=== PATIENT | male | born 1960 | race Caucasian/White ===

== ENCOUNTER → 2019-03-27 13:01 | Outpatient (CLI) | payer MEDICARE, SELFPAY ==
--- NOTE | 2019-03-27 13:00 | SP.MBSS_ITS ---
PRIMARY / SECONDARY DIAGNOSIS: dysphagia (R13.10) REFERRING PHYSICIAN: Dr. Sterling Grier MD. CURRENT DIET: regular textures, thin liquids DENTITION: WFL MENTAL STATUS: sufficient for participation RESPIRATORY STATUS: O2 via room air REASON FOR REFERRAL: The Patient is a 58 year old male referred for a modified barium swallow (MBS) study to objectively assess the Patients oropharyngeal swallow function under fluoroscopy secondary to persistent post irradiation dysphagia for both solids and liquids. MEDICAL HISTORY: Oropharyngeal cancer status post irradiation (2002), prior cerebrovascular accident, esophageal strictures status post dilatation (2003), status post cardiac stent placement (all per Patient report; no information in EMR). PREVIOUS MODIFIED BARIUM SWALLOW STUDY: None. ASSESSMENT PARAMETERS: The Patient participated in a Modified Barium Swallow (MBS) study on 03/27/2019. Dr. Ashraf was the radiologist present for this evaluation. This study was recorded in the lateral view and images were sent to PACs for storage. Scoring was completed through each trial using the 8-point Penetration-Aspiration Scale (PAS) and the Videofluoroscopic Scale Score (VSS), and summarized via the Modified Barium Swallow Impairment Profile (MBSImP) and the Bolus Residue Scale (BRS), with severity scoring through the Dysphagia Severity Rating Scale (DSRS), the Swallowing Performance Scale (PSP), and the Dynamic Imaging Grade of Swallowing Toxicity (DIGEST), and recommended diet textures through the International Dysphagia Diet Standardisation Initiative (IDDSI). RESULTS OF THE EVALUATION: The Patient presents with moderate to severe pharyngeal dysphagia (DSRS: 5; SPS: 7; DIGEST: grade III) with grade III SILENT aspiration of thin liquids, consistent penetration without consistent ejection of all viscosities, and significant pharyngeal dysmotility secondary to prior oropharyngeal cancer status post irradiation. OBJECTIVE ASSESSMENT OF SWALLOW FUNCTION (QUANTITATIVE ? PER TRIAL): PENETRATION / ASPIRATION SCALE (MCGOWAN): 1 = does not enter airway 2 = enters airway/above vocal folds/ejected 3 = enters airway/above vocal folds/not ejected 4 = enters airway/contacts vocal folds/ejected 5 = enters airway/contacts vocal folds/not ejected 6 = enters airway/below vocal folds/ejected 7 = enters airway/below vocal folds/not ejected despite effort 8 = enters airway/below vocal folds/no effort VIDEOFLOROSCOPIC SCALE SCORE (MCGOWAN): Grade I = aspiration of material that has penetrated into the laryngeal vestibule, intact cough reflex Grade II = aspiration < 10 % of the bolus, intact cough reflex Grade III = aspiration of < 10 % of the bolus, reduced cough reflex or aspiration of > 10 % of the bolus, intact cough reflex Grade IV = aspiration of > 10 % of the bolus, reduced cough reflex PENETRATION / ASPIRATION SCALE (SCORE) WITH VIDEOFLOROSCOPIC SCALE SCORE: Thin liquid - 5 mL tsp.: 8 ? Grade III Thin liquids via cup (single sip): 8 ? Grade III [place] thickened liquids via straw (single sip): 3 [place] thickened liquids via straw (single sip): 3 [place] thickened liquids via straw (single sip): 2 Pudding via spoon: 2 [place] thickened liquids via straw (chin tuck): 3 [place] thickened liquids via straw (single sip): 3 [place] thickened liquids via straw (post cough): 2 [place] thickened liquids via straw (post cough): 2 OBJECTIVE ASSESSMENT OF SWALLOW FUNCTION (QUANTITATIVE ? AGGREGATE): MODIFIED BARIUM SWALLOW IMPAIRMENT PROFILE (MBSImP) LABIAL SEAL: 0 (of 4) no labial escape TONGUE CONTROL: 0 (of 3) cohesive bolus BOLUS PREPARATION / MASTICATION: held due to safety concerns BOLUS TRANSPORT / LINGUAL MOTION: 1 (of 4) delayed initiation of motion ORAL RESIDUE: 2 (of 4) residue collection on oral structures INITIATION OF PHARYNGEAL SWALLOW: 1 (of 4) valleculae SOFT PALATE ELEVATION: 0 (of 4) no bolus between soft palate & pharyngeal wall LARYNGEAL ELEVATION: 2 (of 3) minimal superior movement / approximation ANTERIOR HYOID EXCURSION: 1 (of 2) partial movement EPIGLOTTIC MOVEMENT: 1 (of 2) partial inversion LARYNGEAL VESTIBULE CLOSURE: 1 (of 2) incomplete closure PHARYNGEAL STRIPPING WAVE: 2 (of 2) absent PE SEGMENT OPENIN (of 3) minimal distension / duration; marked obstruction TONGUE BASE RETRACTION: 4 (of 4) no visible posterior motion PHARYNGEAL RESIDUE: 4 (of 4) minimal to no pharyngeal clearance ESOPHAGEAL BOLUS CLEARANCE: could not view BOLUS RESIDUE SCALE (BRS): 6 (of 6) residue in valleculae, posterior pharyngeal wall, and piriform sinus DYSPHAGIA SEVERITY RATING SCALE (DSRS): 5 (moderate-severe) SWALLOWING PERFORMANCE SCALE (SPS): 7 (severe) DYNAMIC IMAGING GRADE OF SWALLOWING TOXICITY (DIGEST) DIGEST SAFETY GRADE: Grade 2 DIGEST EFFICIENCY GRADE: Grade 3 SUMMARY DIGEST GRADE: Grade 3 (severe) OBJECTIVE ASSESSMENT OF SWALLOW FUNCTION (QUALITATIVE): ORAL PREPARATORY PHASE: solid textures held due to safety concerns for asphyxiation given the profound level of pharyngeal dysmotility observed; sufficient anterior oral containment during presentation / manipulation; preserved management of breathing / bolus formation. ORAL TRANSITIONAL PHASE: inconsistent bolus manipulation / transportation possibly attributed to anticipatory effect (fully aware of dysphagia); overall sufficient oral clearance with textures trialed; sufficient oral containment across textures. PHARYNGEAL PHASE: no signs of pharyngeal dyssynchrony; reduced hyolaryngeal excursion and duration with insufficient laryngeal vestibule pressure generated to consistently expel penetrated material; profound pharyngeal dysmotility with little to no pharyngeal constriction, pharyngoesophageal segment relaxation, and very poor epiglottic deflection throughout trials, with nearly complete pharyngeal retention of semisolid textures; no signs of velopharyngeal impairments; ESOPHAGEAL PHASE: no obvious esophageal phase abnormalities observed. CONTRIBUTING / COMPLICATING FACTORS AND NOTABLE FINDINGS: absent cough in response to tracheobronchial aspiration (atussia); weak cued volitional cough intensity generated to expel penetrated material / tracheobronchial aspiration (dystussia); thickened appearance to the epiglottis. RESPONSE TO STRATEGIES: Insufficient / inconsistent effects noted from a variety of compensatory strategies implemented across studies, with best results noted with multiple swallows with liquid wash following semisolid ingestion with volitional post prandial cough. DYSPHAGIA ASSOCIATED MEDICAL CONSIDERATIONS / INTERVENTION CONSIDERATIONS: The Patient was noted to SILENTLY aspirate with thin liquids, with clinical assessment at bedside relying on identification of classic overt signs and symptoms of aspiration considered unreliable. Would consider the Patient to be at a higher risk of aspiration related medical complications / aspiration pneumonia / aspiration related pulmonary syndrome secondary to prior history of a cerebrovascular accident, prior oropharyngeal cancer status post radiation therapy presence of dysphagia with extensive pharyngeal phase impairment, presence of SILENT aspiration identified under fluoroscopy, and potential for tracheobronchial aspiration of more dense viscosities, Would consider this Patient to be a high risk for malnutrition and dehydration due to the extent of recommended liquid viscosities / diet texture restrictions and the related negative impact on palatability / intake pleasure / quality of life and anticipated smaller PO intake quantities, and the severity of dysphagia. May need to strongly consider alternative means of nutrition. INTERVENTION RECOMMENDATIONS AND CONSIDERATIONS: The Patient requires intensive skilled speech-language intervention targeting diet texture management and training / implementation of recommended compensatory strategies; training and implementation of recommended oropharyngeal strengthening exercises to facilitate improved / maintained laryngeal vestibule closure / pressure and pharyngeal motility; training and implementation of a home oral care protocol to reduce the effects of xerostomia and improve / maintain the integrity of the oral mucosa reducing the risk of aspiration related pulmonary complications; Patient / caregiver education regarding post-irradiation dysphagia and associated symptomology; Patient and caregiver training targeting meal preparation / thickened liquid preparation POST ASSESSMENT EDUCATION: Results and recommendations were briefly discussed with the Patient immediately following MBS completion, with the Patient verbalizing understanding and agreement with all recommendations and education provided, though further education is warranted. DIET TEXTURE RECOMMENDATIONS: Will recommend a pureed textured (IDDSI: 4), nectar thickened liquid (IDDSI: 2) diet RECOMMENDED COMPENSATORY STRATEGIES: Reduced bolus volume / rate of ingestion, cough following deglutition (considerations for training and implementation of the supraglottic swallow), liquid chaser, seated upright at 90 degrees during PO intake, remain upright for 30-60 minutes post meal (GERD precaution), medications one at a time with a liquid chaser. IMAGE COUNT: [id number] Samir Neves M.A., CCC-AVIATION SAFETY TECHNICIAN, CBIS MBSImP Certified, LSVT Certified [facility] Speech-Language Pathology Department [email or web address]
--- NOTE | 2019-03-27 13:05 | RAD_ITS ---
STUDY: SWALLOWING STUDY REASON FOR EXAM: Male, 58 years old. Patient had a previous larynx surgery for squamous cell cancer TECHNIQUE: The examination was performed with Speech Pathology in attendance. Under fluoroscopic observation, the patient ingested thin barium, thick barium, barium pudding, and barium coated cracker. FLUOROSCOPY TIME: 3:25 minutes/seconds RADIOLOGIST INVOLVEMENT: Dr. Carlos Ashraf observed and did fluoroscopy COMPARISON: None. FINDINGS: The following was observed during swallowing of the various mixtures of barium: Thin Barium: There was evidence of penetration and aspiration of thin barium Thick Barium: There was evidence of penetration of nectar thickened barium Barium Pudding: There was no evidence of aspiration or laryngeal penetration. Barium Coated Cracker: This was not given. RAD/Swallowing Function w/Video IMPRESSION: Aspiration penetration was performed with thin liquid barium and penetration was noted with nectar thickened barium. The swallow study findings were discussed with the patient by the speech pathologist at the conclusion of the examination. Please see speech pathology report for more information and recommendations. The procedure was performed by the speech therapist under the direct supervision of Dr. Carlos Ashraf Electronically Signed: Carlos Ashraf, at 15:38 EDT Tel , Service support ,
== END ==
PROVIDERS: Family Provider Family Medicine; PCP Family Medicine; Referring Provider Internal Medicine Gastroenterology; Visit Provider Internal Medicine Gastroenterology
DX: R13.10 Dysphagia, unspecified (principal)
CPT/HCPCS: 74230; 92611

== ENCOUNTER 2019-05-10 13:00 | Outpatient (RCR) | payer MEDICARE, SELFPAY ==
--- NOTE | 2019-04-05 13:09 | ST ---
[facility] Speech Pathology [address] [place] [address] Modified Barium Swallow Study MR#: [id number] Acct: [id number] Name: NOLBERTO AMAYA Rep #: [id number] : 1960 58 From: Samir Neves M.A., CCC-BOAT CLEANING SUPERVISOR PRIMARY / SECONDARY DIAGNOSIS: dysphagia (R13.10) REFERRING PHYSICIAN: Dr. Sterling Grier MD. CURRENT DIET: regular textures, thin liquids DENTITION: WFL MENTAL STATUS: sufficient for participation RESPIRATORY STATUS: O2 via room air REASON FOR REFERRAL: The Patient is a 58 year old male referred for a modified barium swallow (MBS) study to objectively assess the Patients oropharyngeal swallow function under fluoroscopy secondary to persistent post irradiation dysphagia for both solids and liquids. MEDICAL HISTORY: Oropharyngeal cancer status post irradiation (2002), prior cerebrovascular accident, esophageal strictures status post dilatation (2003), status post cardiac stent placement (all per Patient report; no information in EMR). PREVIOUS MODIFIED BARIUM SWALLOW STUDY: None. ASSESSMENT PARAMETERS: The Patient participated in a Modified Barium Swallow (MBS) study on 03/27/2019. Dr. Ashraf was the radiologist present for this evaluation. This study was recorded in the lateral view and images were sent to PACs for storage. Scoring was completed through each trial using the 8-point Penetration-Aspiration Scale (PAS) and the Videofluoroscopic Scale Score (VSS), and summarized via the Modified Barium Swallow Impairment Profile (MBSImP) and the Bolus Residue Scale (BRS), with severity scoring through the Dysphagia Severity Rating Scale (DSRS), the Swallowing Performance Scale (PSP), and the Dynamic Imaging Grade of Swallowing Toxicity (DIGEST), and recommended diet textures through the International Dysphagia Diet Standardisation Initiative (IDDSI). RESULTS OF THE EVALUATION: The Patient presents with moderate to severe pharyngeal dysphagia (DSRS: 5; SPS: 7; DIGEST: grade III) with grade III SILENT aspiration of thin liquids, consistent penetration without consistent ejection of all viscosities, and significant pharyngeal dysmotility secondary to prior oropharyngeal cancer status post irradiation. OBJECTIVE ASSESSMENT OF SWALLOW FUNCTION (QUANTITATIVE ? PER TRIAL): PENETRATION / ASPIRATION SCALE (MCGOWAN): 1 = does not enter airway 2 = enters airway/above vocal folds/ejected 3 = enters airway/above vocal folds/not ejected 4 = enters airway/contacts vocal folds/ejected 5 = enters airway/contacts vocal folds/not ejected 6 = enters airway/below vocal folds/ejected 7 = enters airway/below vocal folds/not ejected despite effort 8 = enters airway/below vocal folds/no effort VIDEOFLOROSCOPIC SCALE SCORE (MCGOWAN): Grade I = aspiration of material that has penetrated into the laryngeal vestibule, intact cough reflex Grade II = aspiration < 10 % of the bolus, intact cough reflex Grade III = aspiration of < 10 % of the bolus, reduced cough reflex or aspiration of > 10 % of the bolus, intact cough reflex Grade IV = aspiration of > 10 % of the bolus, reduced cough reflex PENETRATION / ASPIRATION SCALE (SCORE) WITH VIDEOFLOROSCOPIC SCALE SCORE: Thin liquid - 5 mL tsp.: 8 ? Grade III Thin liquids via cup (single sip): 8 ? Grade III [place] thickened liquids via straw (single sip): 3 [place] thickened liquids via straw (single sip): 3 [place] thickened liquids via straw (single sip): 2 Pud[place] via spoon: 2 [place] thickened liquids via straw (chin tuck): 3 [place] thickened liquids via straw (single sip): 3 [place] thickened liquids via straw (post cough): 2 [place] thickened liquids via straw (post cough): 2 OBJECTIVE ASSESSMENT OF SWALLOW FUNCTION (QUANTITATIVE ? AGGREGATE): MODIFIED BARIUM SWALLOW IMPAIRMENT PROFILE (MBSImP) LABIAL SEAL: 0 (of 4) no labial escape TONGUE CONTROL: 0 (of 3) cohesive bolus BOLUS PREPARATION / MASTICATION: held due to safety concerns BOLUS TRANSPORT / LINGUAL MOTION: 1 (of 4) delayed initiation of motion ORAL RESIDUE: 2 (of 4) residue collection on oral structures INITIATION OF PHARYNGEAL SWALLOW: 1 (of 4) valleculae SOFT PALATE ELEVATION: 0 (of 4) no bolus between soft palate & pharyngeal wall LARYNGEAL ELEVATION: 2 (of 3) minimal superior movement / approximation ANTERIOR HYOID EXCURSION: 1 (of 2) partial movement EPIGLOTTIC MOVEMENT: 1 (of 2) partial inversion LARYNGEAL VESTIBULE CLOSURE: 1 (of 2) incomplete closure PHARYNGEAL STRIPPING WAVE: 2 (of 2) absent PE SEGMENT OPENIN (of 3) minimal distension / duration; marked obstruction TONGUE BASE RETRACTION: 4 (of 4) no visible posterior motion PHARYNGEAL RESIDUE: 4 (of 4) minimal to no pharyngeal clearance ESOPHAGEAL BOLUS CLEARANCE: could not view BOLUS RESIDUE SCALE (BRS): 6 (of 6) residue in valleculae, posterior pharyngeal wall, and piriform sinus DYSPHAGIA SEVERITY RATING SCALE (DSRS): 5 (moderate-severe) SWALLOWING PERFORMANCE SCALE (SPS): 7 (severe) DYNAMIC IMAGING GRADE OF SWALLOWING TOXICITY (DIGEST) DIGEST SAFETY GRADE: Grade 2 DIGEST EFFICIENCY GRADE: Grade 3 SUMMARY DIGEST GRADE: Grade 3 (severe) OBJECTIVE ASSESSMENT OF SWALLOW FUNCTION (QUALITATIVE): ORAL PREPARATORY PHASE: solid textures held due to safety concerns for asphyxiation given the profound level of pharyngeal dysmotility observed; sufficient anterior oral containment during presentation / manipulation; preserved management of breathing / bolus formation. ORAL TRANSITIONAL PHASE: inconsistent bolus manipulation / transportation possibly attributed to anticipatory effect (fully aware of dysphagia); overall sufficient oral clearance with textures trialed; sufficient oral containment across textures. PHARYNGEAL PHASE: no signs of pharyngeal dyssynchrony; reduced hyolaryngeal excursion and duration with insufficient laryngeal vestibule pressure generated to consistently expel penetrated material; profound pharyngeal dysmotility with little to no pharyngeal constriction, pharyngoesophageal segment relaxation, and very poor epiglottic deflection throughout trials, with nearly complete pharyngeal retention of semisolid textures; no signs of velopharyngeal impairments; ESOPHAGEAL PHASE: no obvious esophageal phase abnormalities observed. CONTRIBUTING / COMPLICATING FACTORS AND NOTABLE FINDINGS: absent cough in response to tracheobronchial aspiration (atussia); weak cued volitional cough intensity generated to expel penetrated material / tracheobronchial aspiration (dystussia); thickened appearance to the epiglottis. RESPONSE TO STRATEGIES: Insufficient / inconsistent effects noted from a variety of compensatory strategies implemented across studies, with best results noted with multiple swallows with liquid wash following semisolid ingestion with volitional post prandial cough. DYSPHAGIA ASSOCIATED MEDICAL CONSIDERATIONS / INTERVENTION CONSIDERATIONS: The Patient was noted to SILENTLY aspirate with thin liquids, with clinical assessment at bedside relying on identification of classic overt signs and symptoms of aspiration considered unreliable. Would consider the Patient to be at a higher risk of aspiration related medical complications / aspiration pneumonia / aspiration related pulmonary syndrome secondary to prior history of a cerebrovascular accident, prior oropharyngeal cancer status post radiation therapy presence of dysphagia with extensive pharyngeal phase impairment, presence of SILENT aspiration identified under fluoroscopy, and potential for tracheobronchial aspiration of more dense viscosities, Would consider this Patient to be a high risk for malnutrition and dehydration due to the extent of recommended liquid viscosities / diet texture restrictions and the related negative impact on palatability / intake pleasure / quality of life and anticipated smaller PO intake quantities, and the severity of dysphagia. May need to strongly consider alternative means of nutrition. INTERVENTION RECOMMENDATIONS AND CONSIDERATIONS: The Patient requires intensive skilled speech-language intervention targeting diet texture management and training / implementation of recommended compensatory strategies; training and implementation of recommended oropharyngeal strengthening exercises to facilitate improved / maintained laryngeal vestibule closure / pressure and pharyngeal motility; training and implementation of a home oral care protocol to reduce the effects of xerostomia and improve / maintain the integrity of the oral mucosa reducing the risk of aspiration related pulmonary complications; Patient / caregiver education regarding post-irradiation dysphagia and associated symptomology; Patient and caregiver training targeting meal preparation / thickened liquid preparation POST ASSESSMENT EDUCATION: Results and recommendations were briefly discussed with the Patient immediately following MBS completion, with the Patient verbalizing understanding and agreement with all recommendations and education provided, though further education is warranted. DIET TEXTURE RECOMMENDATIONS: Will recommend a pureed textured (IDDSI: 4), nectar thickened liquid (IDDSI: 2) diet RECOMMENDED COMPENSATORY STRATEGIES: Reduced bolus volume / rate of ingestion, cough following deglutition (considerations for training and implementation of the supraglottic swallow), liquid chaser, seated upright at 90 degrees during PO intake, remain upright for 30-60 minutes post meal (GERD precaution), medications one at a time with a liquid chaser. IMAGE COUNT: [id number] Samir Neves M.A., GRECIA-BOAT CLEANING SUPERVISOR, CBIS MBSImP Certified, LSVT Certified [facility] Speech-Language Pathology Department 03/27/19 [id number] <Electronically signed by Samir Neves M.A., CCC-BOAT CLEANING SUPERVISOR> Date Samir Neves M.A., CCC-BOAT CLEANING SUPERVISOR Co-Signature Required for all Medicare patients Date/Time Co-Signature
--- NOTE | 2019-04-26 14:56 | HP.SP.AD_ITS ---
History - History Date of Eval: 04/05/19 Medical Diagnosis (from RX): R13.10 Date of Onset of Diagnosis: 03/27/2019 Previous speech therapy: Yes Other Relevant Medical History/Diagnoses/Surgery: oropharyngeal cancer status post radiation (2003), prior cerebrovascular accident, esophageal strictures status post dilatation (2003), status post cardiac stent placement (all per pt report from MBS study on 03/27/2019; no information in EMR), hx of reflux. 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 Objective Oral Motor - Oral Status Dentition: Upper Dentures, Lower Dentures - Labial Impairment: WNL Observation at Rest: Left Droop Closure: WNL Pucker: WFL Retraction: WFL Alternating Pucker/Retraction: WFL Involuntary Movement noted: No - Lingual Impairment: Mild Protrusion: WFL Retraction: Mild Lateralization: Mild Involuntary Movement: No - Lingual Comments Comments: Mild/Mod impairment in strength and ROM. - Jaw Impairment: WNL Opening: WNL Closing: WNL - Respiratory Status Respiratory Status: Room Air Subjective Dysphagia - Symptoms Reported Symptoms/Problems with: Coughing, Choking, Difficulty Swallowing Solids, Pain on Swallowing Other: Pain in R side of throat at level of thyroid. - Current Diet Solids Current Diet: Regular, Pureed Other: Pt reports he avoids beef and has difficulty with shrimp, pepperoni. - Current Diet Liquids Current Liquids: Thin Objective Dysphagia - Administered by Administered by: Self - [place] Thickened Liquids Administered via: Cup Symptoms: Throat Clearing Laryngeal Elevation: Impaired Oral Holding: No Gagging: No Comments: Pt requires multiple swallows (3-4) to complete each sip. - Pureed Symptoms: Throat Clearing, Couging, Immediate, Delayed Laryngeal Elevation: Impaired Comments: Pt requires multiple swallows (4-5) to complete each bite. Wet vocal quality present following bites of applesauce. Modified Barium Results Hx MBS Report Entered: Yes MBS Results (from prior exam): 04/05/19 13:09 Speech Therapy by Michaela Rojas [facility] Speech Pathology [address] [place] [address] Modified Barium Swallow Study MR#: [id number] Acct: [id number] Name: NOLBERTO AMAYA Rep #:[id number] : 1960 58 From: Samir Epstein, [facility]-[employer] CUSTODIAN PRIMARY / SECONDARY DIAGNOSIS: dysphagia (R13.10) REFERRING PHYSICIAN: Dr. Sterling Grier MD. CURRENT DIET: regular textures, thin liquids DENTITION: WFL MENTAL STATUS: sufficient for participation RESPIRATORY STATUS: O2 via room air REASON FOR REFERRAL: The Patient is a 58 year old male referred for a modified barium swallow (MBS) study to objectively assess the Patients oropharyngeal swallow function under fluoroscopy secondary to persistent post irradiation dysphagia for both solids and liquids. MEDICAL HISTORY: Oropharyngeal cancer status post irradiation (2002), prior cerebrovascular accident, esophageal strictures status post dilatation (2003), status post cardiac stent placement (all per Patient report; no information in EMR). PREVIOUS MODIFIED BARIUM SWALLOW STUDY: None. ASSESSMENT PARAMETERS: The Patient participated in a Modified Barium Swallow (MBS) study on 03/27/2019. Dr. Ashraf was the radiologist present for this evaluation. This study was recorded in the lateral view and images were sent to PACs for storage. Scoring was completed through each trial using the 8-point Penetration-Aspiration Scale (PAS) and the Videofluoroscopic Scale Score (VSS), and summarized via the Modified Barium Swallow Impairment Profile (MBSImP) and the Bolus Residue Scale (BRS), with severity scoring through the Dysphagia Severity Rating Scale (DSRS), the Swallowing Performance Scale (PSP), and the Dynamic Imaging Grade of Swallowing Toxicity (DIGEST), and recommended diet textures through the International Dysphagia Diet Standardisation Initiative (IDDSI). RESULTS OF THE EVALUATION: The Patient presents with moderate to severe pharyngeal dysphagia (DSRS: 5; SPS: 7; DIGEST: grade III) with grade III SILENT aspiration of thin liquids, consistent penetration without consistent ejection of all viscosities, and significant pharyngeal dysmotility secondary to prior oropharyngeal cancer status post irradiation. OBJECTIVE ASSESSMENT OF SWALLOW FUNCTION (QUANTITATIVE ? PER TRIAL): PENETRATION / ASPIRATION SCALE (MCGOWAN): 1 = does not enter airway 2 = enters airway/above vocal folds/ejected 3 = enters airway/above vocal folds/not ejected 4 = enters airway/contacts vocal folds/ejected 5 = enters airway/contacts vocal folds/not ejected 6 = enters airway/below vocal folds/ejected 7 = enters airway/below vocal folds/not ejected despite effort 8 = enters airway/below vocal folds/no effort VIDEOFLOROSCOPIC SCALE SCORE (MCGOWAN): Grade I = aspiration of material that has penetrated into the laryngeal vestibule, intact cough reflex Grade II = aspiration < 10 % of the bolus, intact cough reflex Grade III = aspiration of < 10 % of the bolus, reduced cough reflex or aspiration of > 10 % of the bolus, intact cough reflex Grade IV = aspiration of > 10 % of the bolus, reduced cough reflex PENETRATION / ASPIRATION SCALE (SCORE) WITH VIDEOFLOROSCOPIC SCALE SCORE: Thin liquid - 5 mL tsp.: 8 ? Grade III Thin liquids via cup (single sip): 8 ? Grade III [place] thickened liquids via straw (single sip): 3 [place] thickened liquids via straw (single sip): 3 [place] thickened liquids via straw (single sip): 2 Pudding via spoon: 2 [place] thickened liquids via straw (chin tuck): 3 [place] thickened liquids via straw (single sip): 3 [place] thickened liquids via straw (post cough): 2 [place] thickened liquids via straw (post cough): 2 OBJECTIVE ASSESSMENT OF SWALLOW FUNCTION (QUANTITATIVE ? AGGREGATE): MODIFIED BARIUM SWALLOW IMPAIRMENT PROFILE (MBSImP) LABIAL SEAL: 0 (of 4) no labial escape TONGUE CONTROL: 0 (of 3) cohesive bolus BOLUS PREPARATION / MASTICATION: held due to safety concerns BOLUS TRANSPORT / LINGUAL MOTION: 1 (of 4) delayed initiation of motion ORAL RESIDUE: 2 (of 4) residue collection on oral structures INITIATION OF PHARYNGEAL SWALLOW: 1 (of 4) valleculae SOFT PALATE ELEVATION: 0 (of 4) no bolus between soft palate & pharyngeal wall LARYNGEAL ELEVATION: 2 (of 3) minimal superior movement / approximation ANTERIOR HYOID EXCURSION: 1 (of 2) partial movement EPIGLOTTIC MOVEMENT: 1 (of 2) partial inversion LARYNGEAL VESTIBULE CLOSURE: 1 (of 2) incomplete closure PHARYNGEAL STRIPPING WAVE: 2 (of 2) absent PE SEGMENT OPENIN (of 3) minimal distension / duration; marked obstruction TONGUE BASE RETRACTION: 4 (of 4) no visible posterior motion PHARYNGEAL RESIDUE: 4 (of 4) minimal to no pharyngeal clearance ESOPHAGEAL BOLUS CLEARANCE: could not view BOLUS RESIDUE SCALE (BRS): 6 (of 6) residue in valleculae, posterior pharyngeal wall, and piriform sinus DYSPHAGIA SEVERITY RATING SCALE (DSRS): 5 (moderate-severe) SWALLOWING PERFORMANCE SCALE (SPS): 7 (severe) DYNAMIC IMAGING GRADE OF SWALLOWING TOXICITY (DIGEST) DIGEST SAFETY GRADE: Grade 2 DIGEST EFFICIENCY GRADE: Grade 3 SUMMARY DIGEST GRADE: Grade 3 (severe) OBJECTIVE ASSESSMENT OF SWALLOW FUNCTION (QUALITATIVE): ORAL PREPARATORY PHASE: solid textures held due to safety concerns for asphyxiation given the profound level of pharyngeal dysmotility observed; sufficient anterior oral containment during presentation / manipulation; preserved management of breathing / bolus formation. ORAL TRANSITIONAL PHASE: inconsistent bolus manipulation / transportation possibly attributed to anticipatory effect (fully aware of dysphagia); overall sufficient oral clearance with textures trialed; sufficient oral containment across textures. PHARYNGEAL PHASE: no signs of pharyngeal dyssynchrony; reduced hyolaryngeal excursion and duration with insufficient laryngeal vestibule pressure generated to consistently expel penetrated material; profound pharyngeal dy smotility with little to no pharyngeal constriction, pharyngoesophageal segment relaxation, and very poor epiglottic deflection throughout trials, with nearly complete pharyngeal retention of semisolid textures; no signs of velopharyngeal impairments; ESOPHAGEAL PHASE: no obvious esophageal phase abnormalities observed. CONTRIBUTING / COMPLICATING FACTORS AND NOTABLE FINDINGS: absent cough in response to tracheobronchial aspiration (atussia); weak cued volitional cough intensity generated to expel penetrated material / tracheobronchial aspiration (dystussia); thickened appearance to the epiglottis. RESPONSE TO STRATEGIES: Insufficient / inconsistent effects noted from a variety of compensatory strategies implemented across studies, with best results noted with multiple swallows with liquid wash following semisolid ingestion with volitional post prandial cough. DYSPHAGIA ASSOCIATED MEDICAL CONSIDERATIONS / INTERVENTION CONSIDERATIONS: The Patient was noted to SILENTLY aspirate with thin liquids, with clinical assessment at bedside relying on identification of classic overt signs and symptoms of aspiration considered unreliable. Would consider the Patient to be at a higher risk of aspiration related medical complications / aspiration pneumonia / aspiration related pulmonary syndrome secondary to prior history of a cerebrovascular accident, prior oropharyngeal cancer status post radiation therapy presence of dysphagia with extensive pharyngeal phase impairment, presence of SILENT aspiration identified under fluoroscopy, and potential for tracheobronchial aspiration of more dense viscosities, Would consider this Patient to be a high risk for malnutrition and dehydration due to the extent of recommended liquid viscosities / diet texture restrictions and the related negative impact on palatability / intake pleasure / quality of life and anticipated smaller PO intake quantities, and the severity of dysphagia. May need to strongly consider alternative means of nutrition. INTERVENTION RECOMMENDATIONS AND CONSIDERATIONS: The Patient requires intensive skilled speech-language intervention targeting diet texture management and training / implementation of recommended compensatory strategies; training and implementation of recommended oropharyngeal strengthening exercises to facilitate improved / maintained la ryngeal vestibule closure / pressure and pharyngeal motility; training and implementation of a home oral care protocol to reduce the effects of xerostomia and improve / maintain the integrity of the oral mucosa reducing the risk of aspiration related pulmonary complications; Patient / caregiver education regarding post-irradiation dysphagia and associated symptomology; Patient and caregiver training targeting meal preparation / thickened liquid preparation POST ASSESSMENT EDUCATION: Results and recommendations were briefly discussed with the Patient immediately following MBS completion, with the Patient verbalizing understanding and agreement with all recommendations and education provided, though further education is warranted. DIET TEXTURE RECOMMENDATIONS: Will recommend a pureed textured (IDDSI: 4), nectar thickened liquid (IDDSI: 2) diet RECOMMENDED COMPENSATORY STRATEGIES: Reduced bolus volume / rate of ingestion, cough following deglutition (considerations for training and implementation of the supraglottic swallow), liquid chaser, seated upright at 90 degrees during PO intake, remain upright for 30-60 minutes post meal (GERD precaution), medications one at a time with a liquid chaser. IMAGE COUNT: [id number] Samir Neves M.A., CCC-ALEX, CBIS MBSImP Certified, LSVT Certified [facility] Speech-Language Pathology Department [email or web address] 03/27/19 [id number] <Electronically signed by Samir Neves M.A., CCC-RIDING SIL[employer] CUSTODIAN> Date _ Samir Neves M.A., CCC-RIDING SILKS CUSTODIAN Co-Signature Required for all Medicare patients Date/Time _ Co-Signature Initialized on 04/05/19 13:09 - END OF NOTE Dysphagia Assessment - Swallowing Impairment Contributing Factors to Swallowing Impairment: Reduced Oral Strength/Coordination/Sensation, Mastication Inefficiency, Impaired Oral- Pharyngeal Transport, Delayed Swallow Initiation, Reduced Laryngeal Excursion Other: Ill-fitting dentures; pt stated he cannot afford to get dentures refitt ed. - Impact Impact on Safety & Functioning: Risk for Aspiration, Risk for Inadequate Nutrition/Hydration Comments: Increased risk for aspiration PNA d/t decreased pharyngeal motility, hx of oropharyngeal cancer, hx of CVA. - Recommendations Modified Barium Swallow/Cookie Swallow Recommended: No Swallowing Treatment: Yes - Diet Texture Recommendations Solids Other: Pureed Liquids: [place] Thick [place] free water Protocol: No - Safety Saftey Precautions/Swallowing Recommendations (Check all that Apply): Needs Verbal Cues to Use Recommended Strategies, Upright Position at Least 30 Minutes After Meals, Small Sips & Bites when Eating, Multiple Swallows Other: Liquid wash all bites, supraglottic swallow, slow rate, medications 1 at a time with liquid lissette. Continued education required for strict oral care plan at home: brushing teeth frequently throughout the day, including before/after meals to reduce risk for PNA. - Compensatory Strategies Compensatory Strategies: Cough after swallow Plan - Plan Plan: Recommendation for dysphagia tx 2X/week X5 weeks to address functional deficits in oropharyngeal strength and ROM, implement use of compensatory strategies and maneuvers to decrease risk for aspiration/penetration, provide pt education in strict home oral care routine, and educate pt in food/drink preparation for current diet recommendation of puree diet, nectar thick liquids. Pt provided thorough education on this date for results of MBS study, current diet recommendation (provided written educational materials related to diet guidelines and preparation), compensatory strategies and maneuvers to decrease risk for aspiration, and oropharyngeal exercises to complete at home daily 3- 4X/day. Pt requires continued education on information above and education on strict oral care routine for home to further reduce risk for aspiration PNA. Pt is not safe for trials for diet upgrade at this time. Repeat MBS study to be recommended at therapist's discretion during POC to determine potential for diet upgrade. - Recommendations MBS: No Treatment Warranted: Yes - Frequency Frequency: 2x /Week Duration: 4-6 Weeks - Prognosis Prognosis: Good - Goals that are Established: Determination:: Goals will be added/modified as deemed necessary and appropriate. Therapy will be discontinued when results of re-evaluation indicate therapy is no longer needed or lack of progress has been documented. - Goal #1-5 Goal #1: Pt will consume LRD with no overt s/s of penetration/aspiration with 90% accuracy with use of compensatory strategies to decrease risk for penetration/aspiration and choking in 3/4 consecutive sessions. Prompts: Min Goal #2: Pt will verbalize/demonstrate follow through with use of recommended compensatory strategies and maneuvers, food/drink preparation in accordance with current diet recommendation, and oral care protocol with 90% accuracy provided min verbal cues in 3/4 consecutive sessions. Prompts: Mod Accuracy: 60% Goal #3: Pt will complete oropharyngeal strengthening with 100% acc to improve pharyngeal phase of swallow and decrease risk for penetration/aspiration. Prompts: Mod Education - Patient Instruction Patient Education: Treatment Plan, Goals, Safety Precautions, Diet Level
--- NOTE | 2019-06-09 09:23 | HP.SP.DC ---
ST Discharge Summary - Discharged: Discharge: Oscar Carlisle is discharged from [facility] speech therapy as of June 07, 2019. He was evaluated on 04/05/19 for dysphagia following throat cancer. The patient attended 4 sessions and then was placed on a home program as he was able to complete all oropharygeal exercises independently. He had a repeat MBS in May with continued recommendation for pureed foods and nectar thickened liquids. During the course of his therapy, he declined to follow diet recommendations. He verbalized an understanding of what may happen if he does not follow the recommendations. At the time of discharge, he again stated that he will likely do a regular diet with thin liquids. Further therapy is not recommended at this time and he is in agreement. He can continue to do his exercises and have a repeat MBS in 6-12 months if he wishes. A copy of this discharge summary will be sent to his referring physician.
== END 2019-05-10 19:00 | disposition home or self-care (01) ==
LOC: SP 13:00
PROVIDERS: Family Provider Family Medicine; PCP Family Medicine; Referring Provider Internal Medicine Gastroenterology; Visit Provider Internal Medicine Gastroenterology
DX: R13.10 Dysphagia, unspecified (principal)
CPT/HCPCS: 92507; 92526; 92610

== ENCOUNTER → 2019-05-29 12:46 | Outpatient (CLI) | payer MEDICARE, SELFPAY ==
--- NOTE | 2019-05-29 12:48 | RAD_ITS ---
STUDY: SWALLOWING STUDY REASON FOR EXAM: Male, 58 years old. Dysphagia. Post radiation therapy. TECHNIQUE: The examination was performed with Speech Pathology in attendance. Under fluoroscopic observation, the patient ingested thin barium, thick barium, barium pudding, and barium coated cracker. FLUOROSCOPY TIME: 4:31 minutes/seconds. [id number] images were obtained. RADIOLOGIST INVOLVEMENT: Radiologist was present and providing direct supervision. COMPARISON: Comparison is made with prior study dated March 27, 2019. FINDINGS: The following was observed during swallowing of the various mixtures of barium: There is narrowing of the oropharynx. Thin Barium: Silent aspiration with ingestion of thin. Moderate residual within the vallecula and piriform sinus. The aspiration occurs from the retrograde displacement of the residual in the piriform sinus. Thick Barium: Silent aspiration with ingestion of nectar thickened liquids. Moderate residual in the vallecula and piriform sinuses. Barium Pudding: Large amount of residual in the vallecula and piriform sinuses. Barium Coated Cracker: Large amount of residual in the vallecula and piriform sinuses. RAD/Swallowing Function w/Video IMPRESSION: Narrowing of the oropharynx with aspiration of thin liquids and nectar thickened liquids. Large amount of residual in the vallecula and piriform sinuses. The swallow study findings were discussed with the patient by the speech pathologist at the conclusion of the examination. Please see speech pathology report for more information and recommendations. Electronically Signed: Sean Small, at 14:06 EST , Service support ,
--- NOTE | 2019-05-29 13:00 | SP.MBSS_ITS ---
PRIMARY / SECONDARY DIAGNOSIS: dysphagia (R13.10) REFERRING PHYSICIAN: Dr. Sterling Grier MD. CURRENT DIET: regular textures, thin liquids DENTITION: upper/lower dentures in place, reported to be poorly fitting MENTAL STATUS: sufficient ability to comprehend and follow instruction for participation in MBS RESPIRATORY STATUS: oxygenating on room air REASON FOR REFERRAL: The Patient is a 58 year old male referred for a modified barium swallow (MBS) study to objectively assess the Patients oropharyngeal swallow function under fluoroscopy secondary to persistent post irradiation dysphagia for both solids and liquids; has been following for outpatient dysphagia intervention. Pt reports completing oral and oropharyngeal strengthening/ROM exercises 2-3x daily w/ sufficient explanation of exercises to suggest independent completion. MEDICAL HISTORY: Oropharyngeal cancer status post irradiation (2002), prior cerebrovascular accident, esophageal strictures status post dilatation (2003), status post cardiac stent placement. PREVIOUS MODIFIED BARIUM SWALLOW STUDY: 03/27/2019 - moderate to severe pharyngeal dysphagia w/ silent aspiration ASSESSMENT PARAMETERS: The Patient participated in a Modified Barium Swallow (MBS) study on 03/27/2019. Dr. Small was the radiologist present for this evaluation. This study was recorded in the lateral view and images were sent to PACs for storage. Scoring was completed through each trial using the 8-point Penetration-Aspiration Scale (PAS) and summarized via the Modified Barium Swallow Impairment Profile (MBSImP). with recommended diet texture and liquid viscosity through the International Dysphagia Diet Standardisation Initiative (IDDSI). RESULTS OF THE EVALUATION This patient presents with moderate to severe pharyngeal dysphagia with SILENT aspiration of thin liquids, consistent penetration without consistent ejection of all other viscosities, and significant pharyngeal dysmotility secondary to prior oropharyngeal cancer status post irradiation these findings are consistent w/ prior MBS completed 03/29/2019. PENETRATION / ASPIRATION SCALE (MCGOWAN): 1 = does not enter airway 2 = enters airway/above vocal folds/ejected 3 = enters airway/above vocal folds/not ejected 4 = enters airway/contacts vocal folds/ejected 5 = enters airway/contacts vocal folds/not ejected 6 = enters airway/below vocal folds/ejected 7 = enters airway/below vocal folds/not ejected despite effort 8 = enters airway/below vocal folds/no effort PENETRATION / ASPIRATION SCALE (SCORE): * Thin liquid - 5 mL tsp.: 6 * Thin liquid - 5 mL tsp. supraglottic swallow: 4 * Thin liquids via cup (single sip) supraglottic swallow: 8 * [place] thickened liquids via cup (single sip): 3 * [place] thickened liquids via straw (single sip): 3 * Pudding via spoon: 3 * Thin liquids via cup (single sip): 8 * Thin liquids via cup (single sip): 8 * ? barium coated Ary Garciaie: 3 MODIFIED BARIUM SWALLOW IMPAIRMENT PROFILE (MBSImP) * LABIAL SEAL: no labial escape * TONGUE CONTROL DURING BOLUS MANIPULATION: cohesive bolus between tongue to palatal seal * BOLUS PREPARATION / MASTICATION: timely and efficient chewing and mashing * BOLUS TRANSPORT / LINGUAL MOTION: brisk tongue motionORAL RESIDUE: trace residue lining oral structures * INITIATION OF PHARYNGEAL SWALLOW: bolus head in valleculae at first hyoid excursion * SOFT PALATE ELEVATION: escape to nasopharynx * LARYNGEAL ELEVATION: minimal superior movement of thyroid cartilage/minimal approximation of arytenoids cartilage to epiglottic petiole * ANTERIOR HYOID EXCURSION: partial anterior movement * EPIGLOTTIC MOVEMENT: partial epiglottic inversion * LARYNGEAL VESTIBULE CLOSURE AT HEIGHT OF SWALLOW: incomplete laryngeal vestibule closure with narrow column of air/contrast in laryngeal vestibule * PHARYNGEAL STRIPPING WAVE: pharyngeal stripping wave absen * PHARYNGOESOPHAGEAL SEGMENT OPENING: minimal distension and minimal duration with marked obstruction of flow * TONGUE BASE RETRACTION: no visible posterior motion of tongue base * PHARYNGEAL RESIDUE: minimal to no pharyngeal clearance * ESOPHAGEAL BOLUS CLEARANCE IN THE UPRIGHT POSITION: could not view BOLUS RESIDUE SCALE (BRS): 6 (of 6) residue in valleculae, posterior pharyngeal wall,and pyriform sinus OBJECTIVE ASSESSMENT OF SWALLOW FUNCTION ORAL PHASE: ? solid texture Ary Holden coated in barium trialed as the patient reports consuming solid textures regularly at home. Sufficient oral containment of all consistencies w/out anterior bolus leakage or premature posterior pharyngeal bolus entry. Noted oral holding prior to swallow onset, suspect d/t sensation of poor pharyngeal clearance. Sufficient oral clearance w/ only trace oral residue retention post deglutition. PHARYNGEAL PHASE: Mild delay in pharyngeal swallow onset w/ bolus reaching the valleculae prior to swallow initiation. Absent base of tongue retraction w/ thin liquids penetrating the nasopharynx during deglutition. Incomplete anterior hyoid movement and minimal thyroid elevation resulted in insufficient laryngeal vestibule closure during the swallow w/ penetration during the swallow along w/ penetration of pharyngeal residue from the pyriform sinuses into the laryngeal vestibule w/ additional swallows attempted to clear pharyngeal residue. Severe pharyngeal dysmotility noted w/ copious pharyngeal residue retention along the base of tongue, valleculae, pyriform sinuses and posterior pharyngeal wall. Minimal pharyngoesophageal segment relaxation appreciated w/ less than 10% of each bolus clearing into the esophagus despite numerous swallows per bolus utilized. The patient used 9 swallows for 1 tsp pudding, with a majority of the bolus remaining w/in the pharynx after 9 swallows. Aspiration of thin liquid was silent, although when cued to immediately cough post deglutition and re-swallow, it was effective to expel contrast from below the vocal folds, but not to clear the laryngeal vestibule. Pt was noted to silently aspirate thin liquid residue spilling from the pyriforms into the laryngeal vestibule during oral prep and pharyngeal transport of solid textures. Cued cough was delayed in this instance and it was not effective to expel contrast from the anterior tracheal wall. ESOPHAGEAL PHASE: no obvious esophageal phase abnormalities observed. RESPONSE TO STRATEGIES: Immediate cough and re-swallow was effective to expel contrast from below the vocal folds, but not to clear the laryngeal vestibule. Right and left head turn trialed w/ deglutition, not effective to improve pharyngeal residue clearance. Supraglottic swallow maneuver was not effective to improve arytenoid to aryepiglottic fold contact and did not improve laryngeal vestibule closure. DIET RECOMMENDATION: pureed textures/nectar thickened liquids COMPENSATORY STRATEGIES RECOMMENDED: alternate small bites and small sips, multiple swallows per bolus, cough and re-swallow, meds crushed and consumed mixed w/ purees as appropriate per pharmacy, seated upright at 90 degrees during PO intake, remain upright for 30-60 minutes post meal (GERD precaution). INTERVENTION CONSIDERATIONS: This patient requires intensive skilled speech- language intervention targeting diet texture management w/ use of compensatory strategies. Continued intensive oropharyngeal strengthening exercise program is recommended targeting tongue base retraction/hyolaryngeal excursion/epiglottic inversion/laryngeal vestibule closure/pharyngeal motility. The patient would benefit from additional instruction on pureed texture and nectar thickened liquid preparation, as well as oral hygiene. This patient was noted to SILENTLY aspirate with thin liquids. A repeat MBS is recommended to objectively assess swallow function prior to advancement is recommended POST ASSESSMENT EDUCATION: 30+ minutes were spent reviewing images from MBS to improve patient comprehension of the deficits identified and rationale for modified diet texture/liquid consistency recommendations. Sample nectar thickened liquid starter packs were provided to the patient. The patient verbalized understanding of all education provided, and the risks associated w/ aspiration, but indicates poor likelihood of adherence to modified diet. Reinforcement and continued education is recommended. IMAGE COUNT: [id number]
== END ==
PROVIDERS: Family Provider Family Medicine; PCP Family Medicine; Referring Provider Internal Medicine Gastroenterology; Visit Provider Internal Medicine Gastroenterology
DX: R13.19 Other dysphagia (principal); Z92.3 Personal history of irradiation
CPT/HCPCS: 74230; 92611

== ENCOUNTER → 2019-06-19 11:22 | Outpatient (CLI) | payer MEDICARE, SELFPAY ==
--- NOTE | 2019-06-19 12:00 | PET_ITS ---
EXAMINATION: FDG PET/CT ? Head to Pelvis INDICATIONS: A 58-year-old male with reported history of head and neck carcinoma presenting for initial staging examination. COMPARISON EXAMINATION: None available INDEX LESION SIZE SUV INTERPRETATION Pharyngeal mucosal space-hypopharynx 50.4 x 45.6-mm (frame 303) 13.8 Fulfills quantitative criteria for viable neoplasm Right lateral, bilateral anterior neck 8.7-mm (largest) (frame 297) 3.9 (max) Fulfills quantitative criteria for viable neoplasm Mediastinal structures (n=2) 13.4-mm (largest) (frame 240) 7.4 (max) Fulfills quantitative criteria for viable neoplasm Left and right lobe hepatic parenchyma 31.5 x 53.1-mm (largest) (Frame 175) 12.2 (max) ratio > 2.0 Fulfills quantitative criteria for viable neoplasm Right sacrum, right sacral ala 9.5 (max) Fulfills quantitative criteria for viable neoplasm NON-INDEX LESION SIZE SUV INTERPRETATION Right-left lobe thyroid u-shaped 9.1 (max) May be further investigated with thyroid ultrasound TECHNIQUE: Following the intravenous administration of 15.97 mCi of F-18 deoxyglucose via the right antecubital fossa, multiplanar image acquisitions of the head, neck, chest, abdomen and pelvis to level of mid thigh, obtained at one hour post radiopharmaceutical administration contemporaneously interpreted with the current CT of the head, neck, chest, abdomen and pelvis to level of mid thigh, dated 06/19/19 via coregistration reveal: SERUM GLUCOSE LEVEL: 78 mg/dl. HEIGHT: 71 inches. WEIGHT: 150 lbs. FINDINGS: 1. There is an increase in glucose metabolism identified in the pharyngeal mucosal space-tongue base extending caudal to the hypopharynx, vallecula with potential inferior extension to the right pyriform sinus generating a calculated maximal standard uptake value of 13.8. The maximal axial diameter of the metabolic, morphologic abnormality on review of CT of the head and neck dated 06/19/19 is 50.4-mm (transverse) x 45.6-mm (AP). 2. Several nodular foci of increased FDG concentration are noted in the right lateral neck involving level III, a nodular focus in the left anterior neck involving level VII, right anterior neck involving level . The calculated maximal standard uptake value is 3.9. The maximal axial diameter of the largest, most conspicuous soft tissue density is 8.7-mm (AP). 3. An increase in glucose metabolism is defined in the superior mediastinum to the right of the midline, carinal level anterior mediastinum in two separate nodular presentations generating a calculated maximal standard uptake value of 7.4. The maximal axial diameter of the corresponding largest soft tissue density is 13.4-mm (transverse). 4. Enhanced FDG distribution is noted in the left and right lobe of the hepatic parenchyma (2.7) to include segments II-III, VII-VIII generating calculated maximal standard uptake value of 12.2 with a lesion to liver background ratio greater than 2.0. The maximal axial diameter of the largest metabolic, morphologic abnormality on review of CT of the abdomen dated 06/19/19 is 31.5-mm (transverse) x 53.1-mm (AP). 5. Enhanced FDG concentration is observed in the right sacrum-sacral ala rendering a calculated maximal standard uptake value of 9.5. Mixed sclerotic-lytic change is noted in the analogous location on review of CT of the pelvis dated 06/19/19. 6. Normal physiologic distribution of the radiopharmaceutical is apparent in the splenic parenchyma, both renal units, bladder and visualized intestinal tract. Symmetric glucose metabolism is evident in the occipital, frontal, parietal and temporal lobes of the cerebral cortex, as well as normal visualization of the basal ganglia and cerebellar hemispheres. Diffuse radiopharmaceutical concentration is noted in all four quadrants of the abdomen and pelvis. Prominent radiopharmaceutical concentration is observed in the left hemipelvis which appears contiguous to the ureter most consistent with physiologic distribution of the radiopharmaceutical. There is visualization of the right-left thyroid colloid of a vaguely u-shaped thyroid gland demonstrating a calculated maximal standard uptake value of 9.1. Pertinent CT findings are as follows: CHEST: There is evidence of an azygos fissure. There are no additional parenchymal densities-nodules defined in the right-left hemithorax demonstrating discernible increased FDG concentration. Atherosclerotic calcification is defined in the thoracic aorta. Coronary arterial calcification is observed. Subcentimeter additional mediastinal and visualized axillary soft tissue densities are ametabolic. ABDOMEN AND PELVIS: Cholelithiasis is defined. Attenuation abnormalities noted in the left and right lobe of the hepatic parenchyma demonstrate facilitated quantitatively significant increased glucose metabolism previously described. There is atherosclerotic calcification defined in the abdominal aorta without evidence of dilatation-aneurysm formation. Pelvic arterial calcification is observed. Dystrophic calcification appears evident within the prostate gland without evidence of facilitated FDG uptake. Bilateral inguinal soft tissue densities with fatty hilus are ametabolic. Colonic diverticulosis is demonstrated without evidence of diverticulitis. Cyst formation appears defined within the right kidney. SKELETAL: The mixed sclerotic-lytic change noted in the right posterior sacrum, sacral ala demonstrates quantitatively significant facilitated FDG uptake. Otherwise, degenerative changes are noted in the cervical, thoracic and lumbar spine. PET/PET/CT Tumor Base -Thigh Init IMPRESSION: 1. ABNORMAL EXAMINATION INDICATIVE OF MALIGNANT VIABLE NEOPLASM. 2. Increased glucose concentration observed in the pharyngeal mucosal space, hypopharynx extending to the right pyriform sinus fulfills quantitative criteria for viable neoplasm. 3. Bilateral anterior and right lateral neck hypermetabolic foci fulfill quantitative criteria for viable metastatic disease. The mediastinal hypermetabolic foci fulfill quantitative criteria for viable neoplasm. 4. Left and right lobe hepatic parenchymal metabolic abnormalities fulfill quantitative criteria for viable hepatic metastasis. 5. Osseous metastatic involvement is defined in the right sacrum and right sacral ala. 6. The increase in FDG concentration noted in the left and right lobe of a u-shaped thyroid gland may be further investigated with thyroid ultrasound if not previously obtained. (Ricky Varma, et al, Journal of Clinical Endocrinology and Metabolism, 88:4100, 2003). Electronic Signature Jf Purvis D.O. Electronically Signed: Jf Purvis DO at 15:01 EST Tel , Service support ,
== END ==
PROVIDERS: Family Provider Family Medicine; PCP Family Medicine; Referring Provider Otolaryngology; Visit Provider Otolaryngology
DX: C02.8 Malignant neoplasm of overlapping sites of tongue (principal)
CPT/HCPCS: 78815; A9552

== ENCOUNTER 2019-07-06 07:17 | Day surgery (SDC) | payer MEDICARE, SELFPAY ==
--- NOTE | 2019-06-29 02:45 | HP_ITS ---
Intake Vital Signs 06/29/19 BMI 21.3 06/29/19 Height 5 ft 11.25 in 06/29/19 Weight: 154 lb 06/29/19 BMI 21.3 06/29/19 BP 116/77 06/29/19 Blood Pressure Location Rt brachial 06/29/19 Position Sitting 06/29/19 Respiration 18 Intake Visit Reasons: Port Placement Consult Chief Complaint: Referred for management of Head and neck cancer. Chemist Required: No Is patient in pain?: No Allergies No Known Allergies Allergy (Verified 06/29/19 13:48) Medications Aspirin E.C. [Ecotrin] 81 mg PO DAILY@0800 06/27/19 [History Confirmed 06/29/19] Levothyroxine [Synthroid] 50 mcg PO DAILY 06/27/19 [History Confirmed 06/29/19] Omeprazole [Prilosec] 20 mg PO DAILY 06/27/19 [History Confirmed 06/29/19] Simvastatin [Zocor] 20 mg PO QHS 06/27/19 [History Confirmed 06/29/19] PFSH Medical History CVA (cerebral vascular accident) (Acute) Hypercholesteremia (Acute) Thyroid dysfunction (Acute) squamous cell (Acute) Surgical History History of laryngoscopy (Acute) Family History Father Colon cancer Brother squamous cell cancer Mother CVA (cerebral vascular accident) Social History (Updated 06/29/19 @ 14:45 by Brad Chacon MD) Smoking Status: Former smoker HPI HPI HPI: NOLBERTO AMAYA, is a 58 M who presents to the office today for HPI HPI Surgical H&P: Yes HPI: NOLBERTO AMAYA, is a 58 M who presents to the office today for port placement. Patient has metastatic base of the tongue cancer and he has undergone a neck dissection as well as radiation. ROS General General: Yes weight change; no fatigue HEENT HEENT: Yes difficulty swallowing Musc Musculoskeletal: Yes back problems and arthritis Cardio Cardiovascular: No murmur, pacemaker, heart disease, atrial fibrillation, high blood pressure, heart attack, heart stent, palpitations, shortness of breat with exertion or chest pain Psych Psychiatric: No depression or anxiety Resp Respiratory: No shortness of breath, No sleep apnea, Yes cough, No COPD, No asthma, No emphysema, No wheezing Gastro Gastrointestinal: No abdominal pain, No nausea or vomiting, No diarrhea, No constipation, No blood in stool, Yes acid reflux, Yes hemorrhoids, No ulcers, No gallbladder problem, No black,tarry stools Matthew Hematologic: No blood thinners Exam Const General: cooperative Orientation: alert, oriented x3 Resp Effort & Inspection: normal respiratory effort Auscultation: clear to auscultation bilaterally Cardio Rate: regular rate Rhythm: regular rhythm Heart Sounds: no murmurs GI Inspection: non-distended Palpation: soft, nontender Assessment & Plan Problems 1. Cancer of overlapping sites of oropharynx C10.8 2. Encounter for adjustment and management of vascular access device Z45.2 Plan Patient is here for port consult. He has metastatic base of the tongue cancer and requires chemotherapy. I discussed port placement with the patient in detail as well as risks including but not limited to bleeding, infection, pneumothorax, DVT, line infection. The patient understands and agrees to proceed. All questions were answered. I would like the patient to continue his aspirin as he has had stroke in the past. Brad Chacon MD Pager: [facility] [address] [place] [address], [address] [place] [address] Office: Coding Level of Care Code Off vis,new,level 3 Diagnoses Cancer of overlapping sites of oropharynx C10.8 Encounter for adjustment and management of vascular access device Z45.2 06/29/19 [id number] <Electronically signed by Brad bang MD> Date _ Brad Chacon MD I have re-examined the patient. There are no clinical changes since date of exam.
[2019-06-29 13:49] VITALS: BMI 21.3
[2019-07-05 13:24] VITALS: BMI 21.6
[2019-07-06] VITALS (7 sets, daily range): BP systolic 86–104; BP diastolic 52–59; PULSE 79–91; RESP 16; TEMP 36.8–36.9; O2SAT 92–98; BMI 21.4
[2019-07-06] MEDS: Lactated Ringers 1,000 ML 100 ML IV (08:05)
[2019-07-06] MEDS: Cefazolin 2 GM in 0.9% Normal Saline 100 ML IV (08:56)
[2019-07-06] MEDS: Bupiv/Epi 0.5% Mpf 30 ML Vial (09:20)
--- NOTE | 2019-07-06 09:42 | OP.PCM_ITS ---
Problem List (1) Encounter for adjustment and management of vascular access device Status: Acute (2) Cancer of overlapping sites of oropharynx Status: Acute Report of Operation Date of Procedure: 07/06/19 Pre-Operative Diagnosis: Need for vascular access port for chemotherapy Post-Operative Diagnosis: Same Surgery/Procedure Performed:: Fluoroscopy and ultrasound-guided right chest port placement utilizing right IJ Description of Procedure: After obtaining informed consent patient was brought back to the operating room MAC anesthesia was induced and the right chest and neck were prepped in normal sterile fashion. Ultrasound was used to evaluate both IJs and the right IJ was selected. Next, using a needle, the right IJ was accessed and a guidewire was passed on into the superior vena cava under fluoroscopy guidance. A small incision was made over the puncture site and the dilator introducer was placed over the guidewire. Next this was capped and the pocket was made for the port. 1% lidocaine with epinephrine was injected in the proposed port site. An incision was made with scalpel. Electrocautery was used to make a pocket under the skin and subcutaneous tissue. Hemostasis was obtained. Next, the catheter was tunneled up to the neck incision site and placed through the introducer. The peel-away introducer was removed and the position of the catheter was confirmed on fluoroscopy. Next, the catheter was trimmed and attached to the port with the locking device. Interrupted 2-0 Vicryl sutures were used to anchor the port to the chest wall and then the port was placed inside the pocket. The pocket was then flushed with saline and the port irrigated with saline. There was good blood return and the port flushed easily. Next, heparin was injected into the port. The skin was closed with subcutaneous interrupted 3-0 Vicryl sutures and interrupted skin 3-0 nylon sutures. A single 3-0 Vicryl sutures placed under the skin at the neck incision site. Steri-Strips were placed as well as op sites. Patient tolerated procedure well, was taken to PACU in stable condition. Chest x-ray will be obtained. Grafts/Implants Used: 8 Citizen Of [place] PowerPort - Admit VTE Documentation VTE Mechan Device Prophylaxis: SCD's
--- NOTE | 2019-07-06 09:42 | RAD_ITS ---
STUDY: X-RAY CHEST REASON FOR EXAM: Male, 58 years old. PORT PLACEMENT TECHNIQUE: Single AP portable view of the chest. COMPARISON: None. FINDINGS: A right-sided portacatheter has been placed. The tip is at the junction of the superior vena cava and right atrium. The lungs are clear and expanded. There is no demonstrated pleural abnormality. Normal size heart. Normal mediastinum and eli. Normal visualized pulmonary arteries. Normal visualized aortic arch and descending thoracic aorta. Normal visualized thoracic spine. Normal visualized ribs, clavicles, and shoulders. There is no demonstrated abnormality of the visualized soft tissue structures of the upper abdomen. RAD/CXR for Line Placement IMPRESSION: The tip of the right-sided portacatheter is at the junction of the superior vena cava and right atrium. Electronically Signed: Sean Small, at 10:05 EST , Service support ,
--- NOTE | 2019-07-06 09:45 | DCINST_ITS ---
Discharge Diet: No Restrictions - Pain medication may cause nausea. You should typically eat light foods as you take your pain medication. Discharge Activity: Return to Normal Activity, May Shower - with your bandage in place in 1-2 days after surgery. DO NOT SHOWER WHEN YOUR PORT IS ACCESSED. Call your doctor if your incision/area has: Continuous Slow Oozing, Sudden Increased Bleeding, Increased Pain/ Swelling, Increased Redness Call your doctor if you observe: Fever of 101 or Higher Remove Dressing in (days):: 3 - When you remove the bandage, leave the steri- strips intact until they fall off. Additional Instructions: Resume Aspirin tomorrow. Allergies/Adverse Reactions: Allergies No Known Allergies Allergy (Verified 07/06/19 07:39) Medications to take at Discharge Aspirin E.C. [Ecotrin] 81 mg PO DAILY@0800 06/27/19 Levothyroxine [Synthroid] 50 mcg PO DAILY 06/27/19 Omeprazole [Prilosec] 20 mg PO DAILY 06/27/19 Simvastatin [Zocor] 20 mg PO QHS 06/27/19 fentaNYL patch [Duragesic Patch] 12 mcg TRANSDERM. Q3D #10 patch 07/05/19 Primary Care Physician: Jaylon Tripp MD [Primary Care Provider] - Test Results: Test results from this visit will be discussed in further detail at your follow- up appointment, if applicable. Please Follow Up With: Brad Chacon MD When: Please call to schedule 2 week follow up appointment. [phone]
== END 2019-07-06 10:54 | disposition home or self-care (01) ==
LOC: SDC 07:17 → AC 07:18
PROVIDERS: Family Provider Family Medicine; PCP Family Medicine; Referring Provider Surgery; Visit Provider Surgery
PROC: (CPT 36561; principal; 2019-07-06 08:45)
DX: Z45.2 Encounter for adjustment and management of vascular access device (principal); C10.8 Malignant neoplasm of overlapping sites of oropharynx; E78.00 Pure hypercholesterolemia, unspecified; K21.9 Gastro-esophageal reflux disease without esophagitis; E06.9 Thyroiditis, unspecified; Z86.73 Personal history of transient ischemic attack (TIA), and cerebral infarction without residual deficits; Z79.82 Long term (current) use of aspirin; Z79.899 Other long term (current) drug therapy; Z87.891 Personal history of nicotine dependence
CPT/HCPCS: 00532; 36561; 71045; 77001; J7120; C1788; J2405

== ENCOUNTER 2019-08-03 20:29 | Inpatient (IN) | payer MEDICARE, SELFPAY ==
[2019-08-03 15:26] VITALS: BMI 22.1
[2019-08-03 20:31] VITALS: BP 136/73; PULSE 127; RESP 18; TEMP 37.3; O2SAT 97; BMI 22.3
--- NOTE | 2019-08-03 20:45 | EKG12_ITS ---
Test Reason : FEVER Blood Pressure : / mmHG Vent. Rate : 117 BPM Atrial Rate : 117 BPM P-R Int : 148 ms QRS Dur : 092 ms QT Int : 312 ms P-R-T Axes : 061 058 047 degrees QTc Int : 435 ms Sinus tachycardia Otherwise normal ECG Confirmed by ABDOUL COLE ([id number]), newspaper photo editor LOLIS JIMENEZ ([id number]) on 08/07/2019 3:42:58 PM Referred By: GUERA Confirmed By:ABDOUL COEL
--- NOTE | 2019-08-03 20:48 | ED.DCSUM_ITS ---
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 He had a Mediport placed 2-3 weeks ago and has had his first dose of chemotherapy that was supposed to be given every 21 days x 3 rounds to begin with before a recheck of PET scan. He went to a routine doctor visit today for basic blood work to look for toxicity of the chemotherapeutic agent. Even though it was not bothering him much, the physician was concerned about infection of the med port. He was sent over to Dr. Chacon, who placed it, he removed it because he agreed it appeared to be infected, and swabbed some cultures of the pocket, which was then loosely sutured and he was placed on doxycycline, he has had 1 dose so far. He was advised to come to the ED if he got worse. Tonight, he feels malaise, fevers, chills, and he did not have the symptoms when he was there. He states he has some soreness in the right side of his neck. Otherwise he has no new symptoms. 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 Denies: Sweats Eyes: Denies: Visual changes - bilaterally, Diplopia ENT: Reports: Bilateral ear pain - intermittent, brief, sharp, Sore throat - chronic due to cancer. Denies: Rhinorrhea Cardiovascular: Denies: Chest pain, Palpitations Respiratory: Reports: Cough - chronic, unchanged. Denies: Dyspnea, Sputum, Dyspnea on exertion Gastrointestinal: Denies: Abdominal pain, Nausea, Vomiting, Diarrhea, Melena, Hematochezia Genitourinary: Denies: Dysuria, Hematuria, Frequency Musculoskeletal: Reports: Neck pain. Denies: Back pain, Swelling, Extremity Pain Skin: Reports: Wounds - right upper chest where medport was removed earlier today. Denies: Rash Neurological: Denies: Headache, Weakness, Numbness Physical Exam Vital Signs/Narrative: Vital Signs Temp Pulse Resp BP Pulse Ox 08/03/19 20:31 99.1 F 127 H 18 136/73 H 97 Inital Vital Signs reviewed: Yes General: Well nourished, Well developed, No Acute Distress Head: Normocephalic, Atraumatic Eyes: Perrl, EOMI, - - left ptosis ENT: Moist mucous membranes, No rhinorrhea Neck: Supple, - - mildly tender right mid-ant neck superficial lymph node; otherwise benign. FROM. supple. Cardiovascular: Regular rate, Regular rhythm, No murmurs, Tachycardia Respiratory: No distress, CTA bilaterally, Diminished - thorughout, symmetrically, Chest tenderness - mild, at right upper medport site Abdomen: Soft, Nontender, Nondistended, Normal bowel sounds Back: Nontender, Normal Inspection Extremities: Nontender, No edema. Negative for: Calf Tenderness Skin: Normal color, No rash, No Trauma, - - right upper chest medport site w/ erythema, one suture in place, slight amount of purulence at lateral aspect of incision. none expressed when palpating the area. no flucutuance or abscess. Neurological: Alert, Oriented x3, Cranial nerves II-XII grossly intact, Normal Sensation, Normal Gait, Weakness - mild, LUE and LLE Psychological: Normal affect, Normal Mood Diagnostic/Tx/Re-eval Laboratory Tests 08/03/19 08/03/19 08/03/19 Range/Units 20:52 20:52 20:52 WBC (4.4-11.0) K/mm3 RBC (4.6-6.2) M/mm3 Hgb (13.0-16.5) g/dL Hct (40-54) % MCV (80-94) fL MCH (27.0-32.0) pg MCHC (32-36) g/dL RDW Std Deviation (35.1-43.9) fl RDW Coeff of [place] (11.6-14.6) % Plt Count (150-450) K/mm3 MPV (6.2-12.0) fl Immature Gran % (Auto) (0.0-0.9) % Neut % (Auto) (47-70) % Lymph % (Auto) (19-41) % [place] % (Auto) (0-10) % Eos % (Auto) (0-5) % Baso % (Auto) (0-1) % Absolute Neuts (auto) (2.0-7.7) X10^3/uL Absolute Lymphs (auto) (0.83-4.51) X10^3/uL Nucleated RBC % (0-5) % Differential Comment Platelet Estimate (ADEQ) RBC Morphology (NORM C&C) NORMAL PT 14.7 (11.7-14.9) SECONDS INR 1.2 APTT 28.9 (24.1-36.2) Seconds Sodium 136 (136-145) mmol/L Potassium 4.4 (3.5-5.1) mmol/L Chloride 101 (98-107) mmol/L Carbon Dioxide 29.0 (21.0-32.0) mmol/L Anion Gap 6 (5-15) BUN 35 H (7-18) mg/dL Creatinine 0.84 (0.70-1.30) mg/dL Estim Creat Clear Calc 96.00 ml/min Est GFR (MDRD) Af Amer 119 (>60) mL/min Est GFR (MDRD) Non-Af 99 (>60) mL/min BUN/Creatinine Ratio 41.6 H (10-20) RATIO Glucose 110 H (74-106) mg/dL Lactic Acid 1.2 (0.4-1.9) mmol/L Calcium 9.3 (8.5-10.1) mg/dL Total Bilirubin 0.20 (0.20-1.00) mg/dL AST 54 H (15-37) U/L ALT 94 H (16-61) U/L Alkaline Phosphatase 224 H (45-117) U/L Total Protein 7.3 (6.4-8.2) g/dL Albumin 3.2 (3.2-5.0) g/dL Globulin 4.1 (2.2-4.2) g/dL Albumin/Globulin Ratio 0.8 L (0.9-2.4) RATIO // Range/Units 20:52 WBC 15.0 H (4.4-11.0) K/mm3 RBC 3.98 L (4.6-6.2) M/mm3 Hgb 11.7 L (13.0-16.5) g/dL Hct 35.8 L (40-54) % MCV 89.9 (80-94) fL MCH 29.4 (27.0-32.0) pg MCHC 32.7 (32-36) g/dL RDW Std Deviation 40.9 (35.1-43.9) fl RDW Coeff of [place] 12.4 (11.6-14.6) % Plt Count 272 (150-450) K/mm3 MPV 9.6 (6.2-12.0) fl Immature Gran % (Auto) 0.700 (0.0-0.9) % Neut % (Auto) 95.5 H (47-70) % Lymph % (Auto) 1.1 L (19-41) % [place] % (Auto) 2.5 (0-10) % Eos % (Auto) 0.1 (0-5) % Baso % (Auto) 0.1 (0-1) % Absolute Neuts (auto) 14.4 H (2.0-7.7) X10^3/uL Absolute Lymphs (auto) 0.17 L (0.83-4.51) X10^3/uL Nucleated RBC % 0 (0-5) % Differential Comment SEE COMMENT Platelet Estimate ADEQUATE (ADEQ) RBC Morphology NORM C+C (NORM C&C) NORMAL PT (11.7-14.9) SECONDS INR APTT (24.1-36.2) Seconds Sodium (136-145) mmol/L Potassium (3.5-5.1) mmol/L Chloride (98-107) mmol/L Carbon Dioxide (21.0-32.0) mmol/L Anion Gap (5-15) BUN (7-18) mg/dL Creatinine (0.70-1.30) mg/dL Estim Creat Clear Calc ml/min Est GFR (MDRD) Af Amer (>60) mL/min Est GFR (MDRD) Non-Af (>60) mL/min BUN/Creatinine Ratio (10-20) RATIO Glucose (74-106) mg/dL Lactic Acid (0.4-1.9) mmol/L Calcium (8.5-10.1) mg/dL Total Bilirubin (0.20-1.00) mg/dL AST (15-37) U/L ALT (16-61) U/L Alkaline Phosphatase (45-117) U/L Total Protein (6.4-8.2) g/dL Albumin (3.2-5.0) g/dL Globulin (2.2-4.2) g/dL Albumin/Globulin Ratio (0.9-2.4) RATIO - Rhythm Strip Rhythm Strip: Sinus Tach Rate: 120 Ectopy: None - EKG Initial EKG Interpretation: No Acute Injury Pattern, Sinus Tachycardia Prior: No Prior - Medical Decision Making Patient was treated with IV fluids and after blood cultures and labs obtained, was given empiric Zosyn. He has a leukocytosis with a leftward shift as above, there are no bands and his lactate is within normal limits. Patient is clinically and hemodynamically stable although he has a persistent resting tachycardia. I do not hear a cardiac murmur, however if he had endocarditis or myocarditis, he could present with a fever and tachycardia out of proportion. His temperature is in the 99 range and should not be causing a tachycardia at 120. Out of concern for bacteremia, plan is for admission and further treatment and evaluation until cultures return. I discussed with Dr. Odom who is covering for Dr. Chacon, she evaluated the patient's medport wound since there is a small amount of purulence at the lateral aspect of it; no further intervention indicated with the wound at this time. Will admit to hospitalist. ED Disposition - Plan for ED Patient: Disposition: Acute Care Hospital [facility] Diagnosis: Sepsis associated with vascular access catheter Referrals: Jaylon Tripp MD [Primary Care Provider] -
--- NOTE | 2019-08-03 20:53 | ED.RN ---
NO OLD EKGS IN MUSE
[2019-08-03 21:03] LABS: Absolute Lymphocyte Count 0.17 X10^3/uL (0.83-4.51); Absolute Neutrophil Count 14.4 X10^3/uL (2.0-7.7); Basophil# 0.02 X10^3/uL; Basophil% 0.1 % (0-1); Eosinophil# 0.01 X10^3/uL; Eosinophils% 0.1 % (0-5); Hematocrit 35.8 % (40-54); Hemoglobin 11.7 g/dL (13.0-16.5); Lymphocyte # 0.17 X10^3/ul (4.0); Lymphocyte % 1.1 % (19-41); Mean Corp Hgb Conc 32.7 g/dL (32-36); Mean Corpuscular Hgb 29.4 pg (27.0-32.0); Mean Corpuscular Volume 89.9 fL (80-94); Mean Platelet Vol. 9.6 fl (6.2-12.0); Monocyte# 0.37 X10^3/uL; Monocyte% 2.5 % (0-10); NRBC Flagged by Analyzer 0 % (0-5); Neutrophil # 14.36 X10^3/uL (2.7-7.7); Neutrophil % 95.5 % (47-70); POSITIVE DIFFERENTIAL YES; Platelet Count 272 K/mm3 (150-450); RBC Distribution Width CV 12.4 % (11.6-14.6); RBC Distribution Width SD 40.9 fl (35.1-43.9); Red Blood Count 3.98 M/mm3 (4.6-6.2)
[2019-08-03 21:06] VITALS: BP 115/67; PULSE 118; RESP 19; O2SAT 94
[2019-08-03] MEDS: 0.9% Normal Saline 1,000 ML 999 ML IV ×2 (21:09→23:00)
[2019-08-03 21:11] LABS: International Normalized Ratio 1.2; Prothrombin Time (Protime)PT. 14.7 SECONDS (11.7-14.9)
[2019-08-03 21:12] LABS: Partial Thromboplast Time 28.9 Seconds (24.1-36.2)
--- NOTE | 2019-08-03 21:14 | RAD_ITS ---
STUDY: X-RAY CHEST REASON FOR EXAM: Male, 58 years old. FEVER, RECENTLY HAD INFECTED PORT AND WAS REMOVED TODAY TECHNIQUE: PA and lateral views of the chest. COMPARISON: 07/06/2019 FINDINGS: There is hyperinflation of the lungs consistent with chronic obstructive lung disease (COPD). Lungs are clear. There is no demonstrated pleural abnormality. Normal size heart. Normal mediastinum and eli. Normal visualized pulmonary arteries. Normal visualized aortic arch and descending thoracic aorta. Normal visualized thoracic spine. Normal visualized ribs, clavicles, and shoulders. There is no demonstrated abnormality of the visualized soft tissue structures of the upper abdomen. RAD/Chest PA and Lateral IMPRESSION: COPD. Lungs are clear. Electronically Signed: Vernon Kapoor DO at 21:57 EST Tel , Service support ,
[2019-08-03 21:18] LABS: ALB/GLOB Ratio 0.8 RATIO (0.9-2.4); AST(SGOT) 54 U/L (15-37); Alanine Aminotransfer ALT/SGPT 94 U/L (16-61); Albumin, Serum 3.2 g/dL (3.2-5.0); Alkaline Phosphatase 224 U/L (45-117); Anion Gap 6 (5-15); BUN 35 mg/dL (7-18); BUN/Creat Ratio 41.6 RATIO (10-20); Calcium,Total 9.3 mg/dL (8.5-10.1); Chloride 101 mmol/L (98-107); Creatinine, Serum 0.84 mg/dL (0.70-1.30); EST Glomerular Filtration Rate 99 mL/min (>60); Est Glom Filt Rate - Afr Amer 119 mL/min (>60); Globulin 4.1 g/dL (2.2-4.2); Glucose 110 mg/dL (74-106); Potassium 4.4 mmol/L (3.5-5.1); Protein, Total 7.3 g/dL (6.4-8.2); Sodium Level 136 mmol/L (136-145)
[2019-08-03 21:25] LABS: Differential Indicated SCAN CRITERIA MET; Lactic Acid 1.2 mmol/L (0.4-1.9)
[2019-08-03 21:28] LABS: Platelet Estimate ADEQUATE (ADEQ); Red Cell Morphology NORM C+C NORMAL (NORM C&C)
[2019-08-03 21:33] VITALS: BP 113/67; PULSE 115; RESP 20; TEMP 37.7; O2SAT 97
[2019-08-03 22:20] LABS: Bacteria 0 SEEN /hpf (None Seen); Mucous, Urine 0 SEEN /hpf (<or=2+); Red Blood Cells-Urine 0 SEEN /hpf (0-5); Squamous Epithelial Cells - UA 0 SEEN /hpf (0-5); White Blood Cells 0 SEEN /hpf (0-5)
[2019-08-03 22:23] LABS: Color, Urine Yellow (Yellow); Glucose, Dipstick Normal (Normal); Ketone-Dipstick Negative (Negative); Leukocyte Esterase-Dipstick Negative /ul (Negative); Nitrite-Dipstick Negative (Negative); Occult Blood-Urine 10 /ul (Negative); Protein-Dipstick Negative (Negative); Urine Bilirubin Dipstick Negative (Negative); Urine Clarity Clear (Clear); Urine Urobilinogen Normal (Normal)
--- NOTE | 2019-08-03 22:26 | HP.PCM_ITS ---
Problem List (1) Sepsis Status: Acute Qualifiers: Sepsis type: sepsis due to unspecified organism Sepsis acute organ dysfunction status: unspecified Qualified Code(s): A41.9 - Sepsis, unspecified organism (2) Infected venous access port Status: Acute Qualifiers: Encounter type: initial encounter Qualified Code(s): T80.219A - Unspecified infection due to central venous catheter, initial encounter (3) Cancer-related pain Status: Chronic (4) Hyperlipidemia Status: Chronic Qualifiers: Hyperlipidemia type: unspecified Qualified Code(s): E78.5 - Hyperlipidemia, unspecified (5) Hypothyroidism Status: Chronic Qualifiers: Hypothyroidism type: unspecified Qualified Code(s): E03.9 - Hypothyroidism, unspecified (6) GERD (gastroesophageal reflux disease) Status: Chronic Qualifiers: Esophagitis presence: esophagitis presence not specified Qualified Code(s): K21.9 - Gastro-esophageal reflux disease without esophagitis (7) Ocular myasthenia gravis Status: Chronic (8) CVA (cerebrovascular accident) Status: Chronic Qualifiers: CVA mechanism: unspecified Qualified Code(s): I63.9 - Cerebral infarction, unspecified Comment: w/ mild residual left hemiparesis (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 ED on 08/03/19 with history of onset of right anterior chest discomfort, erythema and tenderness palpation as well as mild swelling at the site of port insertion worsening over the last 24 hours with chills prompting evaluation per patient surgeon who removed the port, took cultures and referred patient to the ED secondary to acute infection, sepsis and need for abx therapy. Work-up in the ED included T-max 99.9, heart rate 127, BP 136/73, respiratory rate 18, 97% on room air, CBC w/ WBC 15, Hgb 11.7, Plts 272 with L shift, unremarkable coags, CMP w/ BUN/Cr 35/0.84, glucose 110, LA 1.2, AST/ALT 54/94, Alk phos 224, UA pending upon evaluation, Bld Cx x 2, rapid influenza rapid negative, CXR with chronic changes with no acute cardiopulmonary findings. Discussed recent 08/03/19 wound Cx with lab and requested addition of MRSA PCR. Past Medical History Past Medical History (Chronic Problems): Chronic Problems (Last Reviewed 08/03/19 @ 15:27 by Scarlett Oscar) Cancer of overlapping sites of oropharynx (Chronic) Cancer-related pain (Chronic) Hyperlipidemia (Chronic) Hypothyroidism (Chronic) GERD (gastroesophageal reflux disease) (Chronic) Ocular myasthenia gravis (Chronic) CVA (cerebrovascular accident) (Chronic) w/ mild residual left hemiparesis Squamous cell cancer of buccal mucosa (Chronic) Medical History: Medical History (Last Reviewed 08/03/19 @ 15:27 by Scarlett Oscar) CVA (cerebral vascular accident) I63.9 Hypercholesteremia E78.00 Thyroid dysfunction E07.9 squamous cell With neck dissection of lymph nodes and salivary gland, Radiation. 2003 surgery at [facility] Allergies No Known Allergies Allergy (Verified 08/03/19 20:31) Home Medications: Ambulatory Orders Medication Instructions Recorded Aspirin E.C. [Ecotrin] 81 mg PO DAILY@0800 06/27/19 Omeprazole [Prilosec] 20 mg PO DAILY 06/27/19 Simvastatin [Zocor] 20 mg PO QHS 06/27/19 Levothyroxine [Synthroid] 75 mcg PO DAILY 07/17/19 Lidocaine/Prilocaine 1 applicatio TP DAILY PRN PRN 30 07/17/19 [Lidocaine-Prilocaine Cream] Days #1 tube fentaNYL patch [Duragesic Patch] 12 mcg TRANSDERM. Q3D 9 Days #3 08/02/19 patch doxycycline hyclate 100 mg tablet 100 mg PO BID #20 tab 08/03/19 Surgical History: Surgical History (Last Reviewed 08/03/19 @ 15:27 by Scarlett Oscar) History of laryngoscopy Z98.890 06/01/19 Julieta Mathew (Dr Cornelius) Psychiatric History: No pertinent psych hx Lives: With Family - Patient lives with his son and [id number]. Smoking Status: Former smoker - Patient quit cigarette tobacco usage in 2011 with prior to this 1 to 1.5 pack/day cigarette tobacco since he was [age] years old. Tobacco Use: Non-smoker Alcohol: None Drugs: None - *Family History Maternal Family History: Family History (Last Reviewed 08/03/19 @ 15:27 by Scarlett Oscar) Father Colon cancer Brother squamous cell cancer Mother CVA (cerebral vascular accident) History Items: Cancer - Father with history of colon cancer., Stroke Paternal Family History: Family History (Last Reviewed 08/03/19 @ 15:27 by Scarlett Oscar) Father Colon cancer Brother squamous cell cancer Mother CVA (cerebral vascular accident) Review of Systems Constitutional: Reports: Chills, Fever, Malaise, Weakness, Fatigue. Denies: Weight Change HEENT: Denies: Head Aches, Sinus Congestion, Sinus Drainage Cardiovascular: Denies: Chest Pain, Palpitations Respiratory: Denies: Cough, Shortness of breath at rest, Sputum production Gastrointestinal: Denies: Abdominal Pain, Nausea, Vomiting Genitourinary: Denies: Dysuria Musculoskeletal: Reports: Back Pain, Joint Pain. Denies: Joint Tenderness Skin: Reports: Skin Changes, Wounds. Denies: Rash Neurological: Reports: Focal weakness. Denies: Numbness, Tingling Psychiatric: Denies: Anxiety, Depression, Homicidal Ideations, Suicidal Ideations Hematologic/ Lymphatic: Denies: Easy Bruising, Easy Bleeding VTE Information - Inpt Only VTE Present on Admission: No VTE Mechan Device Prophylaxis: SCD's VTE Pharm Prophylaxis ordered?: Yes Patient Problems: Active and Suspected Problems (Last Reviewed 08/03/19 @ 15:27 by Scarlett Oscar) Encounter for education (Acute) Sepsis associated with vascular access catheter (Acute) Sepsis (Acute) Infected venous access port (Acute) Subjective: Seated upright in the ED bed, fatigued appearing, notes feeling improved since initial ED presentation. Objective: Physical Examination: General: awake, alert, oriented x 3 and cooperative, seated upright in the ED bed, fatigued and ill-appearing. Skin: normal color, turgor, no icterus, cyanosis except noted recent right anterior chest port status post removal with suture in place, no ongoing purulent drainage noted, tender to palpation, mild katelyn-incisional region erythema currently or edema. HEENT: AT/NC, EOMI, PERRLA, chronic left eye lid ptosis, moderately dry MM, no carotid bruits or JVD noted. Lungs: CTA bilaterally, moderate effort, moderate decrease BL bases, no rales, ronchi or wheezing. Heart: Tachycardic with regular rhythm; no gallop, rub audible. Abdomen: soft, thin habitus, NTTP, ND, normal BS, no HSM. Extremities: no cyanosis, clubbing, or edema. Neurological: patient awake, alert, oriented x 3; cognitive function appears baseline intact; pupils equally reactive to light and accomodation; cranial nerves II-XII grossly normal, moving all 4 extremities, chronic left-sided weakness status post CVA prior, strength severely global decrease secondary to underlying comorbidities and acute presentation. Psychiatric: affect appears fatigued, ill-appearing, no acute evidence of depressive or anxiety feelings. - Physical Exam Vitals/I&O's: Vital Signs Temp Pulse Resp BP Pulse Ox 99.9 F H 115 H 20 H 113/67 97 08/03/19 21:33 08/03/19 21:33 08/03/19 21:33 08/03/19 21:33 08/03/19 21:33 Oxygen Flow Rate (L/min) 94 Oxygen Delivery Method Room Air Weight: 160 lb Body Mass Index (BMI) 22.3 Intake and Output for Last 24 Hours 08/01/19 08/02/19 08/03/19 23:59 23:59 23:59 Intake Total 50 / 50 Balance 50 / 50 Microbiology Past 72 Hours 08/03/19 20:58 Mucosa - Nose Influenza Types A,B Direct FA (LEANA) - Final Laboratory Results 08/03/19 20:52: WBC 15.0 H, RBC 3.98 L, Hgb 11.7 L, Hct 35.8 L, MCV 89.9, MCH 29.4, MCHC 32.7, RDW Std Deviation 40.9, RDW Coeff of [place] 12.4, Plt Count 272, MPV 9.6, Immature Gran % (Auto) 0.700, Neut % (Auto) 95.5 H, Lymph % (Auto) 1.1 L, [place] % (Auto) 2.5, Eos % (Auto) 0.1, Baso % (Auto) 0.1, Absolute Neuts (auto) 14.4 H, Absolute Lymphs (auto) 0.17 L, Nucleated RBC % 0, Differential Comment S EE COMMENT, Platelet Estimate ADEQUATE, RBC Morphology NORM C+C 08/03/19 20:52: PT 14.7, INR 1.2, APTT 28.9 08/03/19 20:52: Sodium 136, Potassium 4.4, Chloride 101, Carbon Dioxide 29.0, Anion Gap 6, BUN 35 H, Creatinine 0.84, Estim Creat Clear Calc 96.00, Est GFR (MDRD) Af Amer 119, Est GFR (MDRD) Non-Af 99, BUN/Creatinine Ratio 41.6 H, Glucose 110 H, Calcium 9.3, Total Bilirubin 0.20, AST 54 H, ALT 94 H, Alkaline Phosphatase 224 H, Total Protein 7.3, Albumin 3.2, Globulin 4.1, Albumin/Globulin Ratio 0.8 L 08/03/19 20:52: Lactic Acid 1.2 08/03/19 22:11: Urine Color Pending, Urine Clarity Pending, Urine pH Pending, Ur Specific [place] Pending, Urine Protein Pending, Urine Glucose (UA) Pending, Urine Ketones Pending, Urine Occult Blood Pending, Urine Nitrite Pending, Urine Bilirubin Pending, Urine Urobilinogen Pending, Ur Leukocyte Esterase Pending, Urine RBC Pending, Urine WBC Pending, Ur Squamous Epith Cells Pending, Urine Bacteria Pending, Urine Mucus Pending Assessment/Plan All Active Problems (Last Reviewed 08/03/19 @ 15:27 by Scarlett Oscar) Encounter for adjustment and management of vascular access device (Acute) Encounter for education (Acute) Sepsis associated with vascular access catheter (Acute) Sepsis (Acute) Infected venous access port (Acute) The patient is a 58 y/o M w/ PMHx: Hx CVA w/ residual L sided weakness, Former Tobacco use, Myasthenia gravis, Hypothyroidism, GERD, HLD, Chronic pain syndrome w/ chronic fentanyl patch, Former Tobacco use, squamous cell cancer with primary at the base of the tongue with metastatic disease to the right hip, liver as well as lymph with most recent chemotherapy on 07/19/2019 with port placement at that time per report who presents to the [facility] ED on 08/03/19 with history of onset of right anterior chest discomfort, erythema and tenderness palpation as well as mild swelling at the site of port insertion. 1. Acute sepsis secondary to acutely infected right chest port, clear organism: We will admit to the medical surgical floor, maintain on telemetry, given additional 1 L normal saline bolus with continued aggressive IV maintenance fluids following, continue Zosyn with addition of IV vancomycin pending wound cultures, requested addition of wound MRSA PCR with de-escalation of antibiotic therapies as able pending results, general surgery following given recent port resection in their office, repeat CBC, BMP in AM. 2. Metastatic squamous cell cancer: Ongoing chemotherapy, last , magnesium and phosphorus levels requested, noted metastatic disease to the right hip, liver and lymph node with concurrently noted elevated AST/ALT as well as alk phos, possibly associated, repeat CMP in a.m. and if further elevated may need to consider liver ultrasound to further elucidate. Will need [place] replacement once #1 completely resolved. 3. History of CVA: Status post remote CVA, residual left-sided weakness ongoin g, continue aspirin, statin therapy, fall precautions, PT/OT consultations for discharge planning. 4. Ocular myasthenia gravis: Left lid affected more so than right, chronic, stable per discussion with patient. 5. Chronic pain syndrome: We will continue patient fentanyl patch with additional oral and IV breakthrough regimen given acute presentation #1 if necessary. Will maintain on aggressive bowel regimen as patient notes constipation associated. 6. Hypothyroidism: Continue home synthroid regimen. 7. Hyperlipidemia: Continue home statin regimen. 8. GERD: Continue home PPI. 9. CODE status: Patient SERA is his son and living will is currently in place. Discussed CODE status at length including difference between FULL code, DNR-CCA and DNR-CC status. Following discussions about the differences in these status, requested full code. Did discuss that given patient history and significant metastatic cancer resuscitative efforts may yield little benefit with notable trauma to the chest and patient noted understanding. Advanced Care Planning Face to Face Time: 16 minutes. Code Visit Inpatient E&M: 46105 Init Hosp L3 Procedures: 28340 Advncd Care Plan 30 Min
[2019-08-03 22:31] VITALS: BP 124/74; PULSE 114; RESP 20; TEMP 37.6; O2SAT 95
--- NOTE | 2019-08-03 22:56 | PN_ITS ---
Progress Note Patient underwent removal of right chest Port-A-Cath in the office by Dr. Chacon today due to infection. Cultures were taken at that time. The port site was irrigated and only one suture was placed to allow this area to drain. Patient was sent home with doxycycline. Patient did have a fever of 103 today and came to the ER. Right chest site?previous port site, [address], no purulent drainage only irrigation fluid--slightly red-tinged. No need for further irrigation or opening of the wound currently. Patient be admitted to medicine for IV antibiotics. We will continue to follow. Renee Odom M.D. Pager: [phone] [facility] [address] [place] [address], [facility], [address] [place] [address] Office: [phone] STROKE Vital Signs/Narrative: Vital Signs Temp Pulse Resp BP Pulse Ox 08/03/19 22:31 99.7 F H 114 H 20 H 124/74 H 95 08/03/19 21:33 99.9 F H 115 H 20 H 113/67 97 08/03/19 21:06 118 H 19 H 115/67 94 08/03/19 20:31 99.1 F 127 H 18 136/73 H 97
[2019-08-03 23:30] VITALS: BP 99/61; PULSE 113; RESP 16; TEMP 38.5; O2SAT 96
[2019-08-03] MEDS: Acetaminophen 500 MG Tablet 1000 MG PO (23:43)
[2019-08-04] VITALS (11 sets, daily range): BP systolic 87–152; BP diastolic 54–81; PULSE 64–107; RESP 16–20; TEMP 36.7–38.7; O2SAT 92–96; BMI 22.3; BMI 22.4
[2019-08-04 00:32] LABS: Phosphorus 3.2 mg/dL (2.5-4.9)
[2019-08-04] MEDS: 0.9% Normal Saline 1,000 ML 999 ML IV ×2 (00:35→01:41)
--- NOTE | 2019-08-04 01:13 | PCM.RX.CS ---
Consult Pharmacy has been consulted to manage selected antiobiotic: Vancomycin Type of Consult: New start Suspected Infection: Sepsis Labs: Sodium 136 mmol/L (136-145) 08/03/19 20:52 Potassium 4.4 mmol/L (3.5-5.1) 08/03/19 20:52 Chloride 101 mmol/L (98-107) 08/03/19 20:52 Carbon Dioxide 29.0 mmol/L (21.0-32.0) 08/03/19 20:52 Anion Gap 6 (5-15) 08/03/19 20:52 BUN 35 mg/dL (7-18) H 08/03/19 20:52 Creatinine 0.84 mg/dL (0.70-1.30) 08/03/19 20:52 Est GFR (MDRD) Af Amer 119 mL/min (>60) 08/03/19 20:52 Est GFR (MDRD) Non-Af 99 mL/min (>60) 08/03/19 20:52 BUN/Creatinine Ratio 41.6 RATIO (10-20) H 08/03/19 20:52 Glucose 110 mg/dL (74-106) H 08/03/19 20:52 Microbiology: Microbiology 08/03/19 20:58 Mucosa - Nose Influenza Types A,B Direct FA (LEANA) - Final Weight used for dosin.7 kg Estimated Creatinine Clearance: 96.16 Goal Trough: 15-20 mcg/mL Pharmacy Plan for Drug Dosing: Pharmacy Service will continue to monitor and adjust dosing as required. Medications Vancomycin HCl 1,750 mg/ (Sodium Chloride) 535 mls @ 250 mls/hr IV X1 ONE Stop: 08/04/19 02:38 Last Admin: 08/04/19 00:47 Dose: 250 mls/hr Documented by: Vancomycin HCl 1,500 mg/ (Sodium Chloride) 530 mls @ 250 mls/hr IV Q12H [facility] Follow-Up Labs: Trough Vancomycin Labs to be done on [date and time ordered]: 08/05 @ 1235
[2019-08-04] MEDS: 0.9% Normal Saline 1,000 ML 125 ML IV ×3 (02:47→21:29)
[2019-08-04 03:02] LABS: M R Staph aureus DNA By PCR Negative (Negative); Probe Check PASS; Specimen Processing Control PASS; Staph aureus DNA By PCR POSITIVE (Negative)
[2019-08-04] MEDS: Levothyroxine 75 MCG Tablet PO (05:14)
[2019-08-04 05:44] LABS: Absolute Lymphocyte Count 0.19 X10^3/uL (0.83-4.51); Absolute Neutrophil Count 7.2 X10^3/uL (2.0-7.7); Basophil# 0.02 X10^3/uL; Basophil% 0.3 % (0-1); Hematocrit 33.1 % (40-54); Hemoglobin 10.4 g/dL (13.0-16.5); Lymphocyte # 0.19 X10^3/ul (4.0); Lymphocyte % 2.5 % (19-41); Mean Corp Hgb Conc 31.4 g/dL (32-36); Mean Corpuscular Hgb 28.4 pg (27.0-32.0); Mean Corpuscular Volume 90.4 fL (80-94); Mean Platelet Vol. 9.6 fl (6.2-12.0); Monocyte# 0.21 X10^3/uL; Monocyte% 2.7 % (0-10); NRBC Flagged by Analyzer 0 % (0-5); Neutrophil # 7.23 X10^3/uL (2.7-7.7); Neutrophil % 93.9 % (47-70); POSITIVE DIFFERENTIAL YES; Platelet Count 221 K/mm3 (150-450); RBC Distribution Width CV 12.7 % (11.6-14.6); RBC Distribution Width SD 41.8 fl (35.1-43.9); Red Blood Count 3.66 M/mm3 (4.6-6.2); White Blood Count 7.7 K/mm3 (4.4-11.0)
[2019-08-04 05:45] LABS: Differential Indicated SCAN CRITERIA MET
[2019-08-04 06:09] LABS: ALB/GLOB Ratio 0.7 RATIO (0.9-2.4); AST(SGOT) 43 U/L (15-37); Alanine Aminotransfer ALT/SGPT 76 U/L (16-61); Albumin, Serum 2.6 g/dL (3.2-5.0); Alkaline Phosphatase 187 U/L (45-117); Anion Gap 7 (5-15); BUN 23 mg/dL (7-18); BUN/Creat Ratio 46.2 RATIO (10-20); Chloride 106 mmol/L (98-107); EST Glomerular Filtration Rate 181 mL/min (>60); Est Glom Filt Rate - Afr Amer 218 mL/min (>60); Estimated Creatinine Clearance 161.56 ml/min; Globulin 3.5 g/dL (2.2-4.2); Glucose 102 mg/dL (74-106); Potassium 3.8 mmol/L (3.5-5.1); Protein, Total 6.1 g/dL (6.4-8.2); Sodium Level 136 mmol/L (136-145)
[2019-08-04 06:11] LABS: Platelet Estimate ADEQUATE (ADEQ); Red Cell Morphology NORM C+C NORMAL (NORM C&C)
[2019-08-04] MEDS: Acetaminophen 325 MG Tablet 650 MG PO ×3 (07:59→20:46)
[2019-08-04] MEDS: Aspirin E.C. 81 MG Tablet PO (08:00)
[2019-08-04] MEDS: Pantoprazole Sodium 20 MG Tablet PO (08:00)
--- NOTE | 2019-08-04 11:30 | CASEMGMT ---
RN CM Face to Face with patient for initial transition planning/care coordination assessment. RN CM introduced self and role at [facility]. Patient lying in bed, alert and oriented, family at bedside. Patient willing to participate in assessment and is able to answer all questions appropriately. Care providers, pharmacy, and demographics verified. Patient wishes to discharge home, denies need for home health at this time. Patient states he has no further needs or concerns at this time. CM to follow for discharge planning needs that may arise. PCP: Qasim Specialists: Katiana, oncologist; Oswaldo, surgeon Preferred Pharmacy: [facility] Insurance: [facility] Prescription Benefit: yes Living Will/HPOA: yes, son Neal Carlisle LNOK: son Living Arrangements: Patient lives with son in finished basement. Patient states he is able to ambulate stairs and independent at home. Transportation: self, son DME/HHC: Patient denies DME or HHC. Disposition Plan: Patient to discharge home with family support and follow-up plans in place. Will monitor for need for IV ATB and HHC pending blood cultures and ID. Mona PANG, RN, CM
[2019-08-04] MEDS: Cefazolin 2 GM in 0.9% Normal Saline 100 ML IV ×2 (13:51→21:23)
--- NOTE | 2019-08-04 14:06 | PCM.HP.ID ---
Problem List (1) Infected venous access port Status: Acute Qualifiers: Encounter type: initial encounter Qualified Code(s): T80.219A - Unspecified infection due to central venous catheter, initial encounter Reason for Consult: port infection Consulted by: Dr. Clemente History of Present Illness: The patient is a 58 year old M with metastatic tongue SCC. Had port placed 3-4 weeks ago, started on keytruda at end of June. Feeling ok, but had several days of increased R chest port swelling, redness. No drainage. Developed fever and chills 08/02. Saw Dr. Chacon 08/03 and had port removed with some purulence seen. Given doxy, took one dose, had fever again last night, came to ED, admitted on vanc/zosyn. Feeling ok, no fever today. No new joint/back pain. Full ROS performed and neg except as noted above. 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 [Ecotrin] 81 mg PO DAILY@0800 06/27/19 Omeprazole [Prilosec] 20 mg PO DAILY 06/27/19 Simvastatin [Zocor] 20 mg PO QHS 06/27/19 Levothyroxine [Synthroid] 75 mcg PO DAILY 07/17/19 Lidocaine/Prilocaine 1 applicatio TP DAILY PRN PRN 30 07/17/19 [Lidocaine-Prilocaine Cream] Days #1 tube fentaNYL patch [Duragesic Patch] 12 mcg TRANSDERM. Q3D 9 Days #3 08/02/19 patch doxycycline hyclate 100 mg tablet 100 mg PO BID #20 tab 08/03/19 - Social History SMOKING STATUS:: Former smoker Vital Signs Temp Pulse Resp BP Pulse Ox 98.4 F 87 16 101/65 93 08/04/19 13:23 08/04/19 13:23 08/04/19 13:23 08/04/19 13:23 08/04/19 13:23 Oxygen Flow Rate (L/min) 94 Oxygen Delivery Method Room Air Weight: 72.7 kg Body Mass Index (BMI) 22.3 Microbiology Past 72 Hours 08/03/19 20:58 Influenza Types A,B Direct FA (LEANA) - Final Mucosa - Nose Laboratory Tests Past 24 Hrs 08/03/19 08/03/19 08/03/19 20:52 20:52 20:52 WBC 15.0 H RBC 3.98 L Hgb 11.7 L Hct 35.8 L MCV 89.9 MCH 29.4 MCHC 32.7 RDW Std Deviation 40.9 RDW Coeff of [place] 12.4 Plt Count 272 MPV 9.6 Immature Gran % (Auto) 0.700 Neut % (Auto) 95.5 H Lymph % (Auto) 1.1 L [place] % (Auto) 2.5 Eos % (Auto) 0.1 Baso % (Auto) 0.1 Absolute Neuts (auto) 14.4 H Absolute Lymphs (auto) 0.17 L Nucleated RBC % 0 Differential Comment SEE COMMENT Platelet Estimate ADEQUATE RBC Morphology NORM C+C PT 14.7 INR 1.2 APTT 28.9 Sodium 136 Potassium 4.4 Chloride 101 Carbon Dioxide 29.0 Anion Gap 6 BUN 35 H Creatinine 0.84 Estim Creat Clear Calc 96.00 Est GFR (MDRD) Af Amer 119 Est GFR (MDRD) Non-Af 99 BUN/Creatinine Ratio 41.6 H Glucose 110 H Lactic Acid Calcium 9.3 Phosphorus Magnesium Total Bilirubin 0.20 AST 54 H ALT 94 H Alkaline Phosphatase 224 H Total Protein 7.3 Albumin 3.2 Globulin 4.1 Albumin/Globulin Ratio 0.8 L Urine Color Urine Clarity Urine pH Ur Specific [place] Urine Protein Urine Glucose (UA) Urine Ketones Urine Occult Blood Urine Nitrite Urine Bilirubin Urine Urobilinogen Ur Leukocyte Esterase Urine RBC Urine WBC Ur Squamous Epith Cells Urine Bacteria Urine Mucus S.aureus Protein A PCR MRSA (PCR) 08/03/19 08/03/19 08/03/19 20:52 20:52 22:11 WBC RBC Hgb Hct MCV MCH MCHC RDW Std Deviation RDW Coeff of [place] Plt Count MPV Immature Gran % (Auto) Neut % (Auto) Lymph % (Auto) [place] % (Auto) Eos % (Auto) Baso % (Auto) Absolute Neuts (auto) Absolute Lymphs (auto) Nucleated RBC % Differential Comment Platelet Estimate RBC Morphology PT INR APTT Sodium Potassium Chloride Carbon Dioxide Anion Gap BUN Creatinine Estim Creat Clear Calc Est GFR (MDRD) Af Amer Est GFR (MDRD) Non-Af BUN/Creatinine Ratio Glucose Lactic Acid 1.2 Calcium Phosphorus 3.2 Magnesium 2.0 Total Bilirubin AST ALT Alkaline Phosphatase Total Protein Albumin Globulin Albumin/Globulin Ratio Urine Color Yellow Urine Clarity Clear Urine pH 7.0 Ur Specific [place] 1.010 Urine Protein Negative Urine Glucose (UA) Normal Urine Ketones Negative Urine Occult Blood 10 H Urine Nitrite Negative Urine Bilirubin Negative Urine Urobilinogen Normal Ur Leukocyte Esterase Negative Urine RBC 0 SEEN Urine WBC 0 SEEN Ur Squamous Epith Cells 0 SEEN Urine Bacteria 0 SEEN Urine Mucus 0 SEEN S.aureus Protein A PCR MRSA (PCR) 08/04/19 08/04/19 08/04/19 01:05 05:20 05:20 WBC 7.7 RBC 3.66 L Hgb 10.4 L Hct 33.1 L MCV 90.4 MCH 28.4 MCHC 31.4 L RDW Std Deviation 41.8 RDW Coeff of [place] 12.7 Plt Count 221 MPV 9.6 Immature Gran % (Auto) 0.600 Neut % (Auto) 93.9 H Lymph % (Auto) 2.5 L [place] % (Auto) 2.7 Eos % (Auto) 0.0 Baso % (Auto) 0.3 Absolute Neuts (auto) 7.2 Absolute Lymphs (auto) 0.19 L Nucleated RBC % 0 Differential Comment COMMENT Platelet Estimate ADEQUATE RBC Morphology NORM C+C PT INR APTT Sodium 136 Potassium 3.8 Chloride 106 Carbon Dioxide 23.0 Anion Gap 7 BUN 23 H Creatinine 0.50 L Estim Creat Clear Calc 161.56 Est GFR (MDRD) Af Amer 218 Est GFR (MDRD) Non-Af 181 BUN/Creatinine Ratio 46.2 H Glucose 102 Lactic Acid Calcium 8.0 L Phosphorus Magnesium Total Bilirubin 0.40 AST 43 H ALT 76 H Alkaline Phosphatase 187 H Total Protein 6.1 L Albumin 2.6 L Globulin 3.5 Albumin/Globulin Ratio 0.7 L Urine Color Urine Clarity Urine pH Ur Specific [place] Urine Protein Urine Glucose (UA) Urine Ketones Urine Occult Blood Urine Nitrite Urine Bilirubin Urine Urobilinogen Ur Leukocyte Esterase Urine RBC Urine WBC Ur Squamous Epith Cells Urine Bacteria Urine Mucus S.aureus Protein A PCR POSITIVE H MRSA (PCR) Negative - Other Studies Radiology: [] reviewed Other Studies: [] Route of nutrition/ use of supplements: [] Nutritional Intake: [] IV Site: [] [place] Catheter: [] - Physical Exam General: Alert, Oriented x3, Cooperative, No apparent distress HEENT: Atraumatic, PERRLA, EOMI Neck: Supple, No Nodes Lungs: Rhonchi, Wheezes Cardiovascular: Regular rate, Regular Rhythm Abdomen: Soft, Non Tender, Non-Distended Extremities: No edema Skin: Ulcer/ Wound - R chest former port site, no drainage, no tenderness, - - no splinter hemorrhages on hands or feet IV Site: Peripheral, without redness Musculoskeletal: No Tenderness to Palpation of Joints or Extremities Neurological: Cranial nerves II-XII grossly intact - Assessment/Plan Antibiotics: [] Assessment/Plan: [] Active and Suspected Problems (Last Reviewed 08/03/19 @ 15:27 by Scarlett Oscar) Encounter for education (Acute) Sepsis associated with vascular access catheter (Acute) Sepsis (Acute) Infected venous access port (Acute) R chest mssa port infection - removed by Dr. Chacon 08/03. Recent chemotherapy. Presented with sepsis, bcx neg so far. On vanc/zosyn, will narrow to vanc/cefazolin. If bcx neg, plan will be for po abx at discharge for 7 day course. If bcx are (+), will need to stay on iv abx, get repeat bcx, echo. Will follow, thank you. D/w medical case manager.
--- NOTE | 2019-08-04 15:39 | ECHOD_ITS ---
Reason For Study: Bacteremia Procedure This was a 2D Doppler, Color Flow transthoracic echocardiogram. Exam performed portable in patient room. Left Ventricle Normal size and thickness. The estimated ejection fraction is 65 %. Stage 1 diastolic dysfunction. No regional wall motion abnormalities noted. Right Ventricle Normal size and thickness. Normal systolic function. Atria Normal left atrium. Normal right atrium. Normal atrial septum. Mitral Valve The mitral valve is structurally normal. No prolapse or stenosis seen. Tricuspid Valve Normal tricuspid valve. Trivial tricuspid valve insufficiency. Right ventricular systolic pressure estimated to be 29 mmHg. Aortic Valve Trisinus/trileaflet aortic valve. Normal aortic valve. Pulmonic Valve Normal pulmonic valve. Great Vessels Normal aortic root. Normal arch. Normal inferior vena cava. Inferior vena cava collapse with sniff. Pericardium/Pleural Trivial pericardial effusion. There are no echocardiographic indications of cardiac tamponade. MMode/2D Measurements & Calculations LVIDd: 4.9 cm IVSd: 0.77 cm Ao root diam: 3.1 cm LVIDs: 3.1 cm LVPWd: 0.99 cm RVDd: 3.1 cm FS: 36.1 % LAV(MOD-bp): 44.2 ml LA A4 area: 19.1 cm2 RA A4 area: 16.2 cm2 LAV(MOD-bp) Indexed: 23.1 ml/m2 LAV(MOD-sp2): 34.0 ml LAV(MOD-sp4): 56.4 ml Doppler Measurements & Calculations MV E max nemesio: 74.1 cm/sec Lat Peak E' Nemesio: 11.6 cm/sec Med Peak E' Nemesio: 10.8 cm/sec MV A max nemesio: 85.4 cm/sec E/E' lat: 6.4 E/E' med: 6.9 MV E/A: 0.87 Ao V2 max: 132.0 cm/sec LV V1 max: 108.3 cm/sec PA V2 max: 86.5 cm/sec Ao max P.0 mmHg LV V1 max P.7 mmHg TR max nemesio: 242.5 cm/sec TR max P.5 mmHg Interpretation Summary The estimated ejection fraction is 65 %. Stage 1 diastolic dysfunction. Trivial tricuspid valve insufficiency. Right ventricular systolic pressure estimated to be 29 mmHg. Trivial pericardial effusion. There are no echocardiographic indications of cardiac tamponade. No overt evidence of valvular bacterial vegetation. There is no comparison study available. Ordering Physician: Jamir Zamarripa Referring Physician: Jaylon Tripp Performed By: Lydia Shine RDCS
--- NOTE | 2019-08-04 16:00 | PCM.PROGNOTE ---
Patient Problems: Active and Suspected Problems (Last Reviewed 08/03/19 @ 15:27 by Scarlett Oscar) Encounter for education (Acute) Sepsis associated with vascular access catheter (Acute) Sepsis (Acute) Infected venous access port (Acute) Subjective: Patient was seen and examined today, late this afternoon his blood culture resulted positive with gram-positive cocci. I talked with infectious diseases who saw the patient earlier today, they requested repeat blood culture today on the patient and a transthoracic echocardiogram be performed. They also requested that repeat blood cultures be drawn tomorrow also. His white blood cell count today is normal. Patient's T-max today was 101.7 just after midnight. Patient denies any chills or fever at this time. - Physical Exam Vitals/I&O's: Vital Signs Temp Pulse Resp BP Pulse Ox 98.4 F 102 H 16 101/65 93 08/04/19 13:23 08/04/19 14:38 08/04/19 13:23 08/04/19 13:23 08/04/19 13:23 Oxygen Flow Rate (L/min) 94 Oxygen Delivery Method Room Air Weight: 72.7 kg Body Mass Index (BMI) 22.3 Intake and Output for Last 24 Hours 08/02/19 08/03/19 08/04/19 23:59 23:59 23:59 Intake Total 1050 / 1050 5095.00 / 5095.00 Output Total 200 / 200 Balance 1050 / 1050 4895.00 / 4895.00 General: Alert, Oriented x3, Cooperative HEENT: Atraumatic, PERRLA, EOMI, Normocephalic Oral: Moist Mucosa Neck: Supple, No JVD, No Nuchal Rigidity, Trachea Midline Lungs: Clear to auscultation, Normal air movement, No rhonchi, No wheeze Cardiovascular: Regular rate, No murmurs Abdomen: Bowel Sounds Present, Soft, Non Tender, Non-Distended, No hernias noted Extremities: No clubbing, No cyanosis, No edema, Capillary Refill Less than 3 Seconds Skin: No rashes Musculoskeletal: No Tenderness to Palpation of Joints or Extremities Neurological: Cranial nerves II-XII grossly intact, Neuro grossly intact, Sensory exam intact to light touch and pain Psych/Mental Status: Normal Affect, Appropriate, Alert and oriented to time, place, person, mood and affect Microbiology Past 72 Hours 08/03/19 21:07 Blood Culture (Wb) - Venous Blood Culture - Preliminary 08/03/19 20:58 Mucosa - Nose Influenza Types A,B Direct FA (LEANA) - Final Laboratory Results 08/03/19 20:52: WBC 15.0 H, RBC 3.98 L, Hgb 11.7 L, Hct 35.8 L, MCV 89.9, MCH 29.4, MCHC 32.7, RDW Std Deviation 40.9, RDW Coeff of [place] 12.4, Plt Count 272, MPV 9.6, Immature Gran % (Auto) 0.700, Neut % (Auto) 95.5 H, Lymph % (Auto) 1.1 L, [place] % (Auto) 2.5, Eos % (Auto) 0.1, Baso % (Auto) 0.1, Absolute Neuts (auto) 14.4 H, Absolute Lymphs (auto) 0.17 L, Nucleated RBC % 0, Differential Comment SEE COMMENT, Platelet Estimate ADEQUATE, RBC Morphology NORM C+C 08/03/19 20:52: PT 14.7, INR 1.2, APTT 28.9 08/03/19 20:52: Sodium 136, Potassium 4.4, Chloride 101, Carbon Dioxide 29.0, Anion Gap 6, BUN 35 H, Creatinine 0.84, Estim Creat Clear Calc 96.00, Est GFR (MDRD) Af Amer 119, Est GFR (MDRD) Non-Af 99, BUN/Creatinine Ratio 41.6 H, Glucose 110 H, Calcium 9.3, Total Bilirubin 0.20, AST 54 H, ALT 94 H, Alkaline Phosphatase 224 H, Total Protein 7.3, Albumin 3.2, Globulin 4.1, Albumin/Globulin Ratio 0.8 L 08/03/19 20:52: Lactic Acid 1.2 08/03/19 20:52: Phosphorus 3.2, Magnesium 2.0 08/03/19 22:11: Urine Color Yellow, Urine Clarity Clear, Urine pH 7.0, Ur Specific [place] 1.010, Urine Protein Negative, Urine Glucose (UA) Normal, Urine Ketones Negative, Urine Occult Blood 10 H, Urine Nitrite Negative, Urine Bilirubin Negative, Urine Urobilinogen Normal, Ur Leukocyte Esterase Negative, Urine RBC 0 SEEN, Urine WBC 0 SEEN, Ur Squamous Epith Cells 0 SEEN, Urine Bacteria 0 SEEN, Urine Mucus 0 SEEN 08/04/19 01:05: S.aureus Protein A PCR POSITIVE H, MRSA (PCR) Negative 08/04/19 05:20: WBC 7.7, RBC 3.66 L, Hgb 10.4 L, Hct 33.1 L, MCV 90.4, MCH 28.4, MCHC 31.4 L, RDW Std Deviation 41.8, RDW Coeff of [place] 12.7, Plt Count 221, MPV 9.6, Immature Gran % (Auto) 0.600, Neut % (Auto) 93.9 H, Lymph % (Auto) 2.5 L, [place] % (Auto) 2.7, Eos % (Auto) 0.0, Baso % (Auto) 0.3, Absolute Neuts (auto) 7.2, Absolute Lymphs (auto) 0.19 L, Nucleated RBC % 0, Differential Comment COMMENT, Platelet Estimate ADEQUATE, RBC Morphology NORM C+C 08/04/19 05:20: Sodium 136, Potassium 3.8, Chloride 106, Carbon Dioxide 23.0, Anion Gap 7, BUN 23 H, Creatinine 0.50 L, Estim Creat Clear Calc 161.56, Est GFR (MDRD) Af Amer 218, Est GFR (MDRD) Non-Af 181, BUN/Creatinine Ratio 46.2 H, Glucose 102, Calcium 8.0 L, Total Bilirubin 0.40, AST 43 H, ALT 76 H, Alkaline Phosphatase 187 H, Total Protein 6.1 L, Albumin 2.6 L, Globulin 3.5, Albumin/Globulin Ratio 0.7 L Current Medications Acetaminophen (Tylenol) 650 mg PO Q6H PRN PRN PRN Reason: Pain Score 1-10/Temp > 100.7 F Last Admin: 08/04/19 13:51 Dose: 650 mg Documented by: Al Hydroxide/Mg Hydroxide (Mylanta Ii) 30 ml PO Q6H PRN PRN PRN Reason: Gastric Burning Albuterol Sulfate (Ventolin Aerosols) 2.5 mg INHALATION Q2H PRN PRN PRN Reason: Shortness of Breath/Wheezing Aspirin (Ecotrin) 81 mg PO DAILY@0800 [facility] Last Admin: 08/04/19 08:00 Dose: 81 mg Documented by: Atorvastatin Calcium (Lipitor) 10 mg PO QHS [facility] Fentanyl (Duragesic Patch) 12 mcg TRANSDERM. Q3D [facility] Glucagon () 1 mg IM .X1 PRN PRN Reason: Hypoglycemia Guaifenesin (Robitussin) 20 ml PO Q4H PRN PRN PRN Reason: COUGH Hydralazine HCl (Apresoline Iv) 10 mg IV Q4H PRN PRN PRN Reason: SBP > 160 Sodium Chloride () 1,000 mls @ 125 mls/hr IV .Q8H [facility] Last Admin: 08/04/19 11:06 Dose: 125 mls/hr Documented by: Vancomycin IV Pharmacy to Dose (1 ea/ Sodium Chloride) 500 mls @ 250 mls/hr IV X1 PRN; Protocol PRN Reason: Rx to Dose Dextrose (Dextrose 10%-Water) 250 mls @ 999 mls/hr IV .Q16M PRN; Protocol PRN Reason: HYPOGLYCEMIA Sodium Chloride () 250 mls @ 15 mls/hr IV .[id number] PRN PRN Reason: Saline Flush Sodium Chloride () 250 mls @ 15 mls/hr IV .[id number] PRN PRN Reason: Additional IVPB Infusion Vancomycin HCl 1,500 mg/ (Sodium Chloride) 530 mls @ 250 mls/hr IV Q12H [facility] Last Admin: 08/04/19 13:28 Dose: 250 mls/hr Documented by: Cefazolin Sodium 2 gm/ Sodium (Chloride) 110 mls @ 150 mls/hr IV Q8 [facility] Last Infusion: 08/04/19 14:35 Dose: Infused Documented by: Levothyroxine Sodium (Synthroid) 75 mcg PO DAILY@0600 [facility] Last Admin: 08/04/19 05:14 Dose: 75 mcg Documented by: Magnesium Hydroxide (Milk Of Magnesia) 30 ml PO DAILY PRN PRN PRN Reason: Constipation Melatonin (Melatonin) 3 mg PO QHS PRN PRN PRN Reason: INSOMNIA Morphine Sulfate () 2 mg IV Q3H PRN PRN PRN Reason: Pain Score 6-10/10 Ondansetron HCl (Zofran) 4 mg IV Q8H PRN PRN PRN Reason: NAUSEA/VOMITING Oxycodone HCl (Oxyir) 5 mg PO Q4H PRN PRN PRN Reason: Pain Score 4-5/10 Pantoprazole Sodium (Protonix) 20 mg PO DAILY [facility] Last Admin: 08/04/19 08:00 Dose: 20 mg Documented by: Prochlorperazine Edisylate (Compazine Iv) 5 mg IV Q4H PRN PRN PRN Reason: Breakthrough nausea/vomiting Psyllium Hydrophilic Mucilloid (Metamucil) 1 packet PO DAILY PRN PRN PRN Reason: Constipation Senna/Docusate Sodium (Senokot-S, Myra-Colace) 2 tablet PO BID PRN PRN PRN Reason: Constipation Sodium Chloride () 10 - 40 ml IV UD PRN PRN Reason: SALINE FLUSH Throat Lozenges (Cepacol Sore Throat Lozenge) 1 lozenge MUCOUS MEM Q2H PRN PRN PRN Reason: SORE THROAT Medical Necessity - Tobacco Use Smoking Status: Former smoker Tobacco Use: Non-smoker Assessment/Plan All Active Problems (Last Reviewed 08/03/19 @ 15:27 by Scarlett Oscar) Encounter for adjustment and management of vascular access device (Acute) Encounter for education (Acute) Sepsis associated with vascular access catheter (Acute) Sepsis (Acute) Infected venous access port (Acute) #1 acute sepsis secondary to infected Mediport with methicillin sensitive staph aureus-status post removal of Mediport postop day #1-factious diseases changed today patient's antibiotic coverage to vancomycin and Ancef, patient will have an echocardiogram performed tomorrow, blood cultures were ordered again today and will be ordered again tomorrow. #2 squamous cell cancer of the buccal mucosa #3 hyperlipidemia #4 cerebrovascular disease Code Visit Inpatient E&M: 40942 Subs Hosp L2
[2019-08-04] MEDS: MELATONIN 3 MG TABLET PO (21:21)
[2019-08-04] MEDS: Atorvastatin Calcium 10 MG Tablet PO (21:21)
[2019-08-05] VITALS (8 sets, daily range): BP systolic 114–146; BP diastolic 72–94; PULSE 83–104; RESP 18–20; TEMP 36.8–37.1; O2SAT 95–98
[2019-08-05] MEDS: oxyCODONE 5 MG Tablet PO (02:20)
[2019-08-05] MEDS: BENZOCAINE/MENTHOL 1 LOZENGE MUCOUS MEM (02:20)
[2019-08-05] MEDS: 0.9% Normal Saline 1,000 ML 125 ML IV ×2 (05:31→15:15)
[2019-08-05] MEDS: Levothyroxine 75 MCG Tablet PO (05:32)
[2019-08-05] MEDS: Cefazolin 2 GM in 0.9% Normal Saline 100 ML IV ×3 (05:32→22:42)
--- NOTE | 2019-08-05 07:45 | NURSING ---
Patient requested clarification on diet order. Notified that he is on a pureed cardiac/low cholesterol diet with nectar thick liquids. Patient stating he cannot tolerate the puree foods and cannot swallow them due to lack of saliva. States he needs regular consistency foods. This RN looked up Speech Therapy evaluation documentation from 08/04 0900. Read recommendations to patient. He still is refusing the puree foods and stated he will call his sister to bring him in some breakfast. Reinforced the importance to follow recommended diet and risks if not followed but patient still refusing.
[2019-08-05] MEDS: Aspirin E.C. 81 MG Tablet PO (08:08)
[2019-08-05] MEDS: Pantoprazole Sodium 20 MG Tablet PO (08:08)
[2019-08-05 13:37] LABS: Vancomycin, Trough Level 6.2 ug/mL (5.0-15.0)
--- NOTE | 2019-08-05 14:08 | PCM.RX.CS ---
Consult Pharmacy has been consulted to manage selected antiobiotic: Vancomycin Type of Consult: Follow-up Suspected Infection: Sepsis Prior Doses of Antibiotics Received/Current Regimen: Currently on 1500mg iv q12h. Labs: Sodium 136 mmol/L (136-145) 08/04/19 05:20 Potassium 3.8 mmol/L (3.5-5.1) 08/04/19 05:20 Chloride 106 mmol/L (98-107) 08/04/19 05:20 Carbon Dioxide 23.0 mmol/L (21.0-32.0) 08/04/19 05:20 Anion Gap 7 (5-15) 08/04/19 05:20 BUN 23 mg/dL (7-18) H 08/04/19 05:20 Creatinine 0.50 mg/dL (0.70-1.30) L 08/04/19 05:20 Est GFR (MDRD) Af Amer 218 mL/min (>60) 08/04/19 05:20 Est GFR (MDRD) Non-Af 181 mL/min (>60) 08/04/19 05:20 BUN/Creatinine Ratio 46.2 RATIO (10-20) H 08/04/19 05:20 Glucose 102 mg/dL (74-106) 08/04/19 05:20 Vancomycin Trough 6.2 ug/mL (5.0-15.0) 08/05/19 12:46 Microbiology: Microbiology 08/03/19 20:52 Blood Culture (Wb) - Anticubital Left Blood Culture - Preliminary Staphylococcus aureus 08/03/19 21:07 Blood Culture (Wb) - Venous Bacteria Detection (PCR) - Final Staphylococcus aureus 08/03/19 21:07 Blood Culture (Wb) - Venous Blood Culture - Preliminary Staphylococcus aureus 08/03/19 20:58 Mucosa - Nose Influenza Types A,B Direct FA (LEANA) - Final Weight used for dosin.7 kg Estimated Creatinine Clearance: 161 ml/min Goal Trough: 15-20 mcg/mL Pharmacy Plan for Drug Dosing: Trough today was 6.2 (goal range 15-20mcg/ml). Renal function with Cr 0.5, Cl >100ml/min. Per pharmacokinetic policy, will increase dose to 2000mg iv q12h and get another trough level before 4th dose on 08.07.19. Pharmacy Service will continue to monitor and adjust dosing as required. Follow-Up Labs: Trough Vancomycin - 2.17.20 @1230 before 1300 dose
[2019-08-05] MEDS: Acetaminophen 325 MG Tablet 650 MG PO (14:33)
--- NOTE | 2019-08-05 15:12 | PN_ITS ---
Patient Problems: Active and Suspected Problems (Last Reviewed 08/03/19 @ 15:27 by Scarlett Oscar) Sepsis associated with vascular access catheter (Acute) Sepsis (Acute) Infected venous access port (Acute) Subjective: Patient was seen and examined today, I talked with him and his sister who was in the room today during the time of my examination. He complains that he is not able to eat a pur?ed nectar thickened diet due to lack of saliva, he would request that he be allowed to resume his home diet which is mechanical soft with thin liquids, I told nursing that I would like the speech therapist to reevaluate his dietary needs, if they are insistent on his present diet I would consider changing the patient to a mechanical soft thin liquid diet as he requests if the patient is willing to take the risk. Patient has been afebrile since yesterday. - Physical Exam Vitals/I&O's: Vital Signs Temp Pulse Resp BP Pulse Ox 98.2 F 101 H 20 H 139/78 H 97 08/05/19 13:59 08/05/19 13:59 08/05/19 13:59 08/05/19 13:59 08/05/19 13:59 Oxygen Flow Rate (L/min) 94 Oxygen Delivery Method Room Air Weight: 72.7 kg Body Mass Index (BMI) 22.3 Intake and Output for Last 24 Hours 08/03/19 08/04/19 08/05/19 23:59 23:59 23:59 Intake Total 1050 / 1050 6735.00 / 6935.00 3390.00 / 3390.00 Output Total 200 / 760 760 / 760 Balance 1050 / 1050 6535.00 / 6175.00 2630.00 / 2630.00 General: Alert, Oriented x3, Cooperative, No apparent distress, Well developed HEENT: Atraumatic, PERRLA, EOMI, Normocephalic Oral: Moist Mucosa Neck: Supple, Trachea Midline, Thyroid Normal Size and Texture Lungs: Clear to auscultation, Normal air movement, No rhonchi, No wheeze, No rales Cardiovascular: Regular rate, Regular Rhythm, Normal S1, Normal S2, No murmurs, PMI Normal, No rub noted, No Gallop Abdomen: Bowel Sounds Present, Soft, Non Tender, Non-Distended Extremities: No clubbing, No cyanosis, No edema, Capillary Refill Less than 3 Seconds Musculoskeletal: No Tenderness to Palpation of Joints or Extremities Neurological: Cranial nerves II-XII grossly intact, Neuro grossly intact, Muscle tone normal, Sensory exam intact to light touch and pain Psych/Mental Status: Normal Affect, Appropriate, Alert and oriented to time, place, person, mood and affect Microbiology Past 72 Hours 08/03/19 20:52 Blood Culture (Wb) - Anticubital Left Blood Culture - Preliminary Staphylococcus aureus 08/03/19 21:07 Blood Culture (Wb) - Venous Bacteria Detection (PCR) - Final Staphylococcus aureus 08/03/19 21:07 Blood Culture (Wb) - Venous Blood Culture - Preliminary Staphylococcus aureus 08/03/19 20:58 Mucosa - Nose Influenza Types A,B Direct FA (LEANA) - Final Laboratory Results 08/05/19 08:30: Vancomycin Trough Cancelled 08/05/19 12:46: Vancomycin Trough 6.2 Current Medications Acetaminophen (Tylenol) 650 mg PO Q6H PRN PRN PRN Reason: Pain Score 1-10/Temp > 100.7 F Last Admin: 08/05/19 14:33 Dose: 650 mg Documented by: Al Hydroxide/Mg Hydroxide (Mylanta Ii) 30 ml PO Q6H PRN PRN PRN Reason: Gastric Burning Albuterol Sulfate (Ventolin Aerosols) 2.5 mg INHALATION Q2H PRN PRN PRN Reason: Shortness of Breath/Wheezing Aspirin (Ecotrin) 81 mg PO DAILY@0800 [facility] Last Admin: 08/05/19 08:08 Dose: 81 mg Documented by: Atorvastatin Calcium (Lipitor) 10 mg PO QHS [facility] Last Admin: 08/04/19 21:21 Dose: 10 mg Documented by: Fentanyl (Duragesic Patch) 12 mcg TRANSDERM. Q3D [facility] Glucagon () 1 mg IM .X1 PRN PRN Reason: Hypoglycemia Guaifenesin (Robitussin) 20 ml PO Q4H PRN PRN PRN Reason: COUGH Hydralazine HCl (Apresoline Iv) 10 mg IV Q4H PRN PRN PRN Reason: SBP > 160 Sodium Chloride () 1,000 mls @ 125 mls/hr IV .Q8H [facility] Last Infusion: 08/05/19 13:43 Dose: Infused Documented by: Vancomycin IV Pharmacy to Dose (1 ea/ Sodium Chloride) 500 mls @ 250 mls/hr IV X1 PRN; Protocol PRN Reason: Rx to Dose Dextrose (Dextrose 10%-Water) 250 mls @ 999 mls/hr IV .Q16M PRN; Protocol PRN Reason: HYPOGLYCEMIA Sodium Chloride () 250 mls @ 15 mls/hr IV .[id number] PRN PRN Reason: Saline Flush Sodium Chloride () 250 mls @ 15 mls/hr IV .[id number] PRN PRN Reason: Additional IVPB Infusion Cefazolin Sodium 2 gm/ Sodium (Chloride) 110 mls @ 150 mls/hr IV Q8 [facility] Last Infusion: 08/05/19 14:26 Dose: Infused Documented by: Vancomycin HCl 2,000 mg/ (Sodium Chloride) 540 mls @ 250 mls/hr IV Q12H [facility] Levothyroxine Sodium (Synthroid) 75 mcg PO DAILY@0600 [facility] Last Admin: 08/05/19 05:32 Dose: 75 mcg Documented by: Magnesium Hydroxide (Milk Of Magnesia) 30 ml PO DAILY PRN PRN PRN Reason: Constipation Melatonin (Melatonin) 3 mg PO QHS PRN PRN PRN Reason: INSOMNIA Last Admin: 08/04/19 21:21 Dose: 3 mg Documented by: Morphine Sulfate () 2 mg IV Q3H PRN PRN PRN Reason: Pain Score 6-10/10 Ondansetron HCl (Zofran) 4 mg IV Q8H PRN PRN PRN Reason: NAUSEA/VOMITING Oxycodone HCl (Oxyir) 5 mg PO Q4H PRN PRN PRN Reason: Pain Score 4-5/10 Last Admin: 08/05/19 02:20 Dose: 5 mg Documented by: Pantoprazole Sodium (Protonix) 20 mg PO DAILY [facility] Last Admin: 08/05/19 08:08 Dose: 20 mg Documented by: Prochlorperazine Edisylate (Compazine Iv) 5 mg IV Q4H PRN PRN PRN Reason: Breakthrough nausea/vomiting Psyllium Hydrophilic Mucilloid (Metamucil) 1 packet PO DAILY PRN PRN PRN Reason: Constipation Senna/Docusate Sodium (Senokot-S, Myra-Colace) 2 tablet PO BID PRN PRN PRN Reason: Constipation Sodium Chloride () 10 - 40 ml IV UD PRN PRN Reason: SALINE FLUSH Throat Lozenges (Cepacol Sore Throat Lozenge) 1 lozenge MUCOUS MEM Q2H PRN PRN PRN Reason: SORE THROAT Last Admin: 08/05/19 02:20 Dose: 1 lozenge Documented by: Medical Necessity - Tobacco Use Smoking Status: Former smoker Tobacco Use: Non-smoker Assessment/Plan All Active Problems (Last Reviewed 08/03/19 @ 15:27 by Scarlett Oscar) Encounter for adjustment and management of vascular access device (Acute) Encounter for education (Acute) Sepsis associated with vascular access catheter (Acute) Sepsis (Acute) Infected venous access port (Acute) #1 acute sepsis secondary to infected Mediport with methicillin sensitive staph aureus-status post removal of Mediport postop day #2-continue present antibiotic coverage, repeat blood cultures were obtained, patient will have a CBC ordered tomorrow #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
[2019-08-05] MEDS: Atorvastatin Calcium 10 MG Tablet PO (22:42)
[2019-08-06] VITALS (8 sets, daily range): BP systolic 126–154; BP diastolic 73–99; PULSE 86–122; RESP 16–18; TEMP 36.6–37.1; O2SAT 95–98
[2019-08-06] MEDS: 0.9% Normal Saline 1,000 ML 125 ML IV ×3 (00:33→23:57)
[2019-08-06] MEDS: Levothyroxine 75 MCG Tablet PO (04:58)
[2019-08-06] MEDS: Cefazolin 2 GM in 0.9% Normal Saline 100 ML IV ×3 (05:00→21:35)
[2019-08-06] MEDS: Pantoprazole Sodium 20 MG Tablet PO (09:03)
[2019-08-06] MEDS: oxyCODONE 5 MG Tablet PO ×2 (09:03→19:49)
[2019-08-06] MEDS: Aspirin E.C. 81 MG Tablet PO (09:03)
--- NOTE | 2019-08-06 10:20 | PN_ITS ---
Progress Note Patient's port site still healing well no signs of any purulent drainage, skin is erythematous on the chest due to previous radiation. First blood cultures were positive x2-second blood cultures are still pending. Antibiotics per ID. Renee Odom M.D. Pager: [phone] [facility] [address] [place] [address], Outpatient Pavilion, [address] [place] [address] Office: [phone] STROKE Vital Signs/Narrative: Vital Signs Temp Pulse Resp BP Pulse Ox 08/06/19 09:14 122 H 08/06/19 09:08 98.2 F 122 H 18 129/79 H 96 08/06/19 06:29 95
--- NOTE | 2019-08-06 10:20 | PCM.PN.BLA ---
Progress Note Patient's port site still healing well no signs of any purulent drainage, skin is erythematous on the chest due to previous radiation. First blood cultures were positive x2-second blood cultures are still pending. Antibiotics per ID. Renee Odom M.D. Pager: [phone] [facility] [address] [place] [address], Outpatient Pavilion, [address] [place] [address] Office: [phone] STROKE Vital Signs/Narrative: Vital Signs Temp Pulse Resp BP Pulse Ox 08/06/19 09:14 122 H 08/06/19 09:08 98.2 F 122 H 18 129/79 H 96 08/06/19 06:29 95
[2019-08-06] MEDS: 0.9% Saline Lock 10 ML Syringe IV (12:44)
[2019-08-06] MEDS: Acetaminophen 325 MG Tablet 650 MG PO ×2 (12:49→21:39)
--- NOTE | 2019-08-06 15:23 | PN_ITS ---
Patient Problems: Active and Suspected Problems (Last Reviewed 08/03/19 @ 15:27 by Scarlett Oscar) Sepsis associated with vascular access catheter (Acute) Sepsis (Acute) Infected venous access port (Acute) Subjective: Patient was seen and examined today, he remains afebrile, he has no complaints of any fevers or chills. His latest blood cultures are pending at this time. Echocardiogram yesterday did not show any evidence of vegetations. Objective: General: Alert, Oriented x3, Cooperative HEENT: Atraumatic, PERRLA, EOMI, Normocephalic Oral: Moist Mucosa Neck: Supple, No JVD, No Nuchal Rigidity, Trachea Midline Lungs: Clear to auscultation, Normal air movement, No rhonchi, No wheeze Cardiovascular: Regular rate, No murmurs Abdomen: Bowel Sounds Present, Soft, Non Tender, Non-Distended, No hernias noted Extremities: No clubbing, No cyanosis, No edema, Capillary Refill Less than 3 Seconds Skin: No rashes Musculoskeletal: No Tenderness to Palpation of Joints or Extremities Neurological: Cranial nerves II-XII grossly intact, Neuro grossly intact, Sensory exam intact to light touch and pain Psych/Mental Status: Normal Affect, Appropriate, Alert and oriented to time, place, person, mood and affect - Physical Exam Vitals/I&O's: Vital Signs Temp Pulse Resp BP Pulse Ox 97.9 F 86 16 126/73 H 96 08/06/19 15:06 08/06/19 15:06 08/06/19 15:06 08/06/19 15:06 08/06/19 15:06 Oxygen Flow Rate (L/min) 94 Oxygen Delivery Method Room Air Weight: 72.7 kg Body Mass Index (BMI) 22.3 Intake and Output for Last 24 Hours 08/04/19 08/05/19 08/06/19 23:59 23:59 23:59 Intake Total 6735.00 / 6935.00 5390.00 / 5590.00 2768.75 / 2768.75 Output Total 200 / 760 760 / 1310 3375 / 3375 Balance 6535.00 / 6175.00 4630.00 / 4280.00 -606.25 / -606.25 Microbiology Past 72 Hours 08/03/19 21:07 Blood Culture (Wb) - Venous Bacteria Detection (PCR) - Final Staphylococcus aureus 08/03/19 21:07 Blood Culture (Wb) - Venous Blood Culture - Preliminary Staphylococcus aureus 08/03/19 20:52 Blood Culture (Wb) - Anticubital Left Blood Culture - Prelimi nary Staphylococcus aureus 08/03/19 20:58 Mucosa - Nose Influenza Types A,B Direct FA ([facility]) - Final Current Medications Acetaminophen (Tylenol) 650 mg PO Q6H PRN PRN PRN Reason: Pain Score 1-10/Temp > 100.7 F Last Admin: 08/06/19 12:49 Dose: 650 mg Documented by: Al Hydroxide/Mg Hydroxide (Mylanta Ii) 30 ml PO Q6H PRN PRN PRN Reason: Gastric Burning Albuterol Sulfate (Ventolin Aerosols) 2.5 mg INHALATION Q2H PRN PRN PRN Reason: Shortness of Breath/Wheezing Aspirin (Ecotrin) 81 mg PO DAILY@0800 [facility] Last Admin: 08/06/19 09:03 Dose: 81 mg Documented by: Atorvastatin Calcium (Lipitor) 10 mg PO QHS [facility] Last Admin: 08/05/19 22:42 Dose: 10 mg Documented by: Fentanyl (Duragesic Patch) 12 mcg TRANSDERM. Q3D [facility] Glucagon () 1 mg IM .X1 PRN PRN Reason: Hypoglycemia Guaifenesin (Robitussin) 20 ml PO Q4H PRN PRN PRN Reason: COUGH Hydralazine HCl (Apresoline Iv) 10 mg IV Q4H PRN PRN PRN Reason: SBP > 160 Sodium Chloride () 1,000 mls @ 125 mls/hr IV .Q8H [facility] Last Infusion: 08/06/19 12:56 Dose: 0 mls/hr Documented by: Vancomycin IV Pharmacy to Dose (1 ea/ Sodium Chloride) 500 mls @ 250 mls/hr IV X1 PRN; Protocol PRN Reason: Rx to Dose Dextrose (Dextrose 10%-Water) 250 mls @ 999 mls/hr IV .Q16M PRN; Protocol PRN Reason: HYPOGLYCEMIA Sodium Chloride () 250 mls @ 15 mls/hr IV .[id number] PRN PRN Reason: Saline Flush Sodium Chloride () 250 mls @ 15 mls/hr IV .[id number] PRN PRN Reason: Additional IVPB Infusion Cefazolin Sodium 2 gm/ Sodium (Chloride) 110 mls @ 150 mls/hr IV Q8 [facility] Last Admin: 08/06/19 15:00 Dose: 150 mls/hr Documented by: Vancomycin HCl 2,000 mg/ (Sodium Chloride) 540 mls @ 250 mls/hr IV Q12H [facility] Last Admin: 08/06/19 12:49 Dose: 250 mls/hr Documented by: Levothyroxine Sodium (Synthroid) 75 mcg PO DAILY@0600 [facility] Last Admin: 08/06/19 04:58 Dose: 75 mcg Documented by: Magnesium Hydroxide (Milk Of Magnesia) 30 ml PO DAILY PRN PRN PRN Reason: Constipation Melatonin (Melatonin) 3 mg PO QHS PRN PRN PRN Reason: INSOMNIA Last Admin: 08/04/19 21:21 Dose: 3 mg Documented by: Morphine Sulfate () 2 mg IV Q3H PRN PRN PRN Reason: Pain Score 6-10/10 Ondansetron HCl (Zofran) 4 mg IV Q8H PRN PRN PRN Reason: NAUSEA/VOMITING Oxycodone HCl (Oxyir) 5 mg PO Q4H PRN PRN PRN Reason: Pain Score 4-5/10 Last Admin: 08/06/19 09:03 Dose: 5 mg Documented by: Pantoprazole Sodium (Protonix) 20 mg PO DAILY [facility] Last Admin: 08/06/19 09:03 Dose: 20 mg Documented by: Prochlorperazine Edisylate (Compazine Iv) 5 mg IV Q4H PRN PRN PRN Reason: Breakthrough nausea/vomiting Psyllium Hydrophilic Mucilloid (Metamucil) 1 packet PO DAILY PRN PRN PRN Reason: Constipation Senna/Docusate Sodium (Senokot-S, Myra-Colace) 2 tablet PO BID PRN PRN PRN Reason: Constipation Sodium Chloride () 10 - 40 ml IV UD PRN PRN Reason: SALINE FLUSH Last Admin: 08/06/19 12:44 Dose: 10 ml Documented by: Throat Lozenges (Cepacol Sore Throat Lozenge) 1 lozenge MUCOUS MEM Q2H PRN PRN PRN Reason: SORE THROAT Last Admin: 08/05/19 02:20 Dose: 1 lozenge Documented by: Medical Necessity - Tobacco Use Smoking Status: Former smoker Tobacco Use: Non-smoker Assessment/Plan All Active Problems (Last Reviewed 08/03/19 @ 15:27 by Scarlett Oscar) Encounter for adjustment and management of vascular access device (Acute) Encounter for education (Acute) Sepsis associated with vascular access catheter (Acute) Sepsis (Acute) Infected venous access port (Acute) #1 acute sepsis secondary to infected Mediport with methicillin sensitive staph aureus-status post removal of Mediport postop day #3-continue present antibiotic coverage, repeat blood cultures were obtained, patient will have a CBC ordered tomorrow #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
--- NOTE | 2019-08-06 18:46 | NURSING ---
Patch in place to left chest-- pt reports that it is a Fentanyl patch, 12mcg. Patch due to be changed this evening.
[2019-08-06] MEDS: Atorvastatin Calcium 10 MG Tablet PO (21:35)
[2019-08-07 02:05] VITALS: BP 150/100; PULSE 85; RESP 16; TEMP 36.8; O2SAT 97
[2019-08-07 02:25] VITALS: O2SAT 97
[2019-08-07] MEDS: Levothyroxine 75 MCG Tablet PO (05:04)
[2019-08-07] MEDS: oxyCODONE 5 MG Tablet PO ×2 (05:04→09:34)
[2019-08-07] MEDS: Cefazolin 2 GM in 0.9% Normal Saline 100 ML IV (05:04)
[2019-08-07 06:56] LABS: Absolute Lymphocyte Count 0.85 X10^3/uL (0.83-4.51); Absolute Neutrophil Count 3.7 X10^3/uL (2.0-7.7); Basophil# 0.04 X10^3/uL; Basophil% 0.7 % (0-1); Eosinophil# 0.21 X10^3/uL; Eosinophils% 3.9 % (0-5); Hematocrit 33.8 % (40-54); Hemoglobin 10.8 g/dL (13.0-16.5); Lymphocyte # 0.85 X10^3/ul (4.0); Lymphocyte % 15.8 % (19-41); Mean Corpuscular Hgb 28.2 pg (27.0-32.0); Mean Corpuscular Volume 88.3 fL (80-94); Mean Platelet Vol. 9.6 fl (6.2-12.0); Monocyte# 0.55 X10^3/uL; Monocyte% 10.2 % (0-10); NRBC Flagged by Analyzer 0 % (0-5); Neutrophil # 3.66 X10^3/uL (2.7-7.7); Neutrophil % 67.9 % (47-70); Platelet Count 237 K/mm3 (150-450); RBC Distribution Width CV 12.4 % (11.6-14.6); RBC Distribution Width SD 40.6 fl (35.1-43.9); Red Blood Count 3.83 M/mm3 (4.6-6.2); White Blood Count 5.4 K/mm3 (4.4-11.0)
[2019-08-07 09:30] VITALS: BP 120/72; PULSE 83; RESP 16; TEMP 36.6; O2SAT 97
[2019-08-07] MEDS: Aspirin E.C. 81 MG Tablet PO (09:34)
[2019-08-07] MEDS: Pantoprazole Sodium 20 MG Tablet PO (09:34)
--- NOTE | 2019-08-07 10:33 | PCM.PN.SRG ---
Patient Problems: Active and Suspected Problems (Last Reviewed 08/03/19 @ 15:27 by Scarlett Oscar) Sepsis associated with vascular access catheter (Acute) Sepsis (Acute) Infected venous access port (Acute) Subjective: Patient seems to be doing well this morning with no complaints. - Physical Exam Vitals/I&O's: Vital Signs Temp Pulse Resp BP Pulse Ox 97.8 F 83 16 120/72 97 08/07/19 09:30 08/07/19 09:30 08/07/19 09:30 08/07/19 09:30 08/07/19 09:30 Oxygen Flow Rate (L/min) 94 Oxygen Delivery Method Room Air Weight: 160 lb 4.417 oz Body Mass Index (BMI) 22.3 Intake and Output for Last 24 Hours 08/05/19 08/06/19 08/07/19 23:59 23:59 23:59 Intake Total 5390.00 / 5590.00 4710.00 / 5050.00 1975.41 / 1975.41 Output Total 760 / 1310 3375 / 3375 2150 / 2150 Balance 4630.00 / 4280.00 1335.00 / 1675.00 -174.59 / -174.59 General: Alert, Oriented x3 Lungs: Normal air movement Cardiovascular: Regular rate, Regular Rhythm Abdomen: Soft, Non Tender, Non-Distended Microbiology Past 72 Hours 08/04/19 16:50 Blood Culture (Wb) - Anticubital Left Blood Culture - Preliminary No growth in 48 hours. 08/03/19 21:07 Blood Culture (Wb) - Venous Bacteria Detection (PCR) - Final Staphylococcus aureus 08/03/19 21:07 Blood Culture (Wb) - Venous Blood Culture - Final Staphylococcus aureus 08/03/19 20:52 Blood Culture (Wb) - Anticubital Left Blood Culture - Preliminary Staphylococcus aureus Laboratory Results 08/07/19 06:05: WBC 5.4, RBC 3.83 L, Hgb 10.8 L, Hct 33.8 L, MCV 88.3, MCH 28.2, MCHC 32.0, RDW Std Deviation 40.6, RDW Coeff of [place] 12.4, Plt Count 237, MPV 9.6, Immature Gran % (Auto) 1.500 H, Neut % (Auto) 67.9, Lymph % (Auto) 15.8 L, Sharp % (Auto) 10.2 H, Eos % (Auto) 3.9, Baso % (Auto) 0.7, Absolute Neuts (auto) 3.7, Absolute Lymphs (auto) 0.85, Nucleated RBC % 0 Current Medications Acetaminophen (Tylenol) 650 mg PO Q6H PRN PRN PRN Reason: Pain Score 1-10/Temp > 100.7 F Last Admin: 08/06/19 21:39 Dose: 650 mg Documented by: Al Hydroxide/Mg Hydroxide (Mylanta Ii) 30 ml PO Q6H PRN PRN PRN Reason: Gastric Burning Albuterol Sulfate (Ventolin Aerosols) 2.5 mg INHALATION Q2H PRN PRN PRN Reason: Shortness of Breath/Wheezing Aspirin (Ecotrin) 81 mg PO DAILY@0800 [facility] Last Admin: 08/07/19 09:34 Dose: 81 mg Documented by: Atorvastatin Calcium (Lipitor) 10 mg PO QHS [facility] Last Admin: 08/06/19 21:35 Dose: 10 mg Documented by: Fentanyl (Duragesic Patch) 12 mcg TRANSDERM. Q3D [facility] Last Admin: 08/06/19 20:14 Dose: 12 mcg Documented by: Glucagon () 1 mg IM .X1 PRN PRN Reason: Hypoglycemia Guaifenesin (Robitussin) 20 ml PO Q4H PRN PRN PRN Reason: COUGH Hydralazine HCl (Apresoline Iv) 10 mg IV Q4H PRN PRN PRN Reason: SBP > 160 Vancomycin IV Pharmacy to Dose (1 ea/ Sodium Chloride) 500 mls @ 250 mls/hr IV X1 PRN; Protocol PRN Reason: Rx to Dose Dextrose (Dextrose 10%-Water) 250 mls @ 999 mls/hr IV .Q16M PRN; Protocol PRN Reason: HYPOGLYCEMIA Sodium Chloride () 250 mls @ 15 mls/hr IV .[id number] PRN PRN Reason: Saline Flush Sodium Chloride () 250 mls @ 15 mls/hr IV .[id number] PRN PRN Reason: Additional IVPB Infusion Cefazolin Sodium 2 gm/ Sodium (Chloride) 110 mls @ 150 mls/hr IV Q8 [facility] Last Infusion: 08/07/19 05:48 Dose: Infused Documented by: Vancomycin HCl 2,000 mg/ (Sodium Chloride) 540 mls @ 250 mls/hr IV Q12H [facility] Last Infusion: 08/07/19 03:08 Dose: Infused Documented by: Levothyroxine Sodium (Synthroid) 75 mcg PO DAILY@0600 [facility] Last Admin: 08/07/19 05:04 Dose: 75 mcg Documented by: Magnesium Hydroxide (Milk Of Magnesia) 30 ml PO DAILY PRN PRN PRN Reason: Constipation Melatonin (Melatonin) 3 mg PO QHS PRN PRN PRN Reason: INSOMNIA Last Admin: 08/04/19 21:21 Dose: 3 mg Documented by: Morphine Sulfate () 2 mg IV Q3H PRN PRN PRN Reason: Pain Score 6-10/10 Ondansetron HCl (Zofran) 4 mg IV Q8H PRN PRN PRN Reason: NAUSEA/VOMITING Oxycodone HCl (Oxyir) 5 mg PO Q4H PRN PRN PRN Reason: Pain Score 4-5/10 Last Admin: 08/07/19 09:34 Dose: 5 mg Documented by: Pantoprazole Sodium (Protonix) 20 mg PO DAILY [facility] Last Admin: 08/07/19 09:34 Dose: 20 mg Documented by: Prochlorperazine Edisylate (Compazine Iv) 5 mg IV Q4H PRN PRN PRN Reason: Breakthrough nausea/vomiting Psyllium Hydrophilic Mucilloid (Metamucil) 1 packet PO DAILY PRN PRN PRN Reason: Constipation Senna/Docusate Sodium (Senokot-S, Myra-Colace) 2 tablet PO BID PRN PRN PRN Reason: Constipation Sodium Chloride () 10 - 40 ml IV UD PRN PRN Reason: SALINE FLUSH Last Admin: 08/06/19 12:44 Dose: 10 ml Documented by: Throat Lozenges (Cepacol Sore Throat Lozenge) 1 lozenge MUCOUS MEM Q2H PRN PRN PRN Reason: SORE THROAT Last Admin: 08/05/19 02:20 Dose: 1 lozenge Documented by: Medical Necessity - Tobacco Use Smoking Status: Former smoker Tobacco Use: Non-smoker Assessment/Plan All Active Problems (Last Reviewed 08/03/19 @ 15:27 by Scarlett Oscar) Encounter for adjustment and management of vascular access device (Acute) Encounter for education (Acute) Sepsis associated with vascular access catheter (Acute) Sepsis (Acute) Infected venous access port (Acute) 59-year-old male with port site infection 1. The patient had port removal last . He was readmitted with positive blood cultures. He has been doing well on IV antibiotics. Awaiting secondary culture for discharge but from my standpoint he is okay for discharge. I have asked the nurse to remove his sutures. He can follow-up with me as an outpatient. Brad Chacon MD Pager: [facility] [address] [place] [address], [address] [place] [address] Office:
--- NOTE | 2019-08-07 11:13 | DCINST_ITS ---
- Discharge Diagnoses Current Active Problems: Current Active and Chronic Problems (Last Reviewed 08/03/19 @ 15:27 by Scarlett Oscar) Sepsis associated with vascular access catheter (Acute) Sepsis (Acute) Infected venous access port (Acute) Squamous cell cancer of buccal mucosa (Chronic) You will use the following diet at home:: No restrictions Your food should be the consistency of: Regular Your liquids should be the consistency of: Regular/Thin Discharge Activity: Return to Normal Activity Allergies/Adverse Reactions: Allergies No Known Allergies Allergy (Verified 08/03/19 20:31) Medications to take at Discharge Aspirin E.C. [Ecotrin] 81 mg PO DAILY@0800 06/27/19 Omeprazole [Prilosec] 20 mg PO DAILY 06/27/19 Simvastatin [Zocor] 20 mg PO QHS 06/27/19 Levothyroxine [Synthroid] 75 mcg PO DAILY 07/17/19 Lidocaine/Prilocaine [Lidocaine-Prilocaine Cream] 1 applicatio TP DAILY PRN PRN 30 Days #1 tube 07/17/19 fentaNYL patch [Duragesic Patch] 12 mcg TRANSDERM. Q3D 9 Days #3 patch 08/02/19 Linezolid 600 mg PO BID 12 Days #24 tab 08/07/19 The following prescriptions were given: Linezolid 600 mg PO BID 12 Days #24 tab Transmission Status: Received by RUB[address]N [address] Primary Care Physician: Jaylon Tripp MD [Primary Care Provider] - Please follow up with your Primary Care Physician in: in 3 weeks Test Results: Test results from this visit will be discussed in further detail at your follow- up appointment, if applicable. Please Follow Up With: Cesar Saab MD When: as scheduled Please Follow Up With: Brad Chacon MD When: as directed
--- NOTE | 2019-08-07 11:40 | PCM.PN.ID ---
Patient Problems: Active and Suspected Problems (Last Reviewed 08/03/19 @ 15:27 by Scarlett Oscar) Sepsis associated with vascular access catheter (Acute) Sepsis (Acute) Infected venous access port (Acute) Subjective: Feeling much better, no fever, no pain, no drainage from surgical site. - Physical Exam Vitals/I&O's: Vital Signs Temp Pulse Resp BP Pulse Ox 97.8 F 83 16 120/72 97 08/07/19 09:30 08/07/19 09:30 08/07/19 09:30 08/07/19 09:30 08/07/19 09:30 Oxygen Flow Rate (L/min) 94 Oxygen Delivery Method Room Air Weight: 72.7 kg Body Mass Index (BMI) 22.3 Intake and Output for Last 24 Hours 08/05/19 08/06/19 08/07/19 23:59 23:59 23:59 Intake Total 5390.00 / 5590.00 4710.00 / 5050.00 1975.41 / 1975.41 Output Total 760 / 1310 3375 / 3375 2150 / 2150 Balance 4630.00 / 4280.00 1335.00 / 1675.00 -174.59 / -174.59 General: Alert, Cooperative, No apparent distress Lungs: Clear to auscultation, Normal air movement Cardiovascular: Regular rate, Regular Rhythm, No murmurs Abdomen: Soft, Non Tender, Non-Distended Skin: Ulcer/ Wound - no redness or drainage from R chest Microbiology Past 72 Hours 08/04/19 16:50 Blood Culture (Wb) - Anticubital Left Blood Culture - Preliminary No growth in 48 hours. 08/03/19 21:07 Blood Culture (Wb) - Venous Bacteria Detection (PCR) - Final Staphylococcus aureus 08/03/19 21:07 Blood Culture (Wb) - Venous Blood Culture - Final Staphylococcus aureus 08/03/19 20:52 Blood Culture (Wb) - Anticubital Left Blood Culture - Preliminary Staphylococcus aureus Laboratory Results 08/07/19 06:05: WBC 5.4, RBC 3.83 L, Hgb 10.8 L, Hct 33.8 L, MCV 88.3, MCH 28.2, MCHC 32.0, RDW Std Deviation 40.6, RDW Coeff of [place] 12.4, Plt Count 237, MPV 9.6, Immature Gran % (Auto) 1.500 H, Neut % (Auto) 67.9, Lymph % (Auto) 15.8 L, [place] % (Auto) 10.2 H, Eos % (Auto) 3.9, Baso % (Auto) 0.7, Absolute Neuts (auto) 3.7, Absolute Lymphs (auto) 0.85, Nucleated RBC % 0 Current Medications Acetaminophen (Tylenol) 650 mg PO Q6H PRN PRN PRN Reason: Pain Score 1-10/Temp > 100.7 F Last Admin: 08/06/19 21:39 Dose: 650 mg Documented by: Al Hydroxide/Mg Hydroxide (Mylanta Ii) 30 ml PO Q6H PRN PRN PRN Reason: Gastric Burning Albuterol Sulfate (Ventolin Aerosols) 2.5 mg INHALATION Q2H PRN PRN PRN Reason: Shortness of Breath/Wheezing Aspirin (Ecotrin) 81 mg PO DAILY@0800 [facility] Last Admin: 08/07/19 09:34 Dose: 81 mg Documented by: Atorvastatin Calcium (Lipitor) 10 mg PO QHS [facility] Last Admin: 08/06/19 21:35 Dose: 10 mg Documented by: Fentanyl (Duragesic Patch) 12 mcg TRANSDERM. Q3D [facility] Last Admin: 08/06/19 20:14 Dose: 12 mcg Documented by: Glucagon () 1 mg IM .X1 PRN PRN Reason: Hypoglycemia Guaifenesin (Robitussin) 20 ml PO Q4H PRN PRN PRN Reason: COUGH Hydralazine HCl (Apresoline Iv) 10 mg IV Q4H PRN PRN PRN Reason: SBP > 160 Vancomycin IV Pharmacy to Dose (1 ea/ Sodium Chloride) 500 mls @ 250 mls/hr IV X1 PRN; Protocol PRN Reason: Rx to Dose Dextrose (Dextrose 10%-Water) 250 mls @ 999 mls/hr IV .Q16M PRN; Protocol PRN Reason: HYPOGLYCEMIA Sodium Chloride () 250 mls @ 15 mls/hr IV .[id number] PRN PRN Reason: Saline Flush Sodium Chloride () 250 mls @ 15 mls/hr IV .[id number] PRN PRN Reason: Additional IVPB Infusion Cefazolin Sodium 2 gm/ Sodium (Chloride) 110 mls @ 150 mls/hr IV Q8 [facility] Last Infusion: 08/07/19 05:48 Dose: Infused Documented by: Vancomycin HCl 2,000 mg/ (Sodium Chloride) 540 mls @ 250 mls/hr IV Q12H [facility] Last Infusion: 08/07/19 03:08 Dose: Infused Documented by: Levothyroxine Sodium (Synthroid) 75 mcg PO DAILY@0600 [facility] Last Admin: 08/07/19 05:04 Dose: 75 mcg Documented by: Magnesium Hydroxide (Milk Of Magnesia) 30 ml PO DAILY PRN PRN PRN Reason: Constipation Melatonin (Melatonin) 3 mg PO QHS PRN PRN PRN Reason: INSOMNIA Last Admin: 08/04/19 21:21 Dose: 3 mg Documented by: Morphine Sulfate () 2 mg IV Q3H PRN PRN PRN Reason: Pain Score 6-10/10 Ondansetron HCl (Zofran) 4 mg IV Q8H PRN PRN PRN Reason: NAUSEA/VOMITING Oxycodone HCl (Oxyir) 5 mg PO Q4H PRN PRN PRN Reason: Pain Score 4-5/10 Last Admin: 08/07/19 09:34 Dose: 5 mg Documented by: Pantoprazole Sodium (Protonix) 20 mg PO DAILY [facility] Last Admin: 08/07/19 09:34 Dose: 20 mg Documented by: Prochlorperazine Edisylate (Compazine Iv) 5 mg IV Q4H PRN PRN PRN Reason: Breakthrough nausea/vomiting Psyllium Hydrophilic Mucilloid (Metamucil) 1 packet PO DAILY PRN PRN PRN Reason: Constipation Senna/Docusate Sodium (Senokot-S, Myra-Colace) 2 tablet PO BID PRN PRN PRN Reason: Constipation Sodium Chloride () 10 - 40 ml IV UD PRN PRN Reason: SALINE FLUSH Last Admin: 08/06/19 12:44 Dose: 10 ml Documented by: Throat Lozenges (Cepacol Sore Throat Lozenge) 1 lozenge MUCOUS MEM Q2H PRN PRN PRN Reason: SORE THROAT Last Admin: 08/05/19 02:20 Dose: 1 lozenge Documented by: Medical Necessity - Tobacco Use Smoking Status: Former smoker Tobacco Use: Non-smoker Route of nutrition/ use of supplements: [] Nutritional Intake: [] IV Site: [] [place] Catheter: [] - Assessment/Plan Antibiotics: [] Assessment/Plan: [] Active and Suspected Problems (Last Reviewed 08/03/19 @ 15:27 by Scarlett Oscar) Encounter for education (Acute) Sepsis associated with vascular access catheter (Acute) Sepsis (Acute) Infected venous access port (Acute) R chest mssa port infection and bacteremia - removed by Dr. Chacon 08/03. Recent chemotherapy. Presented with sepsis. Had rapid clearance of bcx, resolution of fever, and removable nidus of infection. TTE was neg. Weighing the available options, favor discharge home today on 14 days total of abx with po linezolid. He is to monitor for fever, pain/redness/drainage. I gave him my card if he has any issues. Will follow. D/w case fitter and Dr. Zamarripa
[2019-08-07 12:00] VITALS: BP 125/67; PULSE 81; RESP 16; TEMP 36.8; O2SAT 96
--- NOTE | 2019-08-08 11:34 | DS.PCM_ITS ---
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 The Mediport was removed on 08/03/2019 and cultures were taken of the area and he was placed on doxycycline. He came to the emergency room for evaluation after he noted malaise fevers and chills at home. Work-up in the emergency room feel an elevated white blood cell count of 15, hemoglobin was 11.7, lactic acid was unremarkable, chemistry profile included a liver profile which was abnormal for an elevated alkaline phosphatase and elevated liver enzymes. Patient patient was admitted for acute sepsis secondary to an infected right Mediport removal site, he was placed on Zosyn and IV vancomycin. PCR resulted in positive for MRSA, he was seen in consultation by infectious diseases and general surgery while he was admitted. Patient's antibiotic coverage was changed by ID during his hospitalization. Patient remained stable during his hospitalization and there were no untoward events, patient's white blood cell count returned to normal. On 08/07/2019, patient was seen and examined: On examination he appeared in good health and spirits. Vital signs as documented. Skin warm and dry and without overt rashes. Neck without JVD. Lungs clear. Heart exam notable for regular rhythm, normal sounds and absence of murmurs, rubs or gallops. Abdomen unremarkable and without evidence of organomegaly, masses, or abdominal aortic enlargement. Extremities nonedematous. Neuro: Cranial nerves II through XII are grossly intact, no focal motor deficits were noted, sensation to light touch and pinprick intact. Psych: Patient is alert and oriented x3, he does not appear anxious or depressed On 08/07/2019, patient was seen and examined and felt to be in stable condition for discharge home - Physical Exam Vitals/I&O's: Vital Signs Temp Pulse Resp BP Pulse Ox 98.2 F 81 16 125/67 H 96 08/07/19 12:00 08/07/19 12:00 08/07/19 12:00 08/07/19 12:00 08/07/19 12:00 Oxygen Flow Rate (L/min) 94 Oxygen Delivery Method Room Air Weight: 72.7 kg Body Mass Index (BMI) 22.3 Intake and Output for Last 24 Hours 08/06/19 08/07/19 08/08/19 23:59 23:59 23:59 Intake Total 4710.00 / 5050.00 1975.41 / 1975.41 Output Total 3375 / 3375 2150 / 2150 Balance 1335.00 / 1675.00 -174.59 / -174.59 Microbiology Past 72 Hours 08/05/19 11:00 Blood Culture (Wb) - Anticubital Left Blood Culture - Preliminary No growth in 48 hours. 08/04/19 16:50 Blood Culture (Wb) - Anticubital Left Blood Culture - Preliminary No growth in 48 hours. 08/03/19 21:07 Blood Culture (Wb) - Venous Bacteria Detection (PCR) - Final Staphylococcus aureus 08/03/19 21:07 Blood Culture (Wb) - Venous Blood Culture - Final Staphylococcus aureus 08/03/19 20:52 Blood Culture (Wb) - Anticubital Left Blood Culture - Preliminary Staphylococcus aureus Discharge Activity: Return to Normal Activity Home Medications: Medications to take at Discharge Aspirin E.C. [Ecotrin] 81 mg PO DAILY@0800 06/27/19 Omeprazole [Prilosec] 20 mg PO DAILY 06/27/19 Simvastatin [Zocor] 20 mg PO QHS 06/27/19 Levothyroxine [Synthroid] 75 mcg PO DAILY 07/17/19 Lidocaine/Prilocaine [Lidocaine-Prilocaine Cream] 1 applicatio TP DAILY PRN PRN 30 Days #1 tube 07/17/19 fentaNYL patch [Duragesic Patch] 12 mcg TRANSDERM. Q3D 9 Days #3 patch 08/02/19 Linezolid 600 mg PO BID 12 Days #24 tab 08/07/19 Following Prescrptions Were Given to Patient: Linezolid 600 mg PO BID 12 Days #24 tab Transmission Status: Received by [facility] Primary Care Physician: Jaylon Tripp MD [Primary Care Provider] - Please follow up with your Primary Care Physician in: in 3 weeks Please Follow Up With: Cesar Saab MD When: as scheduled Please Follow Up With: Brad Chacon MD When: 2 weeks Please Follow Up With: Jaylon Tripp MD When: 3 weeks Disposition: Home Minutes spent on discharge:: 32 Patient Condition:: Stable Medical Necessity - Tobacco Use Smoking Status: Former smoker Tobacco Use: Non-smoker Meaningful Use Info Meaningful Use Diagnoses (Choose all that apply): None applicable Code Visit Inpatient E&M: 40853 Disch Hosp
--- NOTE | 2019-08-08 13:38 | CASEMGMT ---
PAT ALVARES DC PHONE CALL DC DATE: 08.07.2019 DC Disposition: Home Diagnosis on Discharge: acute sepsis, infected Mediport with MRSA LACE/STRATA: 05/24 Attempted call to phone. No answer, messaging machine did have name identifier. Message left with PAT ALVARES call back if pt had questions re: instructions, medications or f/u. A.Jesus BSN [facility]
== END 2019-08-07 12:15 | disposition home or self-care (01) | DRG 314 ==
LOC: ED 22:27 → PCU 22:58 → MS3 23:11
PROVIDERS: Admitting Provider Family Medicine; Emergency Provider Emergency Medicine; PCP Family Medicine; Visit Provider Internal Medicine
DX: T80.211A Bloodstream infection due to central venous catheter, initial encounter (principal); A41.01 Sepsis due to Methicillin susceptible Staphylococcus aureus; I69.354 Hemiplegia and hemiparesis following cerebral infarction affecting left non-dominant side; C78.7 Secondary malignant neoplasm of liver and intrahepatic bile duct; T80.212A Local infection due to central venous catheter, initial encounter; K21.9 Gastro-esophageal reflux disease without esophagitis; C10.8 Malignant neoplasm of overlapping sites of oropharynx; G70.00 Myasthenia gravis without (acute) exacerbation; E03.9 Hypothyroidism, unspecified; E78.5 Hyperlipidemia, unspecified; G89.4 Chronic pain syndrome; Y83.8 Other surgical procedures as the cause of abnormal reaction of the patient, or of later complication, without mention of misadventure at the time of the procedure; G89.3 Neoplasm related pain (acute) (chronic); Z87.891 Personal history of nicotine dependence
CPT/HCPCS: 36415; 71046; 80053; 80202; 81001; 83605; 83735; 84100; 85025; 85610; 85730; 87040; 87070; 87077; 87149; 87186; 87205; 87640; 87804; 92610; 93005; 93306; 99285; J7030; J7040; J7050; A4216

== ENCOUNTER → 2019-08-03 | Outpatient (CLI) | payer MEDICARE, SELFPAY ==
[2019-08-03 15:26] VITALS: BMI 22.1
== END | disposition home or self-care (01) ==
LOC: LABSPEC 16:37
PROVIDERS: PCP Family Medicine; Referring Provider Surgery; Visit Provider Surgery
DX: T80.219A Unspecified infection due to central venous catheter, initial encounter (principal)
CPT/HCPCS: 87070; 87077; 87186; 87205

== ENCOUNTER 2019-08-29 13:55 | Day surgery (SDC) | payer MEDICARE, SELFPAY ==
[2019-08-21 09:14] VITALS: BMI 22.4
[2019-08-29] VITALS (8 sets, daily range): BP systolic 95–110; BP diastolic 58–67; PULSE 78–86; RESP 15–18; TEMP 36.3–36.9; O2SAT 95–99; BMI 21.9
--- NOTE | 2019-08-29 13:58 | PCM.HP.BLA ---
Problem List (1) Encounter for adjustment and management of vascular access device Status: Acute History and Physical Date of Admission: 08/29/19 Intake Vital Signs 08/21/19 BMI 22.4 Intake Visit Reasons: f/u infected port removal/antibiotics Chief Complaint: F/U for Keytruda. Allergies No Known Allergies Allergy (Verified 08/21/19 09:13) Medications Aspirin E.C. [Ecotrin] 81 mg PO DAILY@0800 06/27/19 [History Confirmed 08/21/19] Omeprazole [Prilosec] 20 mg PO DAILY 06/27/19 [History Confirmed 08/21/19] Simvastatin [Zocor] 20 mg PO QHS 06/27/19 [History Confirmed 08/21/19] Levothyroxine [Synthroid] 75 mcg PO DAILY 07/17/19 [History Confirmed 08/21/19] Lidocaine/Prilocaine [Lidocaine-Prilocaine Cream] 1 applicatio TP DAILY PRN PRN 30 Days #1 tube 07/17/19 [Rx Confirmed 08/21/19] fentaNYL patch [Duragesic Patch] 12 mcg TRANSDERM. Q3D 9 Days #3 patch 08/02/19 [Rx Confirmed 08/21/19] fentaNYL patch [Duragesic Patch] 12 mcg TRANSDERM. Q3D #10 patch 08/09/19 [Rx Confirmed 08/21/19] PFSH Medical History CVA (cerebral vascular accident) (Acute) Hypercholesteremia (Acute) Thyroid dysfunction (Acute) squamous cell (Acute) Surgical History History of laryngoscopy (Acute) Family History Father Colon cancer Brother squamous cell cancer Mother CVA (cerebral vascular accident) Social History (Updated 08/21/19 @ 09:[address] Brad Chacon MD) Smoking Status: Former smoker HPI HPI HPI: NOLBERTO AMAYA, is a 59 M who presents to the office today for HPI HPI HPI: NOLBERTO AMAYA, is a 59 M who presents to the office today for Follow-up after his port was removed. The patient was admitted for bacteremia and is finishing his antibiotics. He has having no issues and his incision is healed well. Patient would like discuss placement of a new port. ROS General General: No weight change or fatigue Skin Additional Details: Pain at the chest port catheter site Cardio Cardiovascular: No murmur, pacemaker, heart disease, atrial fibrillation, high blood pressure, heart attack, heart stent, palpitations, shortness of breat with exertion or chest pain Psych Psychiatric: No depression or anxiety Resp Respiratory: No shortness of breath, No sleep apnea, No cough, No COPD, No asthma, No emphysema, No wheezing Gastro Gastrointestinal: No abdominal pain, No nausea or vomiting, No diarrhea, No constipation, No blood in stool, No acid reflux, No hemorrhoids, No ulcers, No gallbladder problem, No black,tarry stools Matthew Hematologic: No blood thinners Exam Const General: cooperative Orientation: alert, oriented x3 Chest Other: Right chest incision is healing well with no erythema Resp Effort & Inspection: normal respiratory effort Auscultation: clear to auscultation bilaterally Cardio Rate: regular rate Rhythm: regular rhythm Heart Sounds: no murmurs GI Inspection: non-distended Palpation: soft, nontender Assessment & Plan Problems 1. Encounter for adjustment and management of vascular access device Z45.2 2. Infection of venous access port, initial encounter T80.219A Plan The patient had an infection of his Port-A-Cath and it was removed in mid July. The patient would like it replaced as he feels this would be helpful. He is finishing his antibiotics and his site has healed well with no signs of ongoing infection. He is not having any fevers or chills. I will replace the right chest port at a different site next week and leave it accessed for his treatment the next day. I did discuss the risks of the procedure such as bleeding, infection, pneumothorax. I also discussed the possibility of repeat infection and need to have this removed as well. The patient understands all the risks and would like a new port placed. Brad Chacon MD Pager: [facility] [address] [place] [address], [address] [place] [phone] Office:
[2019-08-29] MEDS: Lactated Ringers 1,000 ML 100 ML IV (14:24)
[2019-08-29] MEDS: Cefazolin 2 GM in 0.9% Normal Saline 100 ML IV (15:07)
[2019-08-29] MEDS: Bupiv/Epi 0.5% Mpf 30 ML Vial (15:22)
--- NOTE | 2019-08-29 15:49 | PCM.OPRPT ---
Problem List (1) Encounter for adjustment and management of vascular access device Status: Acute Report of Operation Date of Procedure: 08/29/19 Pre-Operative Diagnosis: Need for vascular access Post-Operative Diagnosis: Same Surgery/Procedure Performed:: Right ultrasound-guided and fluoroscopy-guided chest port placement utilizing right IJ Description of Procedure: After obtaining informed consent patient was brought back to the operating room MAC anesthesia was induced and the right chest and neck were prepped in normal sterile fashion. Ultrasound was used to evaluate both IJs and the right IJ was selected. Next, using a needle, the right IJ was accessed and a guidewire was passed on into the superior vena cava under fluoroscopy guidance. A small incision was made over the puncture site and the dilator introducer was placed over the guidewire. Next this was capped and the pocket was made for the port. 1% lidocaine with epinephrine was injected in the proposed port site. An incision was made with scalpel. Electrocautery was used to make a pocket under the skin and subcutaneous tissue. Hemostasis was obtained. Next, the catheter was tunneled up to the neck incision site and placed through the introducer. The peel-away introducer was removed and the position of the catheter was confirmed on fluoroscopy. Next, the catheter was trimmed and attached to the port with the locking device. Interrupted 2-0 Vicryl sutures were used to anchor the port to the chest wall and then the port was placed inside the pocket. The pocket was then flushed with saline and the port irrigated with saline. There was good blood return and the port flushed easily. Next, heparin was injected into the port. The skin was closed with subcutaneous interrupted 3-0 Vicryl sutures. A single 3-0 Vicryl sutures placed under the skin at the neck incision site. Steri-Strips were placed as well as op sites. Patient tolerated procedure well, was taken to PACU in stable condition. Chest x-ray will be obtained. Grafts/Implants Used: 8 Arabic PowerPort
--- NOTE | 2019-08-29 15:51 | DCINST_ITS ---
Discharge Diet: No Restrictions - Pain medication may cause nausea. You should typically eat light foods as you take your pain medication. Discharge Activity: Return to Normal Activity, May Shower - with your bandage in place in 1-2 days after surgery. DO NOT SHOWER WHEN YOUR PORT IS ACCESSED. Call your doctor if your incision/area has: Continuous Slow Oozing, Sudden Increased Bleeding, Increased Pain/ Swelling, Increased Redness Call your doctor if you observe: Fever of 101 or Higher Remove Dressing in (days):: 3 - When you remove the bandage, leave the steri- strips intact until they fall off. Allergies/Adverse Reactions: Allergies No Known Allergies Allergy (Verified 08/29/19 14:04) Medications to take at Discharge Aspirin E.C. [Ecotrin] 81 mg PO DAILY@0800 06/27/19 Omeprazole [Prilosec] 20 mg PO DAILY 06/27/19 Simvastatin [Zocor] 40 mg PO QHS 06/27/19 Levothyroxine [Synthroid] 75 mcg PO DAILY 07/17/19 fentaNYL patch [Duragesic Patch] 12 mcg TRANSDERM. Q3D 9 Days #3 patch 08/02/19 Primary Care Physician: Jaylon Tripp MD [Primary Care Provider] - Test Results: Test results from this visit will be discussed in further detail at your follow- up appointment, if applicable. Please Follow Up With: Brad Chacon MD When: Please call to schedule 2 week follow up appointment. [phone]
--- NOTE | 2019-08-29 15:55 | RAD_ITS ---
STUDY: X-RAY CHEST REASON FOR EXAM: Male, 59 years old. Post op port placement, image approved by Dr. Chacon at patient''s bedside TECHNIQUE: Single frontal view of the chest. COMPARISON: 08/03/19. FINDINGS: Left-sided Port-A-Cath in place tip in the region of the cavoatrial junction. Cardiac silhouette unremarkable. Pulmonary vascularity unremarkable. Aorta unremarkable. No focal airspace correlation. Nodular density is noted over the left midlung laterally. No pleural effusions. Upper abdomen unremarkable. Osseous structures intact. No pneumothorax. RAD/CXR for Line Placement IMPRESSION: Left port in place. No pneumothorax. Question left mid lung nodule. Further assessment with chest CT as clinically indicated. Electronically Signed: Srinivas Huggins, at 17:27 EDT Tel , Service support ,
== END 2019-08-29 16:47 | disposition home or self-care (01) ==
LOC: SDC 13:56 → AC 13:56
PROVIDERS: PCP Family Medicine; Referring Provider Surgery; Visit Provider Surgery
PROC: (CPT 36561; principal; 2019-08-29 15:15)
DX: Z45.2 Encounter for adjustment and management of vascular access device (principal); C10.8 Malignant neoplasm of overlapping sites of oropharynx; E06.9 Thyroiditis, unspecified; E78.00 Pure hypercholesterolemia, unspecified; K21.9 Gastro-esophageal reflux disease without esophagitis; Z86.73 Personal history of transient ischemic attack (TIA), and cerebral infarction without residual deficits; Z79.82 Long term (current) use of aspirin; Z79.899 Other long term (current) drug therapy; Z87.891 Personal history of nicotine dependence
CPT/HCPCS: 36561; 71045; 77001; J7120; C1788

== ENCOUNTER → 2019-12-25 09:22 | Outpatient (CLI) | payer MEDICARE, SELFPAY ==
[2019-12-13 12:54] VITALS: BMI 22.6
--- NOTE | 2019-12-25 09:23 | NM_ITS ---
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 WHOLE BODY 99m Tc MDP RADIONUCLIDE BONE SCINTIGRAPHY COMPARISON: FDG PET/CT study report 06/19/2019 FINDINGS: Following the intravenous administration of 26.0 mCi of 99m Tc MDP, whole body bone images reveal: 1. Increased radiopharmaceutical concentration is identified in the mid cervical spine posteriorly on the right, the left wrist and hand, sternoclavicular compartments of both shoulders, acromioclavicular compartment of the left shoulder, the left midfoot and bilateral forefoot. 2. The remaining skeletal structures are scintigraphically unremarkable with normal-appearing renal images and urinary bladder activity identified. Enhanced tracer distribution is demonstrated in the bilateral maxilla most consistent with periodontal disease and/or periostitis. Focal increased uptake is noted in the midline frontal calvarium and inter-orbital aspect of the skull likely representing periostitis. NM/Bone Scan Whole Body IMPRESSION: 1. The increase in radiopharmaceutical concentration defined in the cervical spine, left wrist, left hand, bilateral shoulders, the left midfoot and right-left forefoot is most consistent with degenerative arthritis. 2. There is no definitive scintigraphic evidence of osteoblastic skeletal metastatic disease on the current examination. Electronically Signed: Jf Purvis DO at 19:59 EDT Tel , Service support ,
== END ==
PROVIDERS: PCP Family Medicine; Referring Provider Internal Medicine Medical Oncology; Visit Provider Internal Medicine Medical Oncology
DX: C06.0 Malignant neoplasm of cheek mucosa (principal); C79.51 Secondary malignant neoplasm of bone
CPT/HCPCS: 78306

== ENCOUNTER → 2020-01-15 12:43 | Outpatient (CLI) | payer MEDICARE, SELFPAY ==
[2020-01-03 09:15] VITALS: BMI 22.6
--- NOTE | 2020-01-15 12:43 | CT_ITS ---
STUDY: CT ABDOMEN AND PELVIS WITH CONTRAST REASON FOR EXAM: Male, 59 years old. HEAD/NECK CANCER, ASSESS LIVER METS RADIATION DOSAGE (If Supplied By Facility): CTDIvol = ( 11.60 ) mGy, DLP = ( 457.86 ) mGycm TECHNIQUE: Transaxial images were obtained from the dome of the diaphragm to the symphysis pubis without oral contrast. IV 100mL Isovue-300 was administered. Sagittal and coronal images were reconstructed. Individualized dose optimization techniques were used for this CT. COMPARISON: None. FINDINGS: The visualized lung bases are unremarkable. The visualized portions of the heart are within normal limits. There is a worrisome hypodense lesion in the right lobe of the liver which could easily represent a metastasis. There is a simple cyst in the dome of the right liver measuring 1 cm. There are multiple gallstones. Normal spleen. Normal pancreas. Normal bilateral adrenal glands. There is pelvic caliectasis both kidneys without obstructive uropathy. Both ureters are normal course and caliber. No perinephric or periureteral inflammatory stranding noted. Normal visualized stomach. Normal small intestine. Scattered colonic diverticula without CT evidence of acute diverticulitis. The appendix is visualized and appears normal. Appendix best seen on coronal recon image sixty-two There is diffuse atherosclerotic calcification of the abdominal aorta, without a demonstrated aneurysm. Normal inferior vena cava. Normal retroperitoneum. Normal urinary bladder. There are prostatic calcifications. Normal abdominal wall. There are diffuse degenerative changes of the visualized lumbar spine. CT/Abdomen/Pelvis W IV Cont ONLY IMPRESSION: Worrisome hypodense lesion in the right lobe of liver likely is a metastasis. Colonic diverticulosis Kidneys show dilated renal pelves and calyces but no obstructive uropathy noted. Specifically, no perinephric or periureteral inflammatory stranding. Both ureters are of normal course and caliber Degenerative bony changes Electronically Signed: Pepe Kendrick MD at 14:52 EDT , Service support ,
[2020-01-15] MEDS: 0.9% Saline Lock 10 ML Syringe IV (13:00)
== END ==
PROVIDERS: PCP Family Medicine; Referring Provider Internal Medicine Medical Oncology; Visit Provider Internal Medicine Medical Oncology
DX: C06.0 Malignant neoplasm of cheek mucosa (principal); C78.7 Secondary malignant neoplasm of liver and intrahepatic bile duct
CPT/HCPCS: 74177; Q9967; A4216

== ENCOUNTER → 2020-05-06 07:37 | Outpatient (CLI) | payer MEDICARE, SELFPAY ==
[2020-04-17 09:12] VITALS: BMI 25.0
--- NOTE | 2020-05-06 07:39 | CT_ITS ---
STUDY: CT ABDOMEN AND PELVIS WITH CONTRAST REASON FOR EXAM: Male, 59 years old. HEAD AND NECK CA- RAD TX, LT NECK CANCER RESECTION, TONGUE CA RADIATION DOSAGE (If Supplied By Facility): CTDIvol = ( 9.49 ) mGy, DLP = ( 435.46 ) mGycm TECHNIQUE: Transaxial images were obtained from the dome of the diaphragm to the symphysis pubis without oral contrast. IV 100mL Isovue-300 was administered. Sagittal and coronal images were reconstructed. Individualized dose optimization techniques were used for this CT. COMPARISON: Comparison is made with prior study dated 01/15/2020. FINDINGS: The visualized lung bases are unremarkable. The visualized portions of the heart are within normal limits. The previously seen 2 small adjacent hypodense nodules in the midportion of the right lobe of the liver decreased in size. The larger measures 1.5 cm and the smaller measures 0.8 cm. There are multiple small gallstones. Normal spleen. Normal pancreas. Normal bilateral adrenal glands. Stable bilateral parapelvic renal cysts. There is a small hiatal hernia. Normal small intestine. There are multiple colonic diverticula consistent with diverticulosis. The appendix is visualized and appears normal. There is diffuse atherosclerotic calcification of the abdominal aorta, without a demonstrated aneurysm. Normal inferior vena cava. Normal retroperitoneum. Normal urinary bladder. There are prostatic calcifications. Small bilateral inguinal hernias containing fat. Mild spondylosis and disc space narrowing at the L3-L4 L4-L5 and L5-S1 levels. CT/Abdomen/Pelvis W IV Cont ONLY IMPRESSION: Interval decrease in size of the 2 adjacent hypodense nodules in the right lobe of the liver. Multiple small gallstones. Stable bilateral parapelvic renal cysts. Electronically Signed: Sean Small, at 8:49 EST , Service support ,
--- NOTE | 2020-05-06 07:39 | CT_ITS ---
STUDY: CT SOFT TISSUE NECK WITH CONTRAST REASON FOR EXAM: Male, 59 years old. TONGUE CA, HEAD AND NECK CA, LT NECK CANCER RESECTION, RAD TX RADIATION DOSAGE (If Supplied By Facility): CTDIvol = ( 12.13 ) mGy, DLP = ( 387.76 ) mGycm TECHNIQUE: The patient was scanned in a multi-detector CT scanner. High resolution transaxial imaging was performed following intravenous administration of IV 100mL Isovue-300. Sagittal and coronal images were reconstructed. Individualized dose optimization techniques were used for this CT. COMPARISON: None. FINDINGS: The patient is status post left radical neck dissection. Normal visualized nasopharynx. Normal retropharyngeal space. Normal perivertebral space. There is occlusion of the right carotid bifurcation with reconstitution of the cervical portion of the right internal carotid artery. Normal visualized bilateral faucial tonsils. The visualized tongue, tongue base and oropharynx are normal. The visualized cervical lymph nodes (levels I-) are within normal size limits, and maintain normal morphology. There is no demonstrated solid or cystic mass lesion. There is no abnormal contrast enhancement. Normal epiglottis, bilateral vallecula and hypopharynx. The pre-epiglottic and paraglottic adipose spaces are normal. Normal visualized bilateral piriform sinuses, aryepiglottic folds, vocal cords, and arytenoid-cricoid articulations. Normal subglottic trachea. Normal bilateral lobes of the thyroid gland. Normal visualized pulmonary apices. Partial opacification of the ethmoid sinuses bilaterally as well as the right sphenoid and right maxillary sinus. There is multilevel degenerative changes of the cervical spine. CT/Soft Tissue Neck WITH Contrast IMPRESSION: Status post left radical neck dissection. No recurrent carcinoma is seen. 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 Electronically Signed: Sean Small, at 12:50 EST , Service support ,
[2020-05-06] MEDS: 0.9% Saline Lock 10 ML Syringe IV (08:20)
== END ==
PROVIDERS: PCP Family Medicine; Referring Provider Internal Medicine Medical Oncology; Visit Provider Internal Medicine Medical Oncology
DX: C10.8 Malignant neoplasm of overlapping sites of oropharynx (principal); C78.7 Secondary malignant neoplasm of liver and intrahepatic bile duct
CPT/HCPCS: 70491; 74177; Q9967; A4216

== ENCOUNTER → 2020-07-01 10:15 | Outpatient (CLI) | payer MEDICARE, SELFPAY ==
[2020-06-19 10:32] VITALS: BMI 25.5
[2020-07-01 11:02] LABS: Amphetamine Urine VISTA NEGATIVE (<1000 ng/mL); Barbiturate Urine VISTA NEGATIVE (< 200 ng/mL); Benzodiazepine Urine VISTA NEGATIVE (< 200 ng/mL); Cocaine Urine VISTA NEGATIVE (< 300 ng/mL); Ecstacy Urine VISTA NEGATIVE (< 500 ng/mL); Methadone Urine VISTA NEGATIVE (< 300 ng/mL); PCP Urine VISTA NEGATIVE (< 25 ng/mL); THC Urine VISTA NEGATIVE (< 50 ng/mL); Vista UDS pH Range 6
== END ==
PROVIDERS: PCP Family Medicine; Referring Provider Anesthesiology Pain Medicine; Visit Provider Anesthesiology Pain Medicine
DX: F11.20 Opioid dependence, uncomplicated (principal)
CPT/HCPCS: 80307

== ENCOUNTER → 2020-07-17 12:38 | Outpatient (CLI) | payer MEDICARE, SELFPAY ==
[2020-07-10 09:20] VITALS: BMI 25.2
--- NOTE | 2020-07-17 12:41 | CT_ITS ---
STUDY: CT SOFT TISSUE NECK WITH CONTRAST REASON FOR EXAM: Male, 59 years old. RESTAGING METASTATIC OROPHARYNGEAL CA RADIATION DOSAGE (If Supplied By Facility): CTDIvol = ( 16.73 ) mGy, DLP = ( 514.13 ) mGycm TECHNIQUE: The patient was scanned in a multi-detector CT scanner. High resolution transaxial imaging was performed following intravenous administration of IV 75mL Isovue-300. Sagittal and coronal images were reconstructed. Individualized dose optimization techniques were used for this CT. COMPARISON: CT soft tissue neck 05/06/2020. FINDINGS: Normal bilateral parotid glands. Normal bilateral paving stone installer spaces. Normal bilateral parapharyngeal spaces. Occlusion right internal carotid artery. Patent left common carotid artery stent extending into the proximal internal carotid artery. Sublingual glands appear normal. Submandibular glands are not well visualized. Normal visualized nasopharynx. Normal retropharyngeal space. Normal perivertebral space. Normal visualized bilateral faucial tonsils. There appears to be patent ill-defined asymmetry of the tongue and a possible mass on the right measuring 31 x 29 mm in AP and transverse dimensions. Secretions appear pooled in the vallecula. The visualized cervical lymph nodes (levels I-) are within normal size limits, and maintain normal morphology. There is no abnormal contrast enhancement. Normal epiglottis, bilateral vallecula and hypopharynx. The pre-epiglottic and paraglottic adipose spaces are normal. Normal visualized bilateral piriform sinuses, aryepiglottic folds, vocal cords, and arytenoid-cricoid articulations. Normal subglottic trachea. Normal bilateral lobes of the thyroid gland. Normal visualized pulmonary apices. Normal visualized paranasal sinuses. Normal visualized cervical spine. CT/Soft Tissue Neck WITH Contrast IMPRESSION: residual or recurrent right hemiglossal mass appears more conspicuous than on the previous exam. Correlation with direct visualization recommended. Left radical neck dissection. Occluded right internal carotid artery again noted. Patent carotid stent on the left again noted. Electronically Signed: Todd Rodriguez MD at 23:07 EST , Service support ,
[2020-07-17] MEDS: 0.9% Saline Lock 10 ML Syringe IV (13:00)
== END ==
PROVIDERS: PCP Family Medicine; Referring Provider Internal Medicine Medical Oncology; Visit Provider Internal Medicine Medical Oncology
DX: C10.8 Malignant neoplasm of overlapping sites of oropharynx (principal); Z29.8 Encounter for other specified prophylactic measures
CPT/HCPCS: 70491; Q9967; A4216

== ENCOUNTER 2020-08-23 15:51 | Inpatient (IN) | payer MEDICARE, SELFPAY ==
[2020-08-19 08:30] VITALS: BMI 24.1
[2020-08-23] VITALS (11 sets, daily range): BP systolic 105–165; BP diastolic 60–89; PULSE 87–122; RESP 15–23; TEMP 36.8–38; O2SAT 91–96; BMI 24.9; BMI 24.1
--- NOTE | 2020-08-23 16:12 | EKG12_ITS ---
Test Reason : FEVER Blood Pressure : / mmHG Vent. Rate : 114 BPM Atrial Rate : 114 BPM P-R Int : 130 ms QRS Dur : 084 ms QT Int : 312 ms P-R-T Axes : 049 022 048 degrees QTc Int : 430 ms Sinus tachycardia Low voltage QRS (Limb Leads) Inferior infarct , age undetermined Abnormal ECG Confirmed by JOSEFINA WILSON, CECILIA ([id number]), graphics editor MARY HOWARD ([id number]) on 08/27/2020 12:30:53 PM Referred By: SHAKEEL Confirmed By:CECILIA ROCHA MD
--- NOTE | 2020-08-23 16:15 | ED.VISSUMM ---
- ER Visit Summary Date of Service: 08/23/20 Chief Complaint: Fever History of Present Illness: The patient is a 60 M presenting with fever and chills. Patient states this started today. He has had shortness of breath and cough. He has had nausea with no vomiting. He has myalgias and mild headache. He states on Wednesday he was choking and family was concerned that he may have aspirated. 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 His last chemo treatment was on Wednesday. He denies chest pain. Denies other complaints. Physical Examination: Blood pressure 165/60, temperature 99.5, heart rate 122, respiratory rate 23, pulse ox 91% room air. HEENT exam is unremarkable. Neck is supple. No meningismus Lungs are clear and equal bilaterally. Heart is regular tachycardic Abdomen is soft nontender nondistended. No guarding or rebound Extremities are unremarkable. No edema Skin is warm and dry. No rash No focal neurologic deficit. Remainder of exam is unremarkable. Emergency Department Course and Treatment: Patient was given IV fluids, Zofran. EKG is sinus tachycardia rate of 114. Chest x-ray read by myself and radiology shows no acute cardiopulmonary findings or changes. Negative for new consolidation, atelectasis or other infiltrates. Stable cardiac size. Negative for pleural effusion. CTA chest shows negative for pulmonary embolus. Normal thoracic aorta. Normal cardiac size. Trace pericardial effusion. Minimal coronary calcifications. Normal mediastinum and hilar areas. Azygos lobe present, normal variant. Chronic apical pleural thickening. Small patchy minimal patchy groundglass changes of the central right lower lobe and mild dependent groundglass changes of the bilateral lower lobes. Atelectatic changes versus early pneumonic infiltrates, nonspecific. Negative for pleural effusion. No acute osseous findings. No acute findings in the uppermost abdomen. CBC shows hemoglobin 12.5. Chemistries normal except for BUN 27. Urinalysis unremarkable. Troponin 0.056. Lactic acid normal. Covid is negative. Blood cultures were sent. Due to concerns for aspiration, patient was given Unasyn IV. Discussed with hospitalist for admission. Disposition: Admission Impression: Aspiration pneumonitis This note was generated with [employer] dictation software. It may contain incorrect words, spelling, and punctuation that were not noted in review of the chart prior to signing ED Disposition - Plan for ED Patient: Referrals: Jaylon Tripp MD [Primary Care Provider] -
[2020-08-23] MEDS: 0.9% Normal Saline 1,000 ML 1000 ML IV (17:03)
[2020-08-23] MEDS: Ondansetron 4 MG/2 ML Vial IV (17:03)
--- NOTE | 2020-08-23 17:04 | RAD_ITS ---
STUDY: X-RAY CHEST REASON FOR EXAM: Male, 60 years old. fever, cough TECHNIQUE: 1 view COMPARISON: Prior chest radiograph of 08/03/2019 FINDINGS: Right subclavian Port-A-Cath terminates in the distal superior vena cava. Negative for new consolidation, focal atelectasis or pleural effusion. Stable bilateral apical pleural thickening. Normal size heart. Normal mediastinum and eli. Normal visualized pulmonary arteries. Normal visualized aortic arch and descending thoracic aorta. Normal visualized thoracic spine. Normal visualized ribs, clavicles, and shoulders. There is no demonstrated abnormality of the visualized soft tissue structures of the upper abdomen. RAD/Chest 1 View (Portable) IMPRESSION: No acute cardiopulmonary findings or changes. Negative for new consolidation, atelectasis or other infiltrates. Stable cardiac size. Negative for pleural effusion. Electronically Signed: Elicia Dumont MD at 17:30 EST , Service support ,
[2020-08-23 17:17] LABS: Absolute Lymphocyte Count 0.32 X10^3/uL (0.83-4.51); Absolute Neutrophil Count 7.3 X10^3/uL (2.0-7.7); Basophil# 0.02 X10^3/uL; Basophil% 0.3 % (0-1); Eosinophil# 0.03 X10^3/uL; Eosinophils% 0.4 % (0-5); Hematocrit 39.1 % (40-54); Hemoglobin 12.5 g/dL (13.0-16.5); Lymphocyte # 0.32 X10^3/ul (4.0); Mean Corpuscular Hgb 29.1 pg (27.0-32.0); Mean Corpuscular Volume 91.1 fL (80-94); Mean Platelet Vol. 9.8 fl (6.2-12.0); Monocyte# 0.26 X10^3/uL; Monocyte% 3.3 % (0-10); NRBC Flagged by Analyzer 0 % (0-5); Neutrophil # 7.28 X10^3/uL (2.7-7.7); Neutrophil % 91.5 % (47-70); POSITIVE DIFFERENTIAL YES; Platelet Count 247 K/mm3 (150-450); RBC Distribution Width CV 13.2 % (11.6-14.6); RBC Distribution Width SD 42.7 fl (35.1-43.9); Red Blood Count 4.29 M/mm3 (4.6-6.2)
[2020-08-23 17:38] LABS: AST(SGOT) 17 U/L (15-37); Alanine Aminotransfer ALT/SGPT 35 U/L (16-61); Albumin, Serum 3.3 g/dL (3.2-5.0); Alkaline Phosphatase 83 U/L (45-117); Anion Gap 6 (5-15); BUN 27 mg/dL (7-18); BUN/Creat Ratio 38.8 RATIO (10-20); Calcium,Total 8.6 mg/dL (8.5-10.1); Chloride 103 mmol/L (98-107); EST Glomerular Filtration Rate 122 mL/min (>60); Est Glom Filt Rate - Afr Amer 148 mL/min (>60); Estimated Creatinine Clearance 116.54 ml/min; Globulin 3.2 g/dL (2.2-4.2); Glucose 103 mg/dL (74-106); Potassium 4.1 mmol/L (3.5-5.1); Protein, Total 6.5 g/dL (6.4-8.2); Sodium Level 137 mmol/L (136-145)
[2020-08-23 17:43] LABS: Differential Indicated SCAN CRITERIA MET
--- NOTE | 2020-08-23 17:52 | CT_ITS ---
STUDY: CTA CHEST REASON FOR EXAM: Male, 60 years old. r/o pe. Fever and cough RADIATION DOSAGE (If Supplied By Facility): CTDIvol = ( 11.16 ) mGy, DLP = ( 379.85 ) mGycm TECHNIQUE: The examination was performed with the intravenous administration of IV 100mL Isovue-370. Post-processing of the angiographic images was performed, with multiplanar reformation and 3D reconstruction. Individualized dose optimization techniques were used for this CT. COMPARISON: Chest radiograph of 08/23/2020 FINDINGS: Port-A-Cath terminates in the distal superior vena cava. Normal enhancement of the main pulmonary artery and right and left pulmonary arteries. Normal enhancement of the bilateral peripheral pulmonary arteries. There is no demonstrated pulmonary embolism. Minimal plaque and mild elongation of the thoracic aorta without aneurysm. There is no demonstrated aortic dissection. Normal cardiac size. Trace of pericardial effusion. Minimal coronary calcifications. Normal mediastinum. Normal hilar regions. Normal visualized trachea and bronchi. Slight patchy groundglass changes of the central right middle lobe. Mild dependent groundglass changes of the lower lobes. Azygos lobe present. Chronic apical pleural thickening. Negative for pleural effusion. Normal chest wall structures. Normal osseous structures. No acute findings in the uppermost abdomen. CT/CTA Chest W/WO Contrast IMPRESSION: Negative for pulmonary embolus. Normal thoracic aorta. Normal cardiac size. Trace pericardial effusion. Minimal coronary calcifications. Normal mediastinum and hilar areas. Azygos lobe present, normal variant. Chronic apical pleural thickening. Small patchy minimal patchy groundglass changes of the central right lower lobe and mild dependent groundglass changes of the bilateral lower lobes. Atelectatic changes versus early pneumonic infiltrates, nonspecific. Negative for pleural effusion. No acute osseous findings. No acute findings in the uppermost abdomen. Electronically Signed: Elicia Dumont MD at 18:40 EST , Service support ,
[2020-08-23 17:55] LABS: Lactic Acid 1.4 mmol/L (0.4-1.9)
[2020-08-23 18:05] LABS: Bacteria 0 SEEN /hpf (None Seen); Mucous, Urine 0 SEEN /hpf (<or=2+); Squamous Epithelial Cells - UA 0 SEEN /hpf (0-5)
[2020-08-23 18:16] LABS: Color, Urine Yellow (Yellow); Glucose, Dipstick Normal (Normal); Ketone-Dipstick Negative (Negative); Leukocyte Esterase-Dipstick 25 /ul (Negative); Nitrite-Dipstick Negative (Negative); Occult Blood-Urine 10 /ul (Negative); Protein-Dipstick 15 mg/dl (Negative); Specific Gravity, Urine 1.015 (1.002-1.030); Urine Bilirubin Dipstick Negative (Negative); Urine Clarity Clear (Clear); Urine Urobilinogen Normal (Normal)
[2020-08-23 18:17] LABS: Differential Comment SCANNED; Pathologist Review May foll
[2020-08-23 18:34] LABS: Red Blood Cells-Urine 0-5 SEEN /hpf (0-5); White Blood Cells 0-5 SEEN /hpf (0-5)
--- NOTE | 2020-08-23 19:38 | PCM.HP.STD ---
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 (8) Cancer of overlapping sites of oropharynx Status: Chronic (9) Encounter for adjustment and management of vascular access device Status: Resolved (10) Encounter for education Status: Resolved (11) Cancer-related pain Status: Chronic (12) Hyperlipidemia Status: Chronic Qualifiers: Hyperlipidemia type: unspecified Qualified Code(s): E78.5 - Hyperlipidemia, unspecified (13) Hypothyroidism Status: Chronic Qualifiers: Hypothyroidism type: unspecified Qualified Code(s): E03.9 - Hypothyroidism, unspecified (14) GERD (gastroesophageal reflux disease) Status: Chronic Qualifiers: Esophagitis presence: esophagitis presence not specified Qualified Code(s): K21.9 - Gastro-esophageal reflux disease without esophagitis (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 (16) CVA (cerebrovascular accident) Status: Chronic Qualifiers: CVA mechanism: unspecified Qualified Code(s): I63.9 - Cerebral infarction, unspecified Comment: w/ mild residual left hemiparesis (17) Sepsis associated with vascular access catheter Status: Resolved (18) Sepsis Status: Acute Qualifiers: Sepsis type: sepsis due to unspecified organism Sepsis acute organ dysfunction status: unspecified Qualified Code(s): A41.9 - Sepsis, unspecified organism (19) Infected venous access port Status: Resolved Qualifiers: Encounter type: initial encounter Qualified Code(s): T80.219A - Unspecified infection due to central venous catheter, initial encounter (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 Associated with symptoms is low-grade fever. He denies any shortness of breath or wheezing. He has chronic chest pain that increased with taking a deep breath. His family report that a couple of days ago he was choking on food and think that patient might have aspirated. Past Medical History Past Medical History (Chronic Problems): Chronic Problems (Last Reviewed 08/23/20 @ 20:[address] 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 Cesar Walker MD) Cancer of overlapping sites of oropharynx (Chronic) C10.8 Encounter for adjustment and management of vascular access device (Resolved) Z45.2 Encounter for education (Resolved) Z71.9 Cancer-related pain (Chronic) G89.3 Hyperlipidemia (Chronic) E78.5 Hypothyroidism (Chronic) E03.9 GERD (gastroesophageal reflux disease) (Chronic) K21.9 Ocular myasthenia gravis (Chronic) G70.00 Sepsis associated with vascular access catheter (Resolved) T82.7XXA, A41.9 Sepsis (Acute) A41.9 Infected venous access port (Resolved) T80.219A Chemotherapy management, encounter for (Chronic) Z51.11 CVA (cerebral vascular accident) I63.9 Hypercholesteremia E78.00 Thyroid dysfunction E07.9 squamous cell With neck dissection of lymph nodes and salivary gland, Radiation. 2004 surgery at [facility] Allergies No Known Allergies Allergy (Verified 08/23/20 15:51) Home Medications: Ambulatory Orders Medication Instructions Recorded Aspirin E.C. [Ecotrin] 81 mg PO DAILY@0800 06/27/19 Omeprazole [Prilosec] 20 mg PO DAILY 06/27/19 Simvastatin [Zocor] 40 mg PO QHS 06/27/19 Levothyroxine [Synthroid] 100 mcg PO DAILY 08/30/19 Naproxen Sodium [Aleve] 440 mg PO Q6H PRN 10/07/20 Fentanyl 25 mcg TOPICAL Q3D PRN 05/29/20 Gabapentin [Neurontin] 300 mg PO BID 06/19/20 Hydrocodone/Acetaminophen 1 tab PO BID PRN 06/19/20 [Hydrocodone-Acetamin 5-325 mg] Senna [Senokot] 2 tab PO BID 07/10/20 Ondansetron [Ondansetron Odt] 8 mg PO Q8H PRN PRN 30 Days #30 07/25/20 tab.rapdis Acetaminophen [Tylenol Extra 1,000 mg PO DAILY PRN PRN 08/23/20 Strength] Ibuprofen 400 mg PO DAILY PRN PRN 08/23/20 Minocycline [Minocin] 100 mg PO BID 08/23/20 Polyethylene Glycol 3350 [Miralax] 17 gm PO DAILY 08/23/20 Surgical History: Surgical History (Last Reviewed 08/24/20 @ 01:[address] Cesar Walker MD) History of laryngoscopy Z98.890 06/01/19 Julieta Mathew (Dr Cornelius) Psychiatric History: No pertinent psych hx Smoking Status: Former smoker - *Family History Maternal Family History: Family History (Last Reviewed 08/24/20 @ 01:[address] Cesar Walker MD) Father Colon cancer Brother squamous cell cancer Mother CVA (cerebral vascular accident) Review of Systems Constitutional: Reports: Chills, Fever. Denies: Weight Change HEENT: Denies: Head Aches, Sinus Congestion, Sinus Drainage Cardiovascular: Reports: Chest Pain. Denies: Palpitations Respiratory: Denies: Cough, Shortness of Breath Gastrointestinal: Denies: Abdominal Pain, Nausea, Vomiting Genitourinary: Denies: Dysuria Musculoskeletal: Denies: Joint Pain, Joint Tenderness Skin: Denies: Rash, Wounds Neurological: Denies: Numbness, Tingling, Focal weakness Psychiatric: Denies: Anxiety, Depression, Homicidal Ideations, Suicidal Ideations Hematologic/ Lymphatic: Denies: Easy Bruising, Easy Bleeding VTE Information - Inpt Only VTE Present on Admission: No VTE Mechan Device Prophylaxis: None VTE Pharm Prophylaxis ordered?: Yes Patient Problems: Active and Suspected Problems (Last Reviewed 08/23/20 @ 20:[address] Cesar Walker MD) Sepsis (Acute) Aspiration pneumonia (Acute) Sepsis (Acute) - Physical Exam Vitals/I&O's: Vital Signs Temp Pulse Resp BP Pulse Ox 100 F H 97 15 115/72 94 08/23/20 19:22 08/23/20 19:22 08/23/20 19:22 08/23/20 19:22 08/23/20 19:22 Oxygen Delivery Method Room Air Weight: 81 kg Body Mass Index (BMI) 24.9 Intake and Output for Last 24 Hours 08/21/20 08/22/20 08/23/20 23:59 23:59 23:59 Intake Total 1000 / 1000 Balance 1000 / 1000 General: Alert, Oriented x3, Cooperative HEENT: Atraumatic, PERRLA, EOMI, Normocephalic Neck: Supple, No JVD, Negative Carotid Bruits Lungs: Rhonchi Cardiovascular: Regular rate, Normal S1, Normal S2, No murmurs Abdomen: Bowel Sounds Present, Soft, Non Tender Extremities: No edema, Capillary Refill Less than 3 Seconds Skin: No rashes, No breakdown Musculoskeletal: No Tenderness to Palpation of Joints or Extremities Neurological: Cranial nerves II-XII grossly intact Psych/Mental Status: Normal Affect, Appropriate Microbiology Past 72 Hours 08/23/20 16:28 Mucosa - Nose SARS-CoV-2 Antigen (Rapid) - Final Laboratory Results 08/23/20 17:00: WBC 8.0, RBC 4.29 L, Hgb 12.5 L, Hct 39.1 L, MCV 91.1, MCH 29.1, MCHC 32.0, RDW Std Deviation 42.7, RDW Coeff of [place] 13.2, Plt Count 247, MPV 9.8, Immature Gran % (Auto) 0.500, Neut % (Auto) 91.5 H, Lymph % (Auto) 4.0 L, [place] % (Auto) 3.3, Eos % (Auto) 0.4, Baso % (Auto) 0.3, Absolute Neuts (auto) 7.3, Absolute Lymphs (auto) 0.32 L, Nucleated RBC % 0, Differential Comment SCANNED, Diff Path Review October08/23/20 17:00: Sodium 137, Potassium 4.1, Chloride 103, Carbon Dioxide 28.0, Anion Gap 6, BUN 27 H, Creatinine 0.70, Estim Creat Clear Calc 116.54, Est GFR (MDRD) Af Amer 148, Est GFR (MDRD) Non-Af 122, BUN/Creatinine Ratio 38.8 H, Glucose 103, Calcium 8.6, Total Bilirubin 0.50, AST 17, ALT 35, Alkaline Phosphatase 83, Troponin I 0.056 H, Total Protein 6.5, Albumin 3.3, Globulin 3.2, Albumin/Globulin Ratio 1.0 08/23/20 17:00: Lactic Acid 1.4 08/23/20 17:55: Urine Color Yellow, Urine Clarity Clear, Urine pH 7.0, Ur Specific [place] 1.015, Urine Protein 15 H, Urine Glucose (UA) Normal, Urine Ketones Negative, Urine Occult Blood 10 H, Urine Nitrite Negative, Urine Bilirubin Negative, Urine Urobilinogen Normal, Ur Leukocyte Esterase 25 H, Urine RBC 0-5 SEEN, Urine WBC 0-5 SEEN, Ur Squamous Epith Cells 0 SEEN, Urine Bacteria 0 SEEN, Urine Mucus 0 SEEN Current Medications Heparin Sodium (Beef Lung) (Heparin Pf Lock 10 Units/Ml 50 Units/5 Ml Syringe) 50 units IV UD PRN PRN Reason: Port-a-Cath (VAD)Heparin Flush Ampicillin Sodium/Sulbactam (Sodium 3 gm/ Sodium Chloride) 112 mls @ 150 mls/hr IV X1 ONE Stop: 08/23/20 19:56 Last Admin: 08/23/20 19:26 Dose: 150 mls/hr Documented by: Sodium Chloride (0.9% Saline Lock 10 Ml Syringe) 10 - 40 ml IV UD PRN PRN Reason: Port-a-Cath (VAD) Flush Sodium Chloride (0.9 % Nacl (Sterile) Posiflush 10 Ml) 10 - 40 ml IV UD PRN PRN Reason: Port access or dressing change Assessment/Plan All Active Problems (Last Reviewed 08/23/20 @ 20:[address] Cesar Walker MD) Sepsis (Acute) Aspiration pneumonia (Acute) Encounter for adjustment and management of vascular access device (Resolved) Encounter for education (Resolved) Sepsis associated with vascular access catheter (Resolved) Sepsis (Acute) Infected venous access port (Resolved) The patient is a 60 year old M with a significant history of oropharyngeal cancer on chemotherapy who presents emergency department with chills and fever low-grade fever and found to have a groundglass opacity of bilateral lower lobes and pneumonic infiltrates as well as elevated troponin; and with markers of SIRS. Sepsis secondary to aspiration pneumonia Lactic acid: 1.4 Heart rate of more than 90 A T-max of 100.4 [facility] Rapid Covid antigen negative Blood culture ?2 is pending Chest CTA with small patchy minimal patchy groundglass changes of the central right lower lobes and mild dependent groundglass changes of the bilateral lower lobes. Athletic changes versus early pneumonic infiltrate. Antibiotics: Unasyn was started emergency department and continued Albuterol as needed ordered Discussed with patient that he should be made n.p.o. and speech to evaluate him. However patient does not want speech to evaluate since patient stated that in the past, he has been put on a taking liquid and he is now ready to take any thickened liquid. Will start patient on regular diet per his request. Elevated troponin Likely type II PA from demand ischemia. Review of medical department labs showed elevated troponin Trend troponin Review of EKG showed Q waves in inferior leads more prominent compared to EKG on August 03, 2019. Admit to [facility] on telemetry Aspirin ordered. Facial dermatitis Minocycline continued Hypothyroidism Synthroid continued GERD Prilosec continued prior to hyperlipidemia Zocor continued Chronic pain with oropharyngeal cancer Fentanyl patch continued As needed NSAIDs continued Bowel protocol continued. DVT prophylaxis Subcutaneous Lovenox. Inpatient E&M: 21692 Init Hosp L3
--- NOTE | 2020-08-23 20:26 | ED.RN ---
contact pt's sister leonid malcolm with updates at [phone]
[2020-08-23] MEDS: Lactated Ringers 1,000 ML 75 ML IV (22:26)
[2020-08-23] MEDS: Gabapentin 300 MG Capsule PO (22:26)
[2020-08-23] MEDS: Atorvastatin Calcium 20 MG Tablet PO (22:26)
[2020-08-23] MEDS: Senna Tablet 2 TABLET PO (22:26)
--- NOTE | 2020-08-23 22:38 | NURSING ---
pt passed bedside swallow eval and tolerated well.
--- NOTE | 2020-08-23 23:15 | NURSING ---
spoke to dr. Walker, made clarified if he wanted to move pt to pcu d/t elevated troponin. states pt does not have cp, sob, or in distress. no new orders.
[2020-08-24] MEDS: Aspirin 325 MG Tablet PO (01:25)
[2020-08-24 03:30] VITALS: BP 112/80; PULSE 85; RESP 18; TEMP 37; O2SAT 94
[2020-08-24 03:43] LABS: Absolute Lymphocyte Count 0.59 X10^3/uL (0.83-4.51); Absolute Neutrophil Count 5.8 X10^3/uL (2.0-7.7); Basophil# 0.04 X10^3/uL; Basophil% 0.6 % (0-1); Eosinophil# 0.11 X10^3/uL; Eosinophils% 1.6 % (0-5); Hematocrit 38.7 % (40-54); Hemoglobin 12.6 g/dL (13.0-16.5); Lymphocyte # 0.59 X10^3/ul (4.0); Lymphocyte % 8.6 % (19-41); Mean Corp Hgb Conc 32.6 g/dL (32-36); Mean Corpuscular Hgb 29.8 pg (27.0-32.0); Mean Corpuscular Volume 91.5 fL (80-94); Mean Platelet Vol. 9.4 fl (6.2-12.0); Monocyte# 0.29 X10^3/uL; Monocyte% 4.2 % (0-10); NRBC Flagged by Analyzer 0 % (0-5); Neutrophil # 5.79 X10^3/uL (2.7-7.7); Neutrophil % 84.6 % (47-70); POSITIVE DIFFERENTIAL YES; Platelet Count 216 K/mm3 (150-450); RBC Distribution Width CV 13.2 % (11.6-14.6); RBC Distribution Width SD 42.9 fl (35.1-43.9); Red Blood Count 4.23 M/mm3 (4.6-6.2); White Blood Count 6.9 K/mm3 (4.4-11.0)
[2020-08-24 03:51] LABS: Differential Indicated SCAN CRITERIA MET
[2020-08-24 04:09] VITALS: PULSE 80
[2020-08-24 04:22] LABS: Anion Gap 4 (5-15); BUN 13 mg/dL (7-18); BUN/Creat Ratio 22.9 RATIO (10-20); Calcium,Total 8.5 mg/dL (8.5-10.1); Chloride 105 mmol/L (98-107); Creatinine, Serum 0.57 mg/dL (0.70-1.30); EST Glomerular Filtration Rate 155 mL/min (>60); Est Glom Filt Rate - Afr Amer 187 mL/min (>60); Estimated Creatinine Clearance 143.11 ml/min; Glucose 94 mg/dL (74-106); Potassium 3.8 mmol/L (3.5-5.1); Sodium Level 138 mmol/L (136-145)
[2020-08-24] MEDS: Levothyroxine 100 MCG Tablet PO (05:21)
[2020-08-24 06:13] LABS: Differential Comment SCANNED
[2020-08-24 07:24] VITALS: O2SAT 93
[2020-08-24 08:34] VITALS: BP 112/60; PULSE 86; RESP 16; TEMP 36.8; O2SAT 100
[2020-08-24 09:31] VITALS: PULSE 97
[2020-08-24] MEDS: Senna Tablet 2 TABLET PO (09:38)
[2020-08-24] MEDS: Gabapentin 300 MG Capsule PO (09:38)
[2020-08-24] MEDS: Polyethylene Glycol 3350 17 GM PACKET PO (09:38)
[2020-08-24] MEDS: Pantoprazole Sodium 20 MG Tablet PO (09:38)
[2020-08-24] MEDS: Enoxaparin 40 MG/0.4 ML Syringe SC (09:39)
--- NOTE | 2020-08-24 11:23 | DCINST_ITS ---
- Discharge Diagnoses Current Active Problems: Current Active and Chronic Problems (Last Reviewed 08/24/20 @ 01:[address] 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 Continue to use your incentive spirometer. Continue to keep yourself hydrated Allergies/Adverse Reactions: Allergies No Known Allergies Allergy (Verified 08/23/20 15:51) Medications to take at Discharge Aspirin E.C. [Ecotrin] 81 mg PO DAILY@0800 06/27/19 Omeprazole [Prilosec] 20 mg PO DAILY 06/27/19 Simvastatin [Zocor] 40 mg PO QHS 06/27/19 Levothyroxine [Synthroid] 100 mcg PO DAILY 08/30/19 Fentanyl 25 mcg TOPICAL Q3D PRN 05/29/20 Gabapentin [Neurontin] 300 mg PO BID 06/19/20 Hydrocodone/Acetaminophen [Hydrocodone-Acetamin 5-325 mg] 1 tab PO BID PRN 06/19/20 Senna [Senokot] 2 tab PO BID 07/10/20 Ondansetron [Ondansetron Odt] 8 mg PO Q8H PRN PRN 30 Days #30 tab.rapdis 07/25/20 Acetaminophen [Tylenol] 1,000 mg PO DAILY PRN PRN 08/23/20 Ibuprofen 400 mg PO DAILY PRN PRN 08/23/20 Minocycline [Minocin] 100 mg PO BID 08/23/20 Polyethylene Glycol 3350 [Miralax] 17 gm PO DAILY 08/23/20 Amoxicillin/Potassium Clav [Augmentin 875-125 Tablet] 1 ea PO BID 7 Days #14 tab 08/24/20 The following prescriptions were given: Amoxicillin/Potassium Clav [Augmentin 875-125 Tablet] 1 ea PO BID 7 Days #14 tab Transmission Status: Pending to [id number] Primary Care Physician: Jaylon Tripp MD [Primary Care Provider] - Please follow up with your Primary Care Physician in: within 1-2 weeks Test Results: Test results from this visit will be discussed in further detail at your follow- up appointment, if applicable. Please Follow Up With: Cesar Saab MD When: as scheduled Proposed Discharge Date: 08/24/20
--- NOTE | 2020-08-24 11:28 | PCM.DC.SUM ---
Discharge Date and Diagnosis - Problem List Patient Problems: Active and Suspected Problems (Last Reviewed 08/24/20 @ 01:[address] Cesar Walker MD) Sepsis (Acute) Aspiration pneumonia (Acute) Sepsis (Acute) Date of Admission: 08/23/20 Date of Discharge: 08/24/20 - Primary Discharge Diagnosis Acute Problems: Active Problems (Last Reviewed 08/24/20 @ 01:[address] Cesar Walker MD) Sepsis secondary to probable aspiration pneumonia Indeterminant troponin likely from demand ischemia - Secondary Discharge Diagnosis Chronic Problems: Chronic Problems (Last Reviewed 08/24/20 @ 01:[address] 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 Negative for new consolidation, atelectasis or other infiltrates. Stable cardiac size. Negative for pleural effusion. Electronically Signed: Elicia Dumont MD at 17:30 EST , Service support , Chest CTA 08/23/20 17:52 IMPRESSION: Negative for pulmonary embolus. Normal thoracic aorta. Normal cardiac size. Trace pericardial effusion. Minimal coronary calcifications. Normal mediastinum and hilar areas. Azygos lobe present, normal variant. Chronic apical pleural thickening. Small patchy minimal patchy groundglass changes of the central right lower lobe and mild dependent groundglass changes of the bilateral lower lobes. Atelectatic changes versus early pneumonic infiltrates, nonspecific. Negative for pleural effusion. No acute osseous findings. No acute findings in the uppermost abdomen. Electronically Signed: Elicia Dumont MD at 18:40 EST , Service support , Operations: None Procedures: None Summary of Care Provided: The patient is a 60 year old M past medical history of metastatic oropharyngeal cancer, on chemotherapy, who follows with Dr. Parra who presented with fever and chills noted on the same day of admission. Patient denied any worsening chest pain or shortness of breath. He has chronic chest pain that is pleuritic. His family said that a couple of days prior, patient was choking on food and probably aspirated. Patient stated that his coughing is no worse than previous. He was seen completing his breakfast without any issues. He has not been on oxygen throughout his stay. CTA of the chest was negative for acute PE, showed small minimal patchy groundglass changes of the right lower lobe and dependent areas of bilateral lower lobes. 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 At this point, it is feasible to allow patient to continue to eat for now in the absence of overt dysphagia. Patient was seen by PT and OT and no needs for therapy found. He was discharged on 1 week of Augmentin. Patient Problems: Active and Suspected Problems (Last Reviewed 08/24/20 @ 01:[address] Cesar Walker MD) Sepsis (Acute) Aspiration pneumonia (Acute) Sepsis (Acute) Subjective: On the day of discharge, patient was seen and examined. Denied any new complaints. Objective: Physical exam: General: Alert, Oriented x3, Cooperative, not pale, not jaundiced HEENT: Atraumatic, PERRLA, EOMI, Normocephalic Neck: Supple Lungs: Rhonchi Cardiovascular: Regular rate, Normal S1, Normal S2, No murmurs Abdomen: Bowel Sounds Present, Soft, Non Tender Extremities: No edema Skin: No rashes Musculoskeletal: No Tenderness to Palpation of Joints or Extremities Neurological: Cranial nerves II-XII grossly intact Psych/Mental Status: Normal Affect, Appropriate - Physical Exam Vitals/I&O's: Vital Signs Temp Pulse Resp BP Pulse Ox 98.3 F 97 16 112/60 100 08/24/20 08:34 08/24/20 09:31 08/24/20 08:34 08/24/20 08:34 08/24/20 08:34 Oxygen Delivery Method Room Air Weight: 78.471 kg Body Mass Index (BMI) 24.1 Intake and Output for Last 24 Hours 08/22/20 08/23/20 08/24/20 23:59 23:59 23:59 Intake Total 1225.75 / 1225.75 577.75 / 577.75 Balance 1225.75 / 1225.75 577.75 / 577.75 Microbiology Past 72 Hours 08/23/20 16:28 Mucosa - Nose SARS-CoV-2 Antigen (Rapid) - Final Laboratory Results 08/23/20 17:00: WBC 8.0, RBC 4.29 L, Hgb 12.5 L, Hct 39.1 L, MCV 91.1, MCH 29.1, MCHC 32.0, RDW Std Deviation 42.7, RDW Coeff of [place] 13.2, Plt Count 247, MPV 9.8, Immature Gran % (Auto) 0.500, Neut % (Auto) 91.5 H, Lymph % (Auto) 4.0 L, Tift % (Auto) 3.3, Eos % (Auto) 0.4, Baso % (Auto) 0.3, Absolute Neuts (auto) 7.3, Absolute Lymphs (auto) 0.32 L, Nucleated RBC % 0, Differential Comment SCANNED, Diff Path Review October08/23/20 17:00: Sodium 137, Potassium 4.1, Chloride 103, Carbon Dioxide 28.0, Anion Gap 6, BUN 27 H, Creatinine 0.70, Estim Creat Clear Calc 116.54, Est GFR (MDRD) Af Amer 148, Est GFR (MDRD) Non-Af 122, BUN/Creatinine Ratio 38.8 H, Glucose 103, Calcium 8.6, Total Bilirubin 0.50, AST 17, ALT 35, Alkaline Phosphatase 83, Troponin I 0.056 H, Total Protein 6.5, Albumin 3.3, Globulin 3.2, Albumin/Globulin Ratio 1.0 08/23/20 17:00: Lactic Acid 1.4 08/23/20 17:55: Urine Color Yellow, Urine Clarity Clear, Urine pH 7.0, Ur Specific [place] 1.015, Urine Protein 15 H, Urine Glucose (UA) Normal, Urine Ketones Negative, Urine Occult Blood 10 H, Urine Nitrite Negative, Urine Bilirubin Negative, Urine Urobilinogen Normal, Ur Leukocyte Esterase 25 H, Urine RBC 0-5 SEEN, Urine WBC 0-5 SEEN, Ur Squamous Epith Cells 0 SEEN, Urine Bacteria 0 SEEN, Urine Mucus 0 SEEN 08/23/20 22:06: Troponin I 0.120 H 08/24/20 00:37: Troponin I 0.122 H 08/24/20 03:37: WBC 6.9, RBC 4.23 L, Hgb 12.6 L, Hct 38.7 L, MCV 91.5, MCH 29.8, MCHC 32.6, RDW Std Deviation 42.9, RDW Coeff of [place] 13.2, Plt Count 216, MPV 9.4, Immature Gran % (Auto) 0.400, Neut % (Auto) 84.6 H, Lymph % (Auto) 8.6 L, Tift % (Auto) 4.2, Eos % (Auto) 1.6, Baso % (Auto) 0.6, Absolute Neuts (auto) 5.8, Absolute Lymphs (auto) 0.59 L, Nucleated RBC % 0, Differential Comment SCANNED 08/24/20 03:37: Sodium 138, Potassium 3.8, Chloride 105, Carbon Dioxide 29.0, Anion Gap 4 L, BUN 13, Creatinine 0.57 L, Estim Creat Clear Calc 143.11, Est GFR (MDRD) Af Amer 187, Est GFR (MDRD) Non-Af 155, BUN/Creatinine Ratio 22.9 H, Glucose 94, Calcium 8.5 08/24/20 03:37: Troponin I 0.091 H Current Medications Albuterol Sulfate (Albuterol 2.5 Mg/3 Ml Vial.Neb.) 2.5 mg INHALATION Q2H PRN PRN PRN Reason: Shortness of Breath/Wheezing Aspirin (Aspirin 81 Mg Tab.Chew) 81 mg PO DAILY@0800 [facility] Atorvastatin Calcium (Atorvastatin Calcium 20 Mg Tablet) 20 mg PO QHS [facility] Last Admin: 08/23/20 22:26 Dose: 20 mg Documented by: Enoxaparin Sodium (Enoxaparin 40 Mg/0.4 Ml Syringe) 40 mg SC DAILY [facility] Last Admin: 08/24/20 09:39 Dose: 40 mg Documented by: Fentanyl (Fentanyl 25 Mcg Patch) 25 mcg TD Q3D [facility] Gabapentin (Gabapentin 300 Mg Capsule) 300 mg PO BID [facility] Last Admin: 08/24/20 09:38 Dose: 300 mg Documented by: Heparin Sodium (Beef Lung) (Heparin Pf Lock 10 Units/Ml 50 Units/5 Ml Syringe) 50 units IV UD PRN PRN Reason: Port-a-Cath (VAD)Heparin Flush Lactated Ringer's () 1,000 mls @ 75 mls/hr IV .[id number] [facility] Last Infusion: 08/24/20 06:06 Dose: 75 mls/hr Documented by: Ampicillin Sodium/Sulbactam (Sodium 3 gm/ Sodium Chloride) 112 mls @ 150 mls/hr IV Q6 [facility] Last Infusion: 08/24/20 06:06 Dose: Infused Documented by: Ibuprofen (Ibuprofen 200 Mg Tablet) 400 mg PO DAILY PRN PRN PRN Reason: Pain 1-10 or Fever Levothyroxine Sodium (Levothyroxine 100 Mcg Tablet) 100 mcg PO DAILY@0600 [facility] Last Admin: 08/24/20 05:21 Dose: 100 mcg Documented by: Minocycline HCl (Minocycline 100 Mg Capsule) 100 mg PO BID [facility] Last Admin: 08/24/20 10:02 Dose: Not Given Documented by: Ondansetron HCl (Ondansetron 4 Mg/2 Ml Vial) 4 mg IV Q8H PRN PRN PRN Reason: NAUSEA/VOMITING Pantoprazole Sodium (Pantoprazole Sodium 20 Mg Tablet) 20 mg PO DAILY [facility] Last Admin: 08/24/20 09:38 Dose: 20 mg Documented by: Polyethylene Glycol (Polyethylene Glycol 3350 17 Gm Packet) 17 gm PO DAILY [facility] Last Admin: 08/24/20 09:38 Dose: 17 gm Documented by: Senna (Senna Tablet) 2 tablet PO BID [facility] Last Admin: 08/24/20 09:38 Dose: 2 tablet Documented by: Sodium Chloride (0.9% Saline Lock 10 Ml Syringe) 10 - 40 ml IV UD PRN PRN Reason: Port-a-Cath (VAD) Flush Sodium Chloride (0.9 % Nacl (Sterile) Posiflush 10 Ml) 10 - 40 ml IV UD PRN PRN Reason: Port access or dressing change Discharge Diet: No Restrictions Discharge Activity: Return to Normal Activity Home Medications: Medications to take at Discharge Aspirin E.C. [Ecotrin] 81 mg PO DAILY@0800 06/27/19 Omeprazole [Prilosec] 20 mg PO DAILY 06/27/19 Simvastatin [Zocor] 40 mg PO QHS 06/27/19 Levothyroxine [Synthroid] 100 mcg PO DAILY 08/30/19 Fentanyl 25 mcg TOPICAL Q3D PRN 05/29/20 Gabapentin [Neurontin] 300 mg PO BID 06/19/20 Hydrocodone/Acetaminophen [Hydrocodone-Acetamin 5-325 mg] 1 tab PO BID PRN 06/19/20 Senna [Senokot] 2 tab PO BID 07/10/20 Ondansetron [Ondansetron Odt] 8 mg PO Q8H PRN PRN 30 Days #30 tab.rapdis 07/25/20 Acetaminophen [Tylenol] 1,000 mg PO DAILY PRN PRN 08/23/20 Ibuprofen 400 mg PO DAILY PRN PRN 08/23/20 Minocycline [Minocin] 100 mg PO BID 08/23/20 Polyethylene Glycol 3350 [Miralax] 17 gm PO DAILY 08/23/20 Amoxicillin/Potassium Clav [Augmentin 875-125 Tablet] 1 ea PO BID 7 Days #14 tab 08/24/20 Following Prescriptions Were Given to Patient: Amoxicillin/Potassium Clav [Augmentin 875-125 Tablet] 1 ea PO BID 7 Days #14 tab Transmission Status: Received by [address] Primary Care Physician: Jaylon Tripp MD [Primary Care Provider] - Please follow up with your Primary Care Physician in: within 1-2 weeks Please Follow Up With: Cesar Saab MD When: as scheduled Disposition: Home Minutes spent on discharge:: 40 Patient Condition:: Stable Medical Necessity - Tobacco Use Smoking Status: Former smoker Tobacco Use: Cigarettes Meaningful Use Info Meaningful Use Diagnoses (Choose all that apply): None applicable Inpatient E&M: 71865 Disch Hosp
[2020-08-24 11:37] VITALS: O2SAT 97
[2020-08-24] MEDS: 0.9% Saline Lock 10 ML Syringe IV (11:56)
== END 2020-08-24 12:03 | disposition home or self-care (01) | DRG 178 ==
LOC: ED 16:28 → MS3 19:44
PROVIDERS: Admitting Provider Hospitalist; Emergency Provider Emergency Medicine; PCP Family Medicine; Visit Provider Internal Medicine
DX: J69.0 Pneumonitis due to inhalation of food and vomit (principal); I24.8 Other forms of acute ischemic heart disease; C10.8 Malignant neoplasm of overlapping sites of oropharynx; L30.9 Dermatitis, unspecified; E03.9 Hypothyroidism, unspecified; K21.9 Gastro-esophageal reflux disease without esophagitis; K59.00 Constipation, unspecified; G70.00 Myasthenia gravis without (acute) exacerbation; E78.5 Hyperlipidemia, unspecified; G89.3 Neoplasm related pain (acute) (chronic); H01.006 Unspecified blepharitis left eye, unspecified eyelid; E78.00 Pure hypercholesterolemia, unspecified; Z86.73 Personal history of transient ischemic attack (TIA), and cerebral infarction without residual deficits; Z79.82 Long term (current) use of aspirin; Z79.899 Other long term (current) drug therapy; Z87.891 Personal history of nicotine dependence
CPT/HCPCS: 36415; 71045; 71275; 80048; 80053; 81001; 83605; 84484; 85025; 87040; 87426; 93005; 97161; 97165; 99285; J7030; J7120; Q9967; A4216; J0295; J2405

== ENCOUNTER 2020-08-29 13:58 | Emergency (ER) | payer MEDICARE, SELFPAY ==
[2020-08-26 09:31] VITALS: BMI 24.5
[2020-08-29 13:59] VITALS: BP 134/78; PULSE 105; RESP 20; TEMP 37.6; O2SAT 98; BMI 24.4
--- NOTE | 2020-08-29 14:35 | RAD_ITS ---
STUDY: X-RAY CHEST REASON FOR EXAM: Male, 60 years old. Fever TECHNIQUE: Single AP portable view of the chest. COMPARISON: 08/23/2020 FINDINGS: Right internal jugular chest port which is unchanged. The lungs are clear and expanded. There is no demonstrated pleural abnormality. Normal size heart. Normal mediastinum and eli. Normal visualized pulmonary arteries. Normal visualized aortic arch and descending thoracic aorta. Normal visualized thoracic spine. Normal visualized ribs, clavicles, and shoulders. There is no demonstrated abnormality of the visualized soft tissue structures of the upper abdomen. RAD/Chest 1 View (Portable) IMPRESSION: Normal x-ray examination of the chest. Electronically Signed: Jf Hall MD at 15:16 EST Tel , Service support ,
[2020-08-29 15:02] LABS: Absolute Lymphocyte Count 0.41 X10^3/uL (0.83-4.51); Basophil# 0.03 X10^3/uL; Basophil% 0.6 % (0-1); Eosinophil# 0.03 X10^3/uL; Eosinophils% 0.6 % (0-5); Hematocrit 36.7 % (40-54); Hemoglobin 12.5 g/dL (13.0-16.5); Lymphocyte # 0.41 X10^3/ul (4.0); Lymphocyte % 8.4 % (19-41); Mean Corp Hgb Conc 34.1 g/dL (32-36); Mean Corpuscular Hgb 30.6 pg (27.0-32.0); Mean Corpuscular Volume 89.7 fL (80-94); Mean Platelet Vol. 10.1 fl (6.2-12.0); Monocyte# 0.31 X10^3/uL; Monocyte% 6.4 % (0-10); NRBC Flagged by Analyzer 0 % (0-5); Neutrophil # 4.03 X10^3/uL (2.7-7.7); POSITIVE DIFFERENTIAL YES; Platelet Count 212 K/mm3 (150-450); RBC Distribution Width CV 13.3 % (11.6-14.6); RBC Distribution Width SD 43.5 fl (35.1-43.9); Red Blood Count 4.09 M/mm3 (4.6-6.2); White Blood Count 4.9 K/mm3 (4.4-11.0)
[2020-08-29 15:11] LABS: Differential Indicated SCAN CRITERIA MET
[2020-08-29 15:33] LABS: ALB/GLOB Ratio 0.9 RATIO (0.9-2.4); AST(SGOT) 23 U/L (15-37); Alanine Aminotransfer ALT/SGPT 42 U/L (16-61); Albumin, Serum 3.1 g/dL (3.2-5.0); Alkaline Phosphatase 87 U/L (45-117); Anion Gap 6 (5-15); BUN 15 mg/dL (7-18); BUN/Creat Ratio 28.2 RATIO (10-20); Calcium,Total 8.5 mg/dL (8.5-10.1); Chloride 98 mmol/L (98-107); Creatinine, Serum 0.53 mg/dL (0.70-1.30); EST Glomerular Filtration Rate 167 mL/min (>60); Est Glom Filt Rate - Afr Amer 202 mL/min (>60); Estimated Creatinine Clearance 153.92 ml/min; Globulin 3.6 g/dL (2.2-4.2); Glucose 84 mg/dL (74-106); Potassium 3.7 mmol/L (3.5-5.1); Protein, Total 6.7 g/dL (6.4-8.2); Sodium Level 131 mmol/L (136-145)
[2020-08-29 15:37] LABS: Lactic Acid 0.8 mmol/L (0.4-1.9)
--- NOTE | 2020-08-29 15:38 | ED.DCSUM_ITS ---
History of Present Illness Chief Complaint: Fever Informant: Patient, Family Narrative: Patient is a 60-year-old male with a past medical history of oropharyngeal cancer currently undergoing chemotherapy for the past 5 weeks. He was previously on Keytruda for 1 year prior to that. He was admitted to the hospital last week for pneumonia and discharged on Augmentin. He is still on this. This morning he checked his temperature and found it to be 102 degrees. He otherwise felt fine. He did not feel like he had any fever or chills. He still has a lingering cough that is nonproductive. Denies any chest pain or significant shortness of breath. He denies any urinary symptoms. He has de veloped some diarrhea with the Augmentin. Denies any nausea or vomiting. He states he has been compliant with his Augmentin. Past Medical History - Allergies and Home Meds Allergies/Adverse Reactions: Allergies No Known Allergies Allergy (Verified 08/26/20 09:34) Primary Care Physician: Jaylon Tripp MD [Primary Care Provider] - Smoking Status: Former smoker Review of Systems All systems negative except as indicated General: Reports: Fever. Denies: Chills, Sweats Eyes: Denies: Visual changes - bilaterally, Diplopia ENT: Denies: Rhinorrhea, Sore throat Cardiovascular: Denies: Chest pain, Palpitations Respiratory: Reports: Cough. Denies: Dyspnea, Dyspnea on exertion Gastrointestinal: Reports: Diarrhea. Denies: Abdominal pain, Nausea, Vomiting Genitourinary: Denies: Dysuria, Hematuria, Frequency Musculoskeletal: Denies: Back pain, Extremity Pain Skin: Denies: Rash, Wounds Neurological: Denies: Headache, Weakness, Numbness Physical Exam Vital Signs/Narrative: Vital Signs Temp Pulse Resp BP Pulse Ox 08/29/20 13:59 99.6 F H 105 H 20 H 134/78 H 98 Inital Vital Signs reviewed: Yes General: Well nourished, Well developed, No Acute Distress Head: Normocephalic, Atraumatic Eyes: Perrl, EOMI ENT: Moist mucous membranes, No rhinorrhea Neck: Supple, Nontender Cardiovascular: Regular rate, Regular rhythm, No murmurs, - Respiratory: No distress, CTA bilaterally, Chest nontender, - - Her anterior wall chest port present. No overlying signs of infection. Abdomen: Soft, Nontender, Nondistended, Normal bowel sounds Back: Nontender, Normal Inspection Extremities: Nontender, No edema Skin: Normal color, No rash Neurological: Alert, Oriented x3, Cranial nerves II-XII grossly intact, Normal Strength, Normal Sensation Psychological: Normal affect, Normal Mood Diagnostic/Tx/Re-eval Chest X-Ray - ED: 1 View - Single view portable x-ray interpreted by myself. No obvious consolidations. No pleural effusions. Right sided port catheter in place. Normal cardiac silhouette. Agree with radiologist interpretation. - Medical Decision Making Patient presents to the emergency department for fever on chemotherapy. On arrival to the emergency department he is mildly tachycardic with a temperature of 99.6. Blood cultures and lab work being obtained. He is currently on Augmentin at home. We will repeat chest x-ray with a history of a pneumonia as well as urinalysis. No signs of skin infection. Patient's chest x-ray did not show any signs of infection. Urinalysis did not show any signs of infection. Covid test was negative. He is not neutropenic. Did speak to his oncologist, Dr. Saab. He recommended that given the patient does not have a fever here and no evidence of infection he can be discharged home. He is to continue on his Augmentin. He will follow up with him as an outpatient. This was all discussed with the patient. Return precautions are reviewed with him. He is agreeable with this plan. Discharged home in stable condition. All questions were answered. ED Disposition - Plan for ED Patient: Disposition: Home or Assisted Living Diagnosis: Fever Instructions: ED Fever Control (Adult) Referrals: Jaylon Tripp MD [Primary Care Provider] - 2 Days
[2020-08-29 15:52] LABS: Bacteria 0 SEEN /hpf (None Seen); Mucous, Urine 0 SEEN /hpf (<or=2+); Red Blood Cells-Urine 0 SEEN /hpf (0-5); Squamous Epithelial Cells - UA 0 SEEN /hpf (0-5); White Blood Cells 0 SEEN /hpf (0-5)
[2020-08-29 16:04] VITALS: BP 137/78; PULSE 102; RESP 12; TEMP 37.6; O2SAT 98
[2020-08-29 16:10] LABS: Color, Urine Yellow (Yellow); Glucose, Dipstick Normal (Normal); Ketone-Dipstick Negative (Negative); Leukocyte Esterase-Dipstick Negative /ul (Negative); Nitrite-Dipstick Negative (Negative); Occult Blood-Urine 10 /ul (Negative); Protein-Dipstick 15 mg/dl (Negative); Urine Bilirubin Dipstick Negative (Negative); Urine Clarity Sl. Cloudy (Clear); Urine Urobilinogen Normal (Normal)
[2020-08-29 16:44] LABS: Amorphous Sediment 1+
[2020-08-29 17:13] VITALS: BP 145/82; PULSE 110; RESP 17; O2SAT 98
== END 2020-08-29 17:14 | disposition home or self-care (01) ==
PROVIDERS: Emergency Provider Emergency Medicine; PCP Family Medicine
DX: R50.9 Fever, unspecified (principal); C10.9 Malignant neoplasm of oropharynx, unspecified; J18.9 Pneumonia, unspecified organism; Z79.2 Long term (current) use of antibiotics; Z79.899 Other long term (current) drug therapy; Z87.891 Personal history of nicotine dependence
CPT/HCPCS: 36591; 71045; 80053; 81001; 83605; 85025; 87040; 87086; 87426; 99285

== ENCOUNTER → 2020-09-06 08:41 | Outpatient (CLI) | payer MEDICARE, SELFPAY ==
[2020-09-02 09:05] VITALS: BMI 24.0
--- NOTE | 2020-09-06 08:46 | CT_ITS ---
STUDY: CT SOFT TISSUE NECK WITH CONTRAST REASON FOR EXAM: Male, 60 years old. ASSESS TREATMENT RESPONSE-HEAD NECK CANCER RADIATION DOSAGE (If Supplied By Facility): CTDIvol = ( 11.06 ) mGy, DLP = ( 637.64 ) mGycm TECHNIQUE: The patient was scanned in a multi-detector CT scanner. High resolution transaxial imaging was performed following intravenous administration of IV 100mL Isovue-300. Sagittal and coronal images were reconstructed. Individualized dose optimization techniques were used for this CT. COMPARISON: CT of the neck dated June 20162020. PET/CT dated July 16, 2020 FINDINGS: The asymmetric lobular appearance of the posterior aspect of the tongue is unchanged from the prior study. No focal mass is seen in the tongue and there is less edema in the tongue compared to the prior study. Maximum width of the tongue on the prior study 5.64 cm compared to the current exam at 5.02 cm. Previously seen small amount of fluid in the posterior midline anterior aspect of the tongue has nearly resolved with only a tiny focus remaining at 1.25 cm, which could represent focal necrosis of the parenchyma in this region. No new mass is seen in the remaining aspects of the oral cavity or soft tissues of the neck. 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 Mild fatty atrophy of the bilateral parotid glands. Normal bilateral inventory control supervisor spaces. Normal bilateral parapharyngeal spaces. Normal bilateral carotid spaces. Normal bilateral sublingual and submandibular glands and spaces. Normal visualized nasopharynx. Normal retropharyngeal space. Normal perivertebral space. Normal visualized bilateral faucial tonsils. The visualized cervical lymph nodes (levels I-) are within normal size limits, and maintain normal morphology. There is no demonstrated solid or cystic mass lesion. There is no abnormal contrast enhancement. Normal epiglottis, bilateral vallecula and hypopharynx. The pre-epiglottic and paraglottic adipose spaces are normal. Normal visualized bilateral piriform sinuses, aryepiglottic folds, vocal cords, and arytenoid-cricoid articulations. Normal subglottic trachea. Significant hypoplasia versus previous resection of the thyroid gland. There are bilateral pulmonary apical fibrotic changes. Normal visualized paranasal sinuses. There is multilevel degenerative changes of the cervical spine. CT/Soft Tissue Neck WITH Contrast IMPRESSION: 1. The asymmetric lobular appearance of the posterior aspect of the tongue is unchanged from the prior study. 2. No focal mass is seen in the tongue and there is less edema in the tongue compared to the prior study. Maximum width of the tongue on the prior study 5.64 cm compared to the current exam at 5.02 cm. 3. Previously seen small amount of fluid in the posterior midline anterior aspect of the tongue has nearly resolved with only a tiny focus remaining at 1.25 cm, which could represent focal necrosis of the parenchyma in this region. 4. No new mass is seen in the remaining aspects of the oral cavity or soft tissues of the neck. 5. 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 Electronically Signed: Mark Leonardo MD at 18:30 EDT , Service support ,
--- NOTE | 2020-09-06 08:46 | CT_ITS ---
STUDY: CT ABDOMEN WITH CONTRAST REASON FOR EXAM: Male, 60 years old. ASSESS TREATMENT RESPONSE-HEAD NECK CANCER RADIATION DOSAGE (If Supplied By Facility): CTDIvol = ( 11.06 ) mGy, DLP = ( 637.64 ) mGycm TECHNIQUE: Transaxial images were obtained post I.V. administration of IV 100mL Isovue-300, and oral contrast. Sagittal and coronal images were reconstructed. Individualized dose optimization techniques were used for this CT. COMPARISON: PET/CT 07/16/[address] abdomen and pelvis 05/06/2020 FINDINGS: 3 mm medial right lower lobe nodule on image 10. The visualized portions of the heart are within normal limits. Stable, indeterminate right hepatic lobe hypodense lesions measuring up to 1.1 cm. The gallbladder is filled with calcified stones. Normal spleen. Normal pancreas. Normal bilateral adrenal glands. Normal right kidney. Normal left kidney. There are multiple bilateral renal parapelvic cysts with normal caliber ureters. normal visualized stomach. Normal small intestine. Normal colon. The appendix is visualized and appears normal. Mild aortic atherosclerotic disease. Normal inferior vena cava. Normal retroperitoneum. Normal abdominal wall. Normal osseous structures. CT/Abdomen WITH IV Contrast IMPRESSION: 1. There is a 3 mm medial right lower lobe nodule, not definitely seen on prior exams. Follow-up chest CT in 3 months can be obtained to document resolution or stability. 2. Cholelithiasis. 3. Stable indeterminate right hepatic lobe hypodense lesions. Electronically Signed: Danielle Grace MD at 11:24 EDT Tel , Service support ,
[2020-09-06] MEDS: 0.9% Saline Lock 10 ML Syringe IV (09:17)
== END ==
PROVIDERS: PCP Family Medicine; Referring Provider Internal Medicine Medical Oncology; Visit Provider Internal Medicine Medical Oncology
DX: C10.8 Malignant neoplasm of overlapping sites of oropharynx (principal)
CPT/HCPCS: 70491; 74160; Q9967